=== PATIENT | female | born 1950 | race Hispanic/Latino ===

== ENCOUNTER 2021-04-06 17:16 | Inpatient (IN) | payer MEDICARE ==
[2021-04-06] MEDS: QUEtiapine 100 MG TAB PO SCH (21:56)
[2021-04-06] MEDS ORDERED: traMADol 50 MG TAB PO ONE (22:00)
--- NOTE | 2021-04-07 09:18 | History and Physical Report ---
GP History & Physical - History of Present Illness Date of admission: 04/06/21 Date of Examination: 04/07/21 Reason for Admission: Failure of Outpatient Treatment, Severe anxiety/depression, Unable to care for self History of Present Illness: Per Admission note: pt is a 70yrs old female admitted to the for bipolar disorder, pt arrived to the unit at approximately 1915 via stretcher accompanied by EMS staff, pt was taken to her room, pt was transfer from stretcher to bed. pt is alert and oriented to person, pt is confused, disorganized, responding to internal stimuli, she does not known why she is here, pt is easily irritable. pt refused to sign admission paper,.pt is non ambulatory, incontinent of bowel and bladder. pt has hx of right hip prosthesis infection, chronic GERD, chronic encephalopathy, frequent fall, osteoporosis, bipolar disorder, right total hip arthroplasty. skin assessment completed, pt noted to have scare on right hip, groin area rash, scab on left ankle, bruises on upper extremity, dressing noted on right foot. pt oriented to the unit, unit guideline explained, no distress noted, will continue to monitor for safety. pt on fall precaution, seroquel 300mg po and tramadol 50 mg po given at bedtime. pt has few bite of sandwich and cup of juice. see vital section for vital signs. The patient was seen today, she is disheveled and disrobed. There is items all over her floor. She is confused and agitated. She is yelling out. She has poor insight and unable to give any history or insight as to what is presently going on with her. PAST PSYCHIATRIC HISTORY: Unable to obtain PAST MEDICAL HISTORY: None reported Family Psychiatric History: None reported or documented SOCIAL HISTORY Unable to obtain REVIEW OF SYSTEMS Unable to obtain MENTAL STATUS EXAMINATION General Appearance and Behavior: Age appropriate, good hygiene, not wearing appropriate clothes, good eye contact, cooperative polite with questioning. Cooperation: Participating/engaged Psychomotor Behavior: Psychomotor agitation Mood: Good Affect and affective range: congruent with stated mood Thought Process: Circumstantial, Illogical, Thought Content: None Speech: Normal tone and pace Suicidal Ideation:SI Homicidal Ideation: Denies HIl Impulse Control: Impaired Insight and Judgment: Poor insight and judgment Memory: Limited Attention: Divided attention impaired Orientation: Alert, oriented, Assessment and Plan (1) Bipolar disorder with psychotic features Current Visit: Yes Status: Acute Treatment Plan Patient admitted for inpatient psychiatric evaluation, medication adjustment and close monitoring The patient's behavior, mood, sleep and appetite will be closely monitored. Patient enrolled in individual and group therapeutic sessions and encouraged to attend. Patient provided with a safe and structured environment. Patient's physical health needs will be addressed by the Hospitalist. Hospitalist Consulted Labs including CBC, CMP, Lipid profile and Hemoglobin A1C levels ordered for baseline reference Social Assessment will be completed and the Operations Administrative Assistant will work with patient and family to ensure a suitable and safe disposition Medication adjustment will be made as clinically indicated Restarted home medications Usual Wellness Caodaism/Preservation: - Start Melatonin 5 mg po QHS to promote circadian rhythm - Start [place]-3 for brain health, reduce impulsivity, and as adjunctive treatment for mood disorder, continue upon discharge given overall benefits. The patient agreed on the treatment plan, understood the risk, benefit, alt ernative treatment, potential consequence of no treatment, and gave informed consent. Estimated days: 7 Post hospital care: primary care provider, psychiatric provider This certifies that the patient will be treated for agitation Case staffed with Dr. Hawkins Legal Status: Voluntary Reaction to Hospitalization: Accepting Medications and Allergies Allergies Allergy/AdvReac Type Severity Reaction Status Date / Time lithium AdvReac Unknown Unverified 04/06/21 17:18 Home Medications Medication Instructions Recorded Confirmed Last Taken Type Cholecalciferol Vit D3 [Vitamin D3 1,000 units PO DAILY 04/07/21 04/07/21 Unknown History 1,000 UNIT TAB] Enoxaparin 40 mg SUB-Q DAILY 04/07/21 04/07/21 Unknown History Omeprazole 20 mg PO DAILY 04/07/21 04/07/21 Unknown History Oxycodone HCl [oxyCODONE] 10 mg PO Q6HR PRN 04/07/21 04/07/21 Unknown History QUEtiapine [SEROquel] 25 mg PO Q6HR PRN 04/07/21 04/07/21 Unknown History Quetiapine Fumarate [SEROquel] 300 mg PO BID 04/07/21 04/07/21 Unknown History Thiamine [Vitamin B-1] 100 mg PO DAILY 04/07/21 04/07/21 Unknown History lamoTRIgine [LaMICtal] 100 mg PO BID 04/07/21 04/07/21 Unknown History traMADoL [Ultram 50 MG tab] 50 mg PO Q12HR PRN 04/07/21 04/07/21 Unknown History Active Meds: Active Medications Quetiapine Fumarate (Quetiapine 100 Mg Tab) 300 mg PO BID [facility] Last Admin: 04/06/21 21:56 Dose: 300 mg Documented by: Results - Results Labs/Vitals: Laboratory Last Values POC Glucose 90 mg/dL (70-105) 04/06/21 21:28 Last Vital Signs Temp 97.7 F 04/06/21 22:00 Pulse 117 H 04/06/21 22:00 Resp 20 04/06/21 22:00 BP 136/86 04/06/21 22:00 Pulse Ox 99 04/06/21 22:00 Physical Examination - Constitutional Vitals: Vital Signs Temp Pulse Resp BP Pulse Ox 97.7 F 117 H 20 136/86 99 04/06/21 22:00 04/06/21 22:00 04/06/21 22:00 04/06/21 22:00 04/06/21 22:00 Temperature -Last 24 Hours Temperature 97.7 F Mental Status Exam - Vital signs Last Vital Signs Temp 97.7 F 04/06/21 22:00 Pulse 117 H 04/06/21 22:00 Resp 20 04/06/21 22:00 BP 136/86 04/06/21 22:00 Pulse Ox 99 04/06/21 22:00 Physician Certification - Certification Statement Physician Certification Statement: This is an acknowledgement statement that JORDANA LORENZO is a 70 year old F who requires inpatient psychiatric admission for treatment which could reasonably be expected to improve the patient's condition for Estimated period of time patient will need to remain in the hospital: [ ] Plan for post-hospital care: [ ]
[2021-04-07] MEDS ORDERED: QUEtiapine 25 MG TAB PO PRN (09:22)
[2021-04-07] MEDS ORDERED: NON-FORMULARY EACH (Omeprazole [Omeprazole] 20 MG Capsule.Dr) PO SCH (10:00)
[2021-04-07] MEDS: QUEtiapine 100 MG TAB PO SCH ×2 (11:28→21:08)
[2021-04-07] MEDS: lamoTRIgine 100 MG TAB PO SCH ×2 (11:30→21:08)
[2021-04-07] MEDS: PANTOPRAZOLE 20 MG TAB PO SCH (11:30)
[2021-04-07 13:17] LABS: Basophils % (Auto) 0.3 % (0.0-1.8); Eosinophils % (Auto) 0.3 % (0.0-4.3); Hematocrit 30.1 % (30.3-42.9); Hemoglobin 9.8 gm/dl (10.1-14.3); Lymphocytes # (Auto) 1.2 K/mm3 (1.2-5.4); Lymphocytes % (Auto) 18.3 % (13.4-35.0); Mean Corpuscular HGB Conc 33 % (30-34); Mean Corpuscular Volume 89 fl (79-97); Monocytes # (Auto) 0.5 K/mm3 (0.0-0.8); Monocytes % (Auto) 7.3 % (0.0-7.3); Platelet Count 402 K/mm3 (140-440); Red Blood Count 3.39 M/mm3 (3.65-5.03); Red Cell Distribution Width 18.4 % (13.2-15.2)
[2021-04-07 13:44] LABS: Alanine Aminotransferase 21 units/L (7-56); Albumin 2.5 g/dL (3.9-5); Blood Urea Nitrogen 9 mg/dL (7-17); Calcium 8.2 mg/dL (8.4-10.2); Hemolysis Index 9
[2021-04-07 13:45] LABS: BUN/Creatinine Ratio 13
--- NOTE | 2021-04-07 14:45 | Consultation ---
History of Present Illness - Reason for Consult Consult date: 04/07/21 Medical Management Requesting physician: APRIL GANDHI - History of Present Illness 70 YO Female with Bipolar Disorder, Vascular Dementia, Cerebral Atherosclerosis, GERD, Asthma, Chronic Pain Syndrome, Osteoperosis admitted to [facility] for Psychiatric stabilization. Patient seen and evaluated in the recreation room. No reported nursing events. Patient appears comfortable. Past History Past Medical History: GERD, other (See HPI) Past Surgical History: total hip replacement Social history: Family history: hypertension Medications and Allergies Allergies Allergy/AdvReac Type Severity Reaction Status Date / Time lithium AdvReac Unknown Unverified 04/06/21 17:18 Home Medications Medication Instructions Recorded Confirmed Last Taken Type Amoxicillin [Trimox CAP] 1,000 mg PO BID 04/07/21 04/07/21 Unknown History Cholecalciferol Vit D3 [Vitamin D3 1,000 units PO DAILY 04/07/21 04/07/21 Unknown History 1,000 UNIT TAB] DULoxetine [Cymbalta] 60 mg PO QDAY 04/07/21 04/07/21 Unknown History Docusate Sodium [Colace CAP] 100 mg PO DAILY 04/07/21 04/07/21 Unknown History Enoxaparin 40 mg SUB-Q DAILY 04/07/21 04/07/21 Unknown History Lactobacillus Acidophilus 2 cap PO BID 04/07/21 04/07/21 Unknown History [Acidophilus Lactobacilli] Omeprazole 20 mg PO DAILY 04/07/21 04/07/21 Unknown History Oxycodone HCl [oxyCODONE] 10 mg PO Q6HR PRN 04/07/21 04/07/21 Unknown History QUEtiapine [SEROquel] 25 mg PO Q6HR PRN 04/07/21 04/07/21 Unknown History Quetiapine Fumarate [SEROquel] 300 mg PO BID 04/07/21 04/07/21 Unknown History Thiamine [Vitamin B-1] 100 mg PO DAILY 04/07/21 04/07/21 Unknown History bisacodyL [Dulcolax tab] 10 mg PO DAILY PRN 04/07/21 04/07/21 Unknown History lamoTRIgine [LaMICtal] 100 mg PO BID 04/07/21 04/07/21 Unknown History traMADoL [Ultram 50 MG tab] 50 mg PO Q12HR PRN 04/07/21 04/07/21 Unknown History Active Meds: Active Medications Cholecalciferol (Cholecalciferol (Vit D3) 1000 Unit (25 Mcg) Tab) 1,000 unit PO DAILY [facility] Lamotrigine (Lamotrigine 100 Mg Tab) 100 mg PO BID [facility] Last Admin: 04/07/21 11:30 Dose: 100 mg Documented by: Pantoprazole Sodium (Pantoprazole 20 Mg Tab) 20 mg PO QDAY [facility] Last Admin: 04/07/21 11:30 Dose: 20 mg Documented by: Quetiapine Fumarate (Quetiapine 100 Mg Tab) 300 mg PO BID [facility] Last Admin: 04/07/21 11:28 Dose: 300 mg Documented by: Quetiapine Fumarate (Quetiapine 25 Mg Tab) 25 mg PO Q6HR PRN PRN Reason: Agitation Thiamine HCl (Thiamine 100 Mg Tab) 100 mg PO DAILY [facility] Tramadol HCl (Tramadol 50 Mg Tab) 50 mg PO Q12HR PRN PRN Reason: Pain, Moderate (4-6) Review of Systems ROS unobtainable: due to mental status Exam - Constitutional Vitals: Temp Pulse Resp BP Pulse Ox 97.7 F 117 H 20 136/86 99 04/06/21 22:00 04/06/21 22:00 04/06/21 22:00 04/06/21 22:00 04/06/21 22:00 General appearance: Present: no acute distress, well-nourished - EENT Eyes: Present: PERRL ENT: hearing intact, clear oral mucosa - Neck Neck: Present: supple, normal ROM - Respiratory Respiratory effort: normal Respiratory: bilateral: CTA - Cardiovascular Heart Sounds: Present: S1 & S2. Absent: rub, click - Extremities Extremities: pulses symmetrical, No edema Peripheral Pulses: within normal limits - Abdominal General gastrointestinal: Present: soft, non-tender, non-distended, normal bowel sounds Female genitourinary: Present: normal - Integumentary Integumentary: Present: clear, warm, dry - Musculoskeletal Musculoskeletal: gait normal, strength equal bilaterally - Psychiatric Psychiatric: no intact judgment & insight, no memory intact - Neurologic Neurologic: CNII-XII intact, moves all extremities Results - Labs CBC & Chem 7: 04/07/21 12:56 04/07/21 12:56 Labs: Abnormal lab results 04/07/21 04/07/21 Range/Units 12:56 12:56 RBC 3.39 L (3.65-5.03) M/mm3 Hgb 9.8 L (10.1-14.3) gm/dl Hct 30.1 L (30.3-42.9) % RDW 18.4 H (13.2-15.2) % Seg Neutrophils % 73.8 H (40.0-70.0) % Sodium 131 L (137-145) mmol/L Chloride 97.3 L (98-107) mmol/L Carbon Dioxide 21 L (22-30) mmol/L Glucose 181 H (65-100) mg/dL Calcium 8.2 L (8.4-10.2) mg/dL Alkaline Phosphatase 334 H (35-129) units/L Total Protein 5.3 L (6.3-8.2) g/dL Albumin 2.5 L (3.9-5) g/dL Assessment and Plan - Patient Problems (1) Vascular dementia with behavioral disturbance Current Visit: Yes Status: Acute Plan to address problem: For prompting, verbal redirection, benzodiazepine therapy as clinically indicated. (2) Cerebral atherosclerosis Current Visit: Yes Status: Acute Plan to address problem: Antiplatelet therapy, supportive care, continue medical management (3) Chronic pain syndrome Current Visit: Yes Status: Acute Plan to address problem: Pain control, supportive care. (4) GERD (gastroesophageal reflux disease) Current Visit: Yes Status: Acute Plan to address problem: PPI therapy, supportive care.
[2021-04-07] MEDS: CHOLECALCIFEROL (VIT D3) 1000 UNIT (25 mcg) TAB PO SCH (15:23)
[2021-04-07] MEDS: THIAMINE 100 MG TAB PO SCH (15:23)
--- NOTE | 2021-04-08 08:26 | Progress Note ---
Subjective Date of service: 04/08/21 Principal diagnosis: Bipolar disorder Subjective Comment: Per Psych Nurse: 70 YO Female with Bipolar Disorder, Vascular Dementia, Cerebral Atherosclerosis, GERD, Asthma, Chronic Pain Syndrome, Osteoperosis admitted to [facility] for Psychiatric stabilization. Patient seen and evaluated in the recreation room. No reported nursing events. Patient appears comfortable. Psych Progress HPI In my interview with the patient this morning, the patient reports mood as just okay, she thinkss she is [facility] and been treated for dementia. Patient knows year but does not know the month. Patient reported by nurse to intermittently yell, scream and appears to be talking to family members. Today patient says she plans to read. Reason for continuing inpatient treatment: Pt presents as confused but has dementia, will continue to observe for behv disturbances Review of Symptoms: Constitutional: Negative for weight loss ENT: Negative for stridor Respiratory: Negative for cough or hemoptysis All other systems reviewed and are negative MENTAL STATUS EXAMINATION General Appearance and Behavior: Age appropriate, good hygiene, wearing appropriate clothes, poor eye contact, uncooperative with questioning. Cooperation: disengaged Psychomotor Behavior: Psychomotor agitation Mood: n/a Affect and affective range: euthymic, euphoric Thought Process: Illogical, echolalial Thought Content: delusional Speech: pressured, loud volume at times Intellectual Functioning: Average Suicidal Ideation: n/a Homicidal Ideation: n/a Impulse Control: Impaired Insight and Judgment: Limited insight and judgment Memory: Short-term memory impaired Attention: Divided attention impaired Orientation: Alert, Treatment Plan Cotinue current meds Patient admitted for inpatient psychiatric evaluation, medication adjustment and close monitoring The patient's behavior, mood, sleep and appetite will be closely monitored. Patient enrolled in individual and group therapeutic sessions and encouraged to attend. Patient provided with a safe and structured environment. Patient's physical health needs will be addressed by the Hospitalist. Hospitalist Consulted Labs including CBC, CMP, Lipid profile and Hemoglobin A1C levels ordered for baseline reference Social Assessment will be completed and the Psych Rn will work with patient and family to ensure a suitable and safe disposition Medication adjustment will be made as clinically indicated Usual Wellness Yarsanism/Preservation: - Start Trazodone 50 mg po QHS & 50 mg po QHS PRN between 10 PM & 2 AM for insomnia - Start Melatonin 5 mg po QHS to promote circadian rhythm - Start [place]-3 for brain health, reduce impulsivity, and as adjunctive treatment for mood disorder, continue upon discharge given overall benefits. - Start B1 prophylaxis with 200 mg po for 5 days The patient agreed on the treatment plan, understood the risk, benefit, alternative treatment, potential consequence of no treatment, and gave informed consent. Initial Certification Inpatient psych services: I certify that the inpatient psychiatric services are required for treatment that could reasonably be expected to improve the patient's condition. Estimated days: 5 Post hospital care: primary care provider, psychiatric provider Medications and Allergies Allergies Allergy/AdvReac Type Severity Reaction Status Date / Time lithium AdvReac Unknown Unverified 04/06/21 17:18 Home Medications Medication Instructions Recorded Confirmed Last Taken Type Amoxicillin [Trimox CAP] 1,000 mg PO BID 04/07/21 04/07/21 Unknown History Cholecalciferol Vit D3 [Vitamin D3 1,000 units PO DAILY 04/07/21 04/07/21 Unknown History 1,000 UNIT TAB] DULoxetine [Cymbalta] 60 mg PO QDAY 04/07/21 04/07/21 Unknown History Docusate Sodium [Colace CAP] 100 mg PO DAILY 04/07/21 04/07/21 Unknown History Enoxaparin 40 mg SUB-Q DAILY 04/07/21 04/07/21 Unknown History Lactobacillus Acidophilus 2 cap PO BID 04/07/21 04/07/21 Unknown History [Acidophilus Lactobacilli] Omeprazole 20 mg PO DAILY 04/07/21 04/07/21 Unknown History Oxycodone HCl [oxyCODONE] 10 mg PO Q6HR PRN 04/07/21 04/07/21 Unknown History QUEtiapine [SEROquel] 25 mg PO Q6HR PRN 04/07/21 04/07/21 Unknown History Quetiapine Fumarate [SEROquel] 300 mg PO BID 04/07/21 04/07/21 Unknown History Thiamine [Vitamin B-1] 100 mg PO DAILY 04/07/21 04/07/21 Unknown History bisacodyL [Dulcolax tab] 10 mg PO DAILY PRN 04/07/21 04/07/21 Unknown History lamoTRIgine [LaMICtal] 100 mg PO BID 04/07/21 04/07/21 Unknown History traMADoL [Ultram 50 MG tab] 50 mg PO Q12HR PRN 04/07/21 04/07/21 Unknown History Active Meds: Active Medications Bisacodyl (Bisacodyl 5 Mg Tab) 10 mg PO DAILY PRN PRN Reason: Constipation Cholecalciferol (Cholecalciferol (Vit D3) 1000 Unit (25 Mcg) Tab) 1,000 unit PO DAILY [facility] Last Admin: 04/07/21 15:23 Dose: Not Given Documented by: Docusate Sodium (Docusate Sodium 100 Mg Cap) 100 mg PO DAILY [facility] Lamotrigine (Lamotrigine 100 Mg Tab) 100 mg PO BID [facility] Last Admin: 04/07/21 21:08 Dose: 100 mg Documented by: Pantoprazole Sodium (Pantoprazole 20 Mg Tab) 20 mg PO QDAY [facility] Last Admin: 04/07/21 11:30 Dose: 20 mg Documented by: Quetiapine Fumarate (Quetiapine 100 Mg Tab) 300 mg PO BID [facility] Last Admin: 04/07/21 21:08 Dose: 300 mg Documented by: Thiamine HCl (Thiamine 100 Mg Tab) 100 mg PO DAILY [facility] Last Admin: 04/07/21 15:23 Dose: Not Given Documented by: Tramadol HCl (Tramadol 50 Mg Tab) 50 mg PO Q12HR PRN PRN Reason: Pain, Moderate (4-6) Results - Results Labs/Vitals: Laboratory Last Values WBC 6.3 K/mm3 (4.5-11.0) 04/07/21 12:56 RBC 3.39 M/mm3 (3.65-5.03) L 04/07/21 12:56 Hgb 9.8 gm/dl (10.1-14.3) L 04/07/21 12:56 Hct 30.1 % (30.3-42.9) L 04/07/21 12:56 MCV 89 fl (79-97) 04/07/21 12:56 MCH 29 pg (28-32) 04/07/21 12:56 MCHC 33 % (30-34) 04/07/21 12:56 RDW 18.4 % (13.2-15.2) H 04/07/21 12:56 Plt Count 402 K/mm3 (140-440) 04/07/21 12:56 Lymph % (Auto) 18.3 % (13.4-35.0) 04/07/21 12:56 [place] % (Auto) 7.3 % (0.0-7.3) 04/07/21 12:56 Eos % (Auto) 0.3 % (0.0-4.3) 04/07/21 12:56 Baso % (Auto) 0.3 % (0.0-1.8) 04/07/21 12:56 Lymph # (Auto) 1.2 K/mm3 (1.2-5.4) 04/07/21 12:56 [place] # (Auto) 0.5 K/mm3 (0.0-0.8) 04/07/21 12:56 Eos # (Auto) 0.0 K/mm3 (0.0-0.4) 04/07/21 12:56 Baso # (Auto) 0.0 K/mm3 (0.0-0.1) 04/07/21 12:56 Seg Neutrophils % 73.8 % (40.0-70.0) H 04/07/21 12:56 Seg Neutrophils # 4.7 K/mm3 (1.8-7.7) 04/07/21 12:56 Sodium 131 mmol/L (137-145) L 04/07/21 12:56 Potassium 3.6 mmol/L (3.6-5.0) 04/07/21 12:56 Chloride 97.3 mmol/L (98-107) L 04/07/21 12:56 Carbon Dioxide 21 mmol/L (22-30) L 04/07/21 12:56 Anion Gap 16 mmol/L 04/07/21 12:56 BUN 9 mg/dL (7-17) 04/07/21 12:56 Creatinine 0.7 mg/dL (0.6-1.2) 04/07/21 12:56 Estimated GFR > 60 ml/min 04/07/21 12:56 BUN/Creatinine Ratio 13 % 04/07/21 12:56 Glucose 181 mg/dL (65-100) H 04/07/21 12:56 POC Glucose 90 mg/dL (70-105) 04/06/21 21:28 Calcium 8.2 mg/dL (8.4-10.2) L 04/07/21 12:56 Total Bilirubin 0.20 mg/dL (0.1-1.2) 04/07/21 12:56 AST 23 units/L (5-40) 04/07/21 12:56 ALT 21 units/L (7-56) 04/07/21 12:56 Alkaline Phosphatase 334 units/L (35-129) H 04/07/21 12:56 Total Protein 5.3 g/dL (6.3-8.2) L 04/07/21 12:56 Albumin 2.5 g/dL (3.9-5) L 04/07/21 12:56 Albumin/Globulin Ratio 0.9 % 04/07/21 12:56 Last Vital Signs Temp 98.6 F 04/07/21 19:47 Pulse 98 H 04/07/21 19:47 Resp 17 04/07/21 19:47 BP 125/77 04/07/21 19:47 Pulse Ox 100 04/07/21 19:47
[2021-04-08] MEDS: QUEtiapine 100 MG TAB PO SCH ×2 (10:50→21:08)
[2021-04-08] MEDS: PANTOPRAZOLE 20 MG TAB PO SCH (10:53)
[2021-04-08] MEDS: lamoTRIgine 100 MG TAB PO SCH ×2 (10:54→21:08)
[2021-04-08] MEDS: CHOLECALCIFEROL (VIT D3) 1000 UNIT (25 mcg) TAB PO SCH (10:54)
[2021-04-08] MEDS: THIAMINE 100 MG TAB PO SCH (10:55)
[2021-04-08] MEDS: DOCUSATE SODIUM 100 MG CAP PO SCH (12:33)
[2021-04-08] MEDS: traMADol 50 MG TAB PO PRN (21:08)
--- NOTE | 2021-04-09 07:20 | Progress Note ---
Subjective Date of service: 04/09/21 Principal diagnosis: Bipolar disorder Subjective Comment: Per Psych Nurse: pt spent last evening in activity room sitting quietly in evy chair, alert and oriented to person and place, calm and cooperative, confused, forgetful, able to make needs known, c/o of right hip pain, 9/10 on pain level, tramadol 50mg po given with bedtime medication, no behavioral issue, refused snack, non ambulatory, no distress noted, will continue to monitor for safety Psych Progress HPI Patient seen this AM, in room and in bed, says she still need a minute to sleep. Nursing note reviewed. Pt confused, due to demential but calm and cooperative per nursing notes. Per brother, he reports though patient has history of bipolar but her confusion and memory issues started after her hip surgery couple of months ago, and since then she has been forgetful and confused. Denies major behv health issues. Reason for continuing inpatient treatment: Pt presents as confused but has dementia, will continue to observe for behv disturbances Review of Symptoms: Constitutional: Negative for weight loss ENT: Negative for stridor Respiratory: Negative for cough or hemoptysis All other systems reviewed and are negative MENTAL STATUS EXAMINATION General Appearance and Behavior: Age appropriate, good hygiene, wearing appropriate clothes, poor eye contact, uncooperative with questioning. Cooperation: disengaged Psychomotor Behavior: Psychomotor agitation Mood: n/a Affect and affective range: euthymic, euphoric Thought Process: Illogical, echolalial Thought Content: delusional Speech: pressured, loud volume at times Intellectual Functioning: Average Suicidal Ideation: n/a Homicidal Ideation: n/a Impulse Control: Impaired Insight and Judgment: Limited insight and judgment Memory: Short-term memory impaired Attention: Divided attention impaired Orientation: Alert, Treatment Plan Continue current meds Patient admitted for inpatient psychiatric evaluation, medication adjustment and close monitoring The patient's behavior, mood, sleep and appetite will be closely monitored. Patient enrolled in individual and group therapeutic sessions and encouraged to attend. Patient provided with a safe and structured environment. Patient's physical health needs will be addressed by the Hospitalist. Hospitalist Consulted Labs including CBC, CMP, Lipid profile and Hemoglobin A1C levels ordered for baseline reference Social Assessment will be completed and the Advanced Practice Professional will work with patient and family to ensure a suitable and safe disposition Medication adjustment will be made as clinically indicated Usual Wellness Caodaism/Preservation: - Start Trazodone 50 mg po QHS & 50 mg po QHS PRN between 10 PM & 2 AM for insomnia - Start Melatonin 5 mg po QHS to promote circadian rhythm - Start Beason-3 for brain health, reduce impulsivity, and as adjunctive treatment for mood disorder, continue upon discharge given overall benefits. - Start B1 prophylaxis with 200 mg po for 5 days The patient agreed on the treatment plan, understood the risk, benefit, alternative treatment, potential consequence of no treatment, and gave informed consent. Initial Certification Inpatient psych services: I certify that the inpatient psychiatric services are required for treatment that could reasonably be expected to improve the patient's condition. Estimated days: 5 Post hospital care: primary care provider, psychiatric provider Medications and Allergies Allergies Allergy/AdvReac Type Severity Reaction Status Date / Time lithium AdvReac Unknown Unverified 04/06/21 17:18 Home Medications Medication Instructions Recorded Confirmed Last Taken Type Amoxicillin [Trimox CAP] 1,000 mg PO BID 04/07/21 04/07/21 Unknown History Cholecalciferol Vit D3 [Vitamin D3 1,000 units PO DAILY 04/07/21 04/07/21 Unknown History 1,000 UNIT TAB] DULoxetine [Cymbalta] 60 mg PO QDAY 04/07/21 04/07/21 Unknown History Docusate Sodium [Colace CAP] 100 mg PO DAILY 04/07/21 04/07/21 Unknown History Enoxaparin 40 mg SUB-Q DAILY 04/07/21 04/07/21 Unknown History Lactobacillus Acidophilus 2 cap PO BID 04/07/21 04/07/21 Unknown History [Acidophilus Lactobacilli] Omeprazole 20 mg PO DAILY 04/07/21 04/07/21 Unknown History Oxycodone HCl [oxyCODONE] 10 mg PO Q6HR PRN 04/07/21 04/07/21 Unknown History QUEtiapine [SEROquel] 25 mg PO Q6HR PRN 04/07/21 04/07/21 Unknown History Quetiapine Fumarate [SEROquel] 300 mg PO BID 04/07/21 04/07/21 Unknown History Thiamine [Vitamin B-1] 100 mg PO DAILY 04/07/21 04/07/21 Unknown History bisacodyL [Dulcolax tab] 10 mg PO DAILY PRN 04/07/21 04/07/21 Unknown History lamoTRIgine [LaMICtal] 100 mg PO BID 04/07/21 04/07/21 Unknown History traMADoL [Ultram 50 MG tab] 50 mg PO Q12HR PRN 04/07/21 04/07/21 Unknown History Active Meds: Active Medications Bisacodyl (Bisacodyl 5 Mg Tab) 10 mg PO DAILY PRN PRN Reason: Constipation Cholecalciferol (Cholecalciferol (Vit D3) 1000 Unit (25 Mcg) Tab) 1,000 unit PO DAILY [facility] Last Admin: 04/08/21 10:54 Dose: 1,000 unit Documented by: Docusate Sodium (Docusate Sodium 100 Mg Cap) 100 mg PO DAILY [facility] Last Admin: 04/08/21 12:33 Dose: Not Given Documented by: Lamotrigine (Lamotrigine 100 Mg Tab) 100 mg PO BID [facility] Last Admin: 04/08/21 21:08 Dose: 100 mg Documented by: Pantoprazole Sodium (Pantoprazole 20 Mg Tab) 20 mg PO QDAY [facility] Last Admin: 04/08/21 10:53 Dose: 20 mg Documented by: Quetiapine Fumarate (Quetiapine 100 Mg Tab) 300 mg PO BID [facility] Last Admin: 04/08/21 21:08 Dose: 300 mg Documented by: Thiamine HCl (Thiamine 100 Mg Tab) 100 mg PO DAILY [facility] Last Admin: 04/08/21 10:55 Dose: 100 mg Documented by: Tramadol HCl (Tramadol 50 Mg Tab) 50 mg PO Q12HR PRN PRN Reason: Pain, Moderate (4-6) Last Admin: 04/08/21 21:08 Dose: 50 mg Documented by: Results - Results Labs/Vitals: Laboratory Last Values WBC 6.3 K/mm3 (4.5-11.0) 04/07/21 12:56 RBC 3.39 M/mm3 (3.65-5.03) L 04/07/21 12:56 Hgb 9.8 gm/dl (10.1-14.3) L 04/07/21 12:56 Hct 30.1 % (30.3-42.9) L 04/07/21 12:56 MCV 89 fl (79-97) 04/07/21 12:56 MCH 29 pg (28-32) 04/07/21 12:56 MCHC 33 % (30-34) 04/07/21 12:56 RDW 18.4 % (13.2-15.2) H 04/07/21 12:56 Plt Count 402 K/mm3 (140-440) 04/07/21 12:56 Lymph % (Auto) 18.3 % (13.4-35.0) 04/07/21 12:56 [place] % (Auto) 7.3 % (0.0-7.3) 04/07/21 12:56 Eos % (Auto) 0.3 % (0.0-4.3) 04/07/21 12:56 Baso % (Auto) 0.3 % (0.0-1.8) 04/07/21 12:56 Lymph # (Auto) 1.2 K/mm3 (1.2-5.4) 04/07/21 12:56 [place] # (Auto) 0.5 K/mm3 (0.0-0.8) 04/07/21 12:56 Eos # (Auto) 0.0 K/mm3 (0.0-0.4) 04/07/21 12:56 Baso # (Auto) 0.0 K/mm3 (0.0-0.1) 04/07/21 12:56 Seg Neutrophils % 73.8 % (40.0-70.0) H 04/07/21 12:56 Seg Neutrophils # 4.7 K/mm3 (1.8-7.7) 04/07/21 12:56 Sodium 131 mmol/L (137-145) L 04/07/21 12:56 Potassium 3.6 mmol/L (3.6-5.0) 04/07/21 12:56 Chloride 97.3 mmol/L (98-107) L 04/07/21 12:56 Carbon Dioxide 21 mmol/L (22-30) L 04/07/21 12:56 Anion Gap 16 mmol/L 04/07/21 12:56 BUN 9 mg/dL (7-17) 04/07/21 12:56 Creatinine 0.7 mg/dL (0.6-1.2) 04/07/21 12:56 Estimated GFR > 60 ml/min 04/07/21 12:56 BUN/Creatinine Ratio 13 % 04/07/21 12:56 Glucose 181 mg/dL (65-100) H 04/07/21 12:56 POC Glucose 90 mg/dL (70-105) 04/06/21 21:28 Calcium 8.2 mg/dL (8.4-10.2) L 04/07/21 12:56 Total Bilirubin 0.20 mg/dL (0.1-1.2) 04/07/21 12:56 AST 23 units/L (5-40) 04/07/21 12:56 ALT 21 units/L (7-56) 04/07/21 12:56 Alkaline Phosphatase 334 units/L (35-129) H 04/07/21 12:56 Total Protein 5.3 g/dL (6.3-8.2) L 04/07/21 12:56 Albumin 2.5 g/dL (3.9-5) L 04/07/21 12:56 Albumin/Globulin Ratio 0.9 % 04/07/21 12:56 Last Vital Signs Temp 98.6 F 04/08/21 20:04 Pulse 82 04/09/21 00:21 Resp 18 04/08/21 21:08 BP 104/62 04/09/21 00:04 Pulse Ox 99 04/08/21 20:04
[2021-04-09] MEDS: lamoTRIgine 100 MG TAB PO SCH ×2 (10:50→22:13)
[2021-04-09] MEDS: CHOLECALCIFEROL (VIT D3) 1000 UNIT (25 mcg) TAB PO SCH (10:50)
[2021-04-09] MEDS: THIAMINE 100 MG TAB PO SCH (10:50)
[2021-04-09] MEDS: DOCUSATE SODIUM 100 MG CAP PO SCH (10:50)
[2021-04-09] MEDS: QUEtiapine 100 MG TAB PO SCH ×2 (10:50→22:13)
[2021-04-09] MEDS: PANTOPRAZOLE 20 MG TAB PO SCH (10:50)
[2021-04-09] MEDS ORDERED: NON-FORMULARY EACH (Oxycodone Hcl [Oxycodone] 10 MG Tablet) PO PRN (18:14)
[2021-04-09] MEDS ORDERED: oxyCODONE 5 MG TAB PO PRN (18:28)
[2021-04-09] MEDS ORDERED: LACTOBACILLUS ACIDOPHILUS PO SCH (22:00)
[2021-04-09] MEDS: LACTINEX CHEW TAB PO SCH (22:13)
--- NOTE | 2021-04-10 06:59 | Progress Note ---
Subjective Date of service: 04/10/21 Principal diagnosis: Bipolar disorder Subjective Comment: Per Psych Nurse:The patient was uncooperative with adls but afterward spent the day in the activity room. She mostly talked to herself. She was unable to have a coherent conversation with her peers but she attempted. She denies si/hi/ah/vh. She does appear to respond to internal stimuli. Her appetite is fair and she is medication compliant. Contacted Dr. Acosta regarding her medical meds being reconciled and asking him to look at for ordering. Will continue to monitor patient for safety. Psych Progress HPI Patient in room, patient begging and asking to be allowed to get up states that she needs to get dressed and go to school. Informed patient that she no longer goes to school because of her age but pt began to cry and says no she needs to go to school. 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 Per brother, he reports though patient has history of bipolar but her confusion and memory issues started after her hip surgery couple of months ago, and since then she has been forgetful and confused. Denies major behv health issues. Reason for continuing inpatient treatment: Memory issues s/p Anesthesia, discussed with brother patient may benefit from memory program, will start planning discharge from psychiatric standpoint Review of Symptoms: Constitutional: Negative for weight loss ENT: Negative for stridor Respiratory: Negative for cough or hemoptysis All other systems reviewed and are negative MENTAL STATUS EXAMINATION General Appearance and Behavior: Age appropriate, good hygiene, wearing ap propriate clothes, poor eye contact, uncooperative with questioning. Cooperation: disengaged Psychomotor Behavior: Psychomotor agitation Mood: n/a Affect and affective range: euthymic, euphoric Thought Process: Illogical, echolalial Thought Content: delusional Speech: pressured, loud volume at times Intellectual Functioning: Average Suicidal Ideation: n/a Homicidal Ideation: n/a Impulse Control: Impaired Insight and Judgment: Limited insight and judgment Memory: Short-term memory impaired Attention: Divided attention impaired Orientation: Alert, Treatment Plan Continue current meds Patient admitted for inpatient psychiatric evaluation, medication adjustment and close monitoring The patient's behavior, mood, sleep and appetite will be closely monitored. Patient enrolled in individual and group therapeutic sessions and encouraged to attend. Patient provided with a safe and structured environment. Patient's physical health needs will be addressed by the Hospitalist. Hospitalist Consulted Labs including CBC, CMP, Lipid profile and Hemoglobin A1C levels ordered for baseline reference Social Assessment will be completed and the Weed Inspector will work with patient and family to ensure a suitable and safe disposition Medication adjustment will be made as clinically indicated Usual Wellness Jew/Preservation: - Start Trazodone 50 mg po QHS & 50 mg po QHS PRN between 10 PM & 2 AM for insomnia - Start Melatonin 5 mg po QHS to promote circadian rhythm - Start Bath-3 for brain health, reduce impulsivity, and as adjunctive treatment for mood disorder, continue upon discharge given overall benefits. - Start B1 prophylaxis with 200 mg po for 5 days The patient agreed on the treatment plan, understood the risk, benefit, alternative treatment, potential consequence of no treatment, and gave informed consent. Initial Certification Inpatient psych services: I certify that the inpatient psychiatric services are required for treatment that could reasonably be expected to improve the patient's condition. Estimated days: 5 Post hospital care: primary care provider, psychiatric provider Medications and Allergies Allergies Allergy/AdvReac Type Severity Reaction Status Date / Time lithium AdvReac Unknown Unverified 04/06/21 17:18 Home Medications Medication Instructions Recorded Confirmed Last Taken Type Amoxicillin [Trimox CAP] 1,000 mg PO BID 04/07/21 04/07/21 Unknown History Cholecalciferol Vit D3 [Vitamin D3 1,000 units PO DAILY 04/07/21 04/07/21 Unknown History 1,000 UNIT TAB] DULoxetine [Cymbalta] 60 mg PO QDAY 04/07/21 04/07/21 Unknown History Docusate Sodium [Colace CAP] 100 mg PO DAILY 04/07/21 04/07/21 Unknown History Enoxaparin 40 mg SUB-Q DAILY 04/07/21 04/07/21 Unknown History Lactobacillus Acidophilus 2 cap PO BID 04/07/21 04/07/21 Unknown History [Acidophilus Lactobacilli] Omeprazole 20 mg PO DAILY 04/07/21 04/07/21 Unknown History Oxycodone HCl [oxyCODONE] 10 mg PO Q6HR PRN 04/07/21 04/07/21 Unknown History QUEtiapine [SEROquel] 25 mg PO Q6HR PRN 04/07/21 04/07/21 Unknown History Quetiapine Fumarate [SEROquel] 300 mg PO BID 04/07/21 04/07/21 Unknown History Thiamine [Vitamin B-1] 100 mg PO DAILY 04/07/21 04/07/21 Unknown History bisacodyL [Dulcolax tab] 10 mg PO DAILY PRN 04/07/21 04/07/21 Unknown History lamoTRIgine [LaMICtal] 100 mg PO BID 04/07/21 04/07/21 Unknown History traMADoL [Ultram 50 MG tab] 50 mg PO Q12HR PRN 04/07/21 04/07/21 Unknown History Active Meds: Active Medications Bisacodyl (Bisacodyl 5 Mg Tab) 10 mg PO DAILY PRN PRN Reason: Constipation Cholecalciferol (Cholecalciferol (Vit D3) 1000 Unit (25 Mcg) Tab) 1,000 unit PO DAILY [facility] Last Admin: 04/09/21 10:50 Dose: 1,000 unit Documented by: Docusate Sodium (Docusate Sodium 100 Mg Cap) 100 mg PO DAILY [facility] Last Admin: 04/09/21 10:50 Dose: 100 mg Documented by: Duloxetine HCl (Duloxetine 30 Mg Cap) 60 mg PO QDAY [facility] Enoxaparin Sodium (Enoxaparin 40 Mg/0.4 Ml Inj) 40 mg SUB-Q DAILY [facility]; Protocol Lactobacillus Acidophilus (Lactinex Chew Tab) 2 each PO BID [facility] Last Admin: 04/09/21 22:13 Dose: 2 each Documented by: Lamotrigine (Lamotrigine 100 Mg Tab) 100 mg PO BID [facility] Last Admin: 04/09/21 22:13 Dose: 100 mg Documented by: Oxycodone HCl (Oxycodone 5 Mg Tab) 10 mg PO Q6H PRN PRN Reason: Pain, Moderate (4-6) Pantoprazole Sodium (Pantoprazole 20 Mg Tab) 20 mg PO QDAY [facility] Last Admin: 04/09/21 10:50 Dose: 20 mg Documented by: Quetiapine Fumarate (Quetiapine 100 Mg Tab) 300 mg PO BID [facility] Last Admin: 04/09/21 22:13 Dose: 300 mg Documented by: Thiamine HCl (Thiamine 100 Mg Tab) 100 mg PO DAILY [facility] Last Admin: 04/09/21 10:50 Dose: 100 mg Documented by: Tramadol HCl (Tramadol 50 Mg Tab) 50 mg PO Q12HR PRN PRN Reason: Pain, Moderate (4-6) Last Admin: 04/08/21 21:08 Dose: 50 mg Documented by: Results - Results Labs/Vitals: Laboratory Last Values WBC 6.3 K/mm3 (4.5-11.0) 04/07/21 12:56 RBC 3.39 M/mm3 (3.65-5.03) L 04/07/21 12:56 Hgb 9.8 gm/dl (10.1-14.3) L 04/07/21 12:56 Hct 30.1 % (30.3-42.9) L 04/07/21 12:56 MCV 89 fl (79-97) 04/07/21 12:56 MCH 29 pg (28-32) 04/07/21 12:56 MCHC 33 % (30-34) 04/07/21 12:56 RDW 18.4 % (13.2-15.2) H 04/07/21 12:56 Plt Count 402 K/mm3 (140-440) 04/07/21 12:56 Lymph % (Auto) 18.3 % (13.4-35.0) 04/07/21 12:56 [place] % (Auto) 7.3 % (0.0-7.3) 04/07/21 12:56 Eos % (Auto) 0.3 % (0.0-4.3) 04/07/21 12:56 Baso % (Auto) 0.3 % (0.0-1.8) 04/07/21 12:56 Lymph # (Auto) 1.2 K/mm3 (1.2-5.4) 04/07/21 12:56 [place] # (Auto) 0.5 K/mm3 (0.0-0.8) 04/07/21 12:56 Eos # (Auto) 0.0 K/mm3 (0.0-0.4) 04/07/21 12:56 Baso # (Auto) 0.0 K/mm3 (0.0-0.1) 04/07/21 12:56 Seg Neutrophils % 73.8 % (40.0-70.0) H 04/07/21 12:56 Seg Neutrophils # 4.7 K/mm3 (1.8-7.7) 04/07/21 12:56 Sodium 131 mmol/L (137-145) L 04/07/21 12:56 Potassium 3.6 mmol/L (3.6-5.0) 04/07/21 12:56 Chloride 97.3 mmol/L (98-107) L 04/07/21 12:56 Carbon Dioxide 21 mmol/L (22-30) L 04/07/21 12:56 Anion Gap 16 mmol/L 04/07/21 12:56 BUN 9 mg/dL (7-17) 04/07/21 12:56 Creatinine 0.7 mg/dL (0.6-1.2) 04/07/21 12:56 Estimated GFR > 60 ml/min 04/07/21 12:56 BUN/Creatinine Ratio 13 % 04/07/21 12:56 Glucose 181 mg/dL (65-100) H 04/07/21 12:56 POC Glucose 90 mg/dL (70-105) 04/06/21 21:28 Calcium 8.2 mg/dL (8.4-10.2) L 04/07/21 12:56 Total Bilirubin 0.20 mg/dL (0.1-1.2) 04/07/21 12:56 AST 23 units/L (5-40) 04/07/21 12:56 ALT 21 units/L (7-56) 04/07/21 12:56 Alkaline Phosphatase 334 units/L (35-129) H 04/07/21 12:56 Total Protein 5.3 g/dL (6.3-8.2) L 04/07/21 12:56 Albumin 2.5 g/dL (3.9-5) L 04/07/21 12:56 Albumin/Globulin Ratio 0.9 % 04/07/21 12:56 Last Vital Signs Temp 98.0 F 04/09/21 20:05 Pulse 107 H 04/09/21 20:05 Resp 20 04/09/21 20:05 BP 144/72 04/09/21 20:05 Pulse Ox 100 04/09/21 20:05
[2021-04-10] MEDS: ENOXAPARIN 40 MG/0.4 ML INJ SUB-Q SCH (09:35)
[2021-04-10] MEDS: DOCUSATE SODIUM 100 MG CAP PO SCH (09:36)
[2021-04-10] MEDS: DULoxetine 30 MG CAP PO SCH (09:36)
[2021-04-10] MEDS: QUEtiapine 100 MG TAB PO SCH ×2 (09:36→22:48)
[2021-04-10] MEDS: CHOLECALCIFEROL (VIT D3) 1000 UNIT (25 mcg) TAB PO SCH (09:36)
[2021-04-10] MEDS: THIAMINE 100 MG TAB PO SCH (09:36)
[2021-04-10] MEDS: LACTINEX CHEW TAB PO SCH ×2 (09:36→22:48)
[2021-04-10] MEDS: lamoTRIgine 100 MG TAB PO SCH ×2 (09:36→22:48)
[2021-04-10] MEDS: PANTOPRAZOLE 20 MG TAB PO SCH (09:36)
[2021-04-10] MEDS: traMADol 50 MG TAB PO PRN (17:45)
--- NOTE | 2021-04-11 08:02 | Progress Note ---
Subjective Date of service: 04/11/21 Principal diagnosis: Bipolar disorder Subjective Comment: Per Psych Nurse:Today the patient behavior has been labile. She was calmer this morning and her thoughts were clearer. This afternoon she has yelled out all afternoon stating "please help me", even when staff was in the process of helping her. She is resistant with care. Her appetite is improving and she is eating around 50% of her meals with snacks in between. She is medication comp liant. She denies si/hi/ah/vh but is observed talking to someone not visible. This afternoon patient requested to lay down. Staff assisted her to her room. While pushing the recliner through the door the patient was instructed to place her arms and hands in her lap to keep them safe. Patient complied with request. Just as the chair moved through the door the patient moved her hand to the arm rest and injured two fingers on the left hand. Patient refused care. Staff asked her to allow us to put ice on her fingers to help with swelling. She said no. She was given tramadol for pain. . Psych Progress HPI Patient appears very confused this AM, patient says she has money to give me so I can discharge her home, patient expressing random conversation and tangential responses. Reason for continuing inpatient treatment: Per hector, Memory issues s/p Anesthesia, discussed with brother patient may benefit from memory program, will start planning discharge from psychiatric standpoint Review of Symptoms: Constitutional: Negative for weight loss ENT: Negative for stridor Respiratory: Negative for cough or hemoptysis All other systems reviewed and are negative MENTAL STATUS EXAMINATION General Appearance and Behavior: Age appropriate, good hygiene, wearing appropriate clothes, poor eye contact, uncooperative with questioning. Cooperation: disengaged Psychomotor Behavior: Psychomotor agitation Mood: n/a Affect and affective range: euthymic, euphoric Thought Process: Illogical, echolalial Thought Content: delusional Speech: pressured, loud volume at times Intellectual Functioning: Average Suicidal Ideation: n/a Homicidal Ideation: n/a Impulse Control: Impaired Insight and Judgment: Limited insight and judgment Memory: Short-term memory impaired Attention: Divided attention impaired Orientation: Alert, Treatment Plan Will start patient on rounder and backer Invega and start remeron QHS for sleep Patient admitted for inpatient psychiatric evaluation, medication adjustment and close monitoring The patient's behavior, mood, sleep and appetite will be closely monitored. Patient enrolled in individual and group therapeutic sessions and encouraged to attend. Patient provided with a safe and structured environment. Patient's physical health needs will be addressed by the Hospitalist. Hospitalist Consulted Labs including CBC, CMP, Lipid profile and Hemoglobin A1C levels ordered for baseline reference Social Assessment will be completed and the Relay Adjuster will work with patient and family to ensure a suitable and safe disposition Medication adjustment will be made as clinically indicated Usual Wellness Orthodox/Preservation: - Start Trazodone 50 mg po QHS & 50 mg po QHS PRN between 10 PM & 2 AM for insomnia - Start Melatonin 5 mg po QHS to promote circadian rhythm - Start [place]-3 for brain health, reduce impulsivity, and as adjunctive treatment for mood disorder, continue upon discharge given overall benefits. - Start B1 prophylaxis with 200 mg po for 5 days The patient agreed on the treatment plan, understood the risk, benefit, alternative treatment, potential consequence of no treatment, and gave informed consent. Initial Certification Inpatient psych services: I certify that the inpatient psychiatric services are required for treatment that could reasonably be expected to improve the patient's condition. Estimated days: 5 Post hospital care: primary care provider, psychiatric provider Medications and Allergies Allergies Allergy/AdvReac Type Severity Reaction Status Date / Time lithium AdvReac Unknown Unverified 04/06/21 17:18 Home Medications Medication Instructions Recorded Confirmed Last Taken Type Amoxicillin [Trimox CAP] 1,000 mg PO BID 04/07/21 04/07/21 Unknown History Cholecalciferol Vit D3 [Vitamin D3 1,000 units PO DAILY 04/07/21 04/07/21 Unknown History 1,000 UNIT TAB] DULoxetine [Cymbalta] 60 mg PO QDAY 04/07/21 04/07/21 Unknown History Docusate Sodium [Colace CAP] 100 mg PO DAILY 04/07/21 04/07/21 Unknown History Enoxaparin 40 mg SUB-Q DAILY 04/07/21 04/07/21 Unknown History Lactobacillus Acidophilus 2 cap PO BID 04/07/21 04/07/21 Unknown History [Acidophilus Lactobacilli] Omeprazole 20 mg PO DAILY 04/07/21 04/07/21 Unknown History Oxycodone HCl [oxyCODONE] 10 mg PO Q6HR PRN 04/07/21 04/07/21 Unknown History QUEtiapine [SEROquel] 25 mg PO Q6HR PRN 04/07/21 04/07/21 Unknown History Quetiapine Fumarate [SEROquel] 300 mg PO BID 04/07/21 04/07/21 Unknown History Thiamine [Vitamin B-1] 100 mg PO DAILY 04/07/21 04/07/21 Unknown History bisacodyL [Dulcolax tab] 10 mg PO DAILY PRN 04/07/21 04/07/21 Unknown History lamoTRIgine [LaMICtal] 100 mg PO BID 04/07/21 04/07/21 Unknown History traMADoL [Ultram 50 MG tab] 50 mg PO Q12HR PRN 04/07/21 04/07/21 Unknown History Active Meds: Active Medications Bisacodyl (Bisacodyl 5 Mg Tab) 10 mg PO DAILY PRN PRN Reason: Constipation Cholecalciferol (Cholecalciferol (Vit D3) 1000 Unit (25 Mcg) Tab) 1,000 unit PO DAILY [facility] Last Admin: 04/10/21 09:36 Dose: 1,000 unit Documented by: Docusate Sodium (Docusate Sodium 100 Mg Cap) 100 mg PO DAILY [facility] Last Admin: 04/10/21 09:36 Dose: 100 mg Documented by: Duloxetine HCl (Duloxetine 30 Mg Cap) 60 mg PO QDAY [facility] Last Admin: 04/10/21 09:36 Dose: 60 mg Documented by: Enoxaparin Sodium (Enoxaparin 40 Mg/0.4 Ml Inj) 40 mg SUB-Q DAILY [facility]; Protocol Last Admin: 04/10/21 09:35 Dose: 40 mg Documented by: Lactobacillus Acidophilus (Lactinex Chew Tab) 2 each PO BID [facility] Last Admin: 04/10/21 22:48 Dose: 2 each Documented by: Lamotrigine (Lamotrigine 100 Mg Tab) 100 mg PO BID [facility] Last Admin: 04/10/21 22:48 Dose: 100 mg Documented by: Oxycodone HCl (Oxycodone 5 Mg Tab) 10 mg PO Q6H PRN PRN Reason: Pain, Moderate (4-6) Pantoprazole Sodium (Pantoprazole 20 Mg Tab) 20 mg PO QDAY [facility] Last Admin: 04/10/21 09:36 Dose: 20 mg Documented by: Quetiapine Fumarate (Quetiapine 100 Mg Tab) 300 mg PO BID [facility] Last Admin: 04/10/21 22:48 Dose: 300 mg Documented by: Thiamine HCl (Thiamine 100 Mg Tab) 100 mg PO DAILY [facility] Last Admin: 04/10/21 09:36 Dose: 100 mg Documented by: Tramadol HCl (Tramadol 50 Mg Tab) 50 mg PO Q12HR PRN PRN Reason: Pain, Moderate (4-6) Last Admin: 04/10/21 17:45 Dose: 50 mg Documented by: Results - Results Labs/Vitals: Laboratory Last Values WBC 6.3 K/mm3 (4.5-11.0) 04/07/21 12:56 RBC 3.39 M/mm3 (3.65-5.03) L 04/07/21 12:56 Hgb 9.8 gm/dl (10.1-14.3) L 04/07/21 12:56 Hct 30.1 % (30.3-42.9) L 04/07/21 12:56 MCV 89 fl (79-97) 04/07/21 12:56 MCH 29 pg (28-32) 04/07/21 12:56 MCHC 33 % (30-34) 04/07/21 12:56 RDW 18.4 % (13.2-15.2) H 04/07/21 12:56 Plt Count 402 K/mm3 (140-440) 04/07/21 12:56 Lymph % (Auto) 18.3 % (13.4-35.0) 04/07/21 12:56 [place] % (Auto) 7.3 % (0.0-7.3) 04/07/21 12:56 Eos % (Auto) 0.3 % (0.0-4.3) 04/07/21 12:56 Baso % (Auto) 0.3 % (0.0-1.8) 04/07/21 12:56 Lymph # (Auto) 1.2 K/mm3 (1.2-5.4) 04/07/21 12:56 [place] # (Auto) 0.5 K/mm3 (0.0-0.8) 04/07/21 12:56 Eos # (Auto) 0.0 K/mm3 (0.0-0.4) 04/07/21 12:56 Baso # (Auto) 0.0 K/mm3 (0.0-0.1) 04/07/21 12:56 Seg Neutrophils % 73.8 % (40.0-70.0) H 04/07/21 12:56 Seg Neutrophils # 4.7 K/mm3 (1.8-7.7) 04/07/21 12:56 Sodium 131 mmol/L (137-145) L 04/07/21 12:56 Potassium 3.6 mmol/L (3.6-5.0) 04/07/21 12:56 Chloride 97.3 mmol/L (98-107) L 04/07/21 12:56 Carbon Dioxide 21 mmol/L (22-30) L 04/07/21 12:56 Anion Gap 16 mmol/L 04/07/21 12:56 BUN 9 mg/dL (7-17) 04/07/21 12:56 Creatinine 0.7 mg/dL (0.6-1.2) 04/07/21 12:56 Estimated GFR > 60 ml/min 04/07/21 12:56 BUN/Creatinine Ratio 13 % 04/07/21 12:56 Glucose 181 mg/dL (65-100) H 04/07/21 12:56 POC Glucose 90 mg/dL (70-105) 04/06/21 21:28 Calcium 8.2 mg/dL (8.4-10.2) L 04/07/21 12:56 Total Bilirubin 0.20 mg/dL (0.1-1.2) 04/07/21 12:56 AST 23 units/L (5-40) 04/07/21 12:56 ALT 21 units/L (7-56) 04/07/21 12:56 Alkaline Phosphatase 334 units/L (35-129) H 04/07/21 12:56 Total Protein 5.3 g/dL (6.3-8.2) L 04/07/21 12:56 Albumin 2.5 g/dL (3.9-5) L 04/07/21 12:56 Albumin/Globulin Ratio 0.9 % 04/07/21 12:56 Last Vital Signs Temp 98.1 F 04/10/21 19:42 Pulse 103 H 04/10/21 19:42 Resp 16 04/10/21 19:42 BP 116/65 04/10/21 19:42 Pulse Ox 98 04/10/21 19:42
[2021-04-11] MEDS ORDERED: PALIPERIDONE PALMITATE 234 MG/1.5 ML SYRINGE IM NR (08:42)
[2021-04-11] MEDS: DULoxetine 30 MG CAP PO SCH (12:28)
[2021-04-11] MEDS: PANTOPRAZOLE 20 MG TAB PO SCH (12:29)
[2021-04-11] MEDS: ENOXAPARIN 40 MG/0.4 ML INJ SUB-Q SCH (12:30)
[2021-04-11] MEDS: DOCUSATE SODIUM 100 MG CAP PO SCH (12:31)
[2021-04-11] MEDS: lamoTRIgine 100 MG TAB PO SCH ×2 (12:32→21:43)
[2021-04-11] MEDS: THIAMINE 100 MG TAB PO SCH (12:32)
[2021-04-11] MEDS: CHOLECALCIFEROL (VIT D3) 1000 UNIT (25 mcg) TAB PO SCH (12:33)
[2021-04-11] MEDS: LACTINEX CHEW TAB PO SCH ×2 (19:29→21:43)
[2021-04-11] MEDS: MIRTAZAPINE 15 MG TAB PO SCH (21:43)
--- NOTE | 2021-04-12 08:01 | Progress Note ---
Subjective Date of service: 04/12/21 Principal diagnosis: Bipolar disorder Subjective Comment: Per Psych Nurse:pt spent last evening in activity room, pt is medication compliant, poor appetite, labile, attention seeking, demanding, and talkative, pt woke up at 0415, pt has been awake hallucinating, loudly calling on people that are not there, pt is very difficult to redirect, slept for approximately 4hrs plus, no distress noted, will continue to monitor for safety. Psych Progress HPI Patient does not remember me from prior cardiac, claims she has a short memory. Patient kindly requested for assistance in a low to voice, which is different from a previous tone of yelling. She asked about what the activities they will be doing today Reason for continuing inpatient treatment: Per brother, Memory issues s/p Anesthesia, discussed with brother patient may benefit from memory program. Patient to be discharged tomorrow Review of Symptoms: Constitutional: Negative for weight loss ENT: Negative for stridor Respiratory: Negative for cough or hemoptysis All other systems reviewed and are negative MENTAL STATUS EXAMINATION General Appearance and Behavior: Age appropriate, good hygiene, wearing appropriate clothes, poor eye contact, uncooperative with questioning. Cooperation: Partially withdrawn Psychomotor Behavior: Psychomotor normal Mood: Good Affect and affective range: Congruent with mood Thought Process: Illogical, echolalial Thought Content: delusional Speech: Normal rate and volume Intellectual Functioning: Average Suicidal Ideation: n/a Homicidal Ideation: n/a Impulse Control: Impaired Insight and Judgment: Limited insight and judgment Memory: Short-term memory impaired Attention: Divided attention impaired Orientation: Alert, Treatment Plan Will start patient on intermediate designer Invega and start remeron QHS for sleep Patient admitted for inpatient psychiatric evaluation, medication adjustment and close monitoring The patient's behavior, mood, sleep and appetite will be closely monitored. Patient enrolled in individual and group therapeutic sessions and encouraged to attend. Patient provided with a safe and structured environment. Patient's physical health needs will be addressed by the Hospitalist. Hospitalist Consulted Labs including CBC, CMP, Lipid profile and Hemoglobin A1C levels ordered for baseline reference Social Assessment will be completed and the Tool Dresser will work with patient and family to ensure a suitable and safe disposition Medication adjustment will be made as clinically indicated Usual Wellness Jainism/Preservation: - Start Trazodone 50 mg po QHS & 50 mg po QHS PRN between 10 PM & 2 AM for insomnia - Start Melatonin 5 mg po QHS to promote circadian rhythm - Start [place]-3 for brain health, reduce impulsivity, and as adjunctive treatment for mood disorder, continue upon discharge given overall benefits. - Start B1 prophylaxis with 200 mg po for 5 days The patient agreed on the treatment plan, understood the risk, benefit, alternative treatment, potential consequence of no treatment, and gave informed consent. Initial Certification Inpatient psych services: I certify that the inpatient psychiatric services are required for treatment that could reasonably be expected to improve the patient's condition. Estimated days: 2 Post hospital care: primary care provider, psychiatric provider Medications and Allergies Allergies Allergy/AdvReac Type Severity Reaction Status Date / Time lithium AdvReac Unknown Unverified 04/06/21 17:18 Home Medications Medication Instructions Recorded Confirmed Last Taken Type Amoxicillin [Trimox CAP] 1,000 mg PO BID 04/07/21 04/07/21 Unknown History Cholecalciferol Vit D3 [Vitamin D3 1,000 units PO DAILY 04/07/21 04/07/21 Unknown History 1,000 UNIT TAB] DULoxetine [Cymbalta] 60 mg PO QDAY 04/07/21 04/07/21 Unknown History Docusate Sodium [Colace CAP] 100 mg PO DAILY 04/07/21 04/07/21 Unknown History Enoxaparin 40 mg SUB-Q DAILY 04/07/21 04/07/21 Unknown History Lactobacillus Acidophilus 2 cap PO BID 04/07/21 04/07/21 Unknown History [Acidophilus Lactobacilli] Omeprazole 20 mg PO DAILY 04/07/21 04/07/21 Unknown History Oxycodone HCl [oxyCODONE] 10 mg PO Q6HR PRN 04/07/21 04/07/21 Unknown History QUEtiapine [SEROquel] 25 mg PO Q6HR PRN 04/07/21 04/07/21 Unknown History Quetiapine Fumarate [SEROquel] 300 mg PO BID 04/07/21 04/07/21 Unknown History Thiamine [Vitamin B-1] 100 mg PO DAILY 04/07/21 04/07/21 Unknown History bisacodyL [Dulcolax tab] 10 mg PO DAILY PRN 04/07/21 04/07/21 Unknown History lamoTRIgine [LaMICtal] 100 mg PO BID 04/07/21 04/07/21 Unknown History traMADoL [Ultram 50 MG tab] 50 mg PO Q12HR PRN 04/07/21 04/07/21 Unknown History Active Meds: Active Medications Bisacodyl (Bisacodyl 5 Mg Tab) 10 mg PO DAILY PRN PRN Reason: Constipation Cholecalciferol (Cholecalciferol (Vit D3) 1000 Unit (25 Mcg) Tab) 1,000 unit PO DAILY [facility] Last Admin: 04/11/21 12:33 Dose: 1,000 unit Documented by: Docusate Sodium (Docusate Sodium 100 Mg Cap) 100 mg PO DAILY [facility] Last Admin: 04/11/21 12:31 Dose: 100 mg Documented by: Duloxetine HCl (Duloxetine 30 Mg Cap) 60 mg PO QDAY [facility] Last Admin: 04/11/21 12:28 Dose: 60 mg Documented by: Enoxaparin Sodium (Enoxaparin 40 Mg/0.4 Ml Inj) 40 mg SUB-Q DAILY [facility]; Protocol Last Admin: 04/11/21 12:30 Dose: 40 mg Documented by: Lactobacillus Acidophilus (Lactinex Chew Tab) 2 each PO BID [facility] Last Admin: 04/11/21 21:43 Dose: 2 each Documented by: Lamotrigine (Lamotrigine 100 Mg Tab) 100 mg PO BID [facility] Last Admin: 04/11/21 21:43 Dose: 100 mg Documented by: Mirtazapine (Mirtazapine 15 Mg Tab) 15 mg PO QHS [facility] Last Admin: 04/11/21 21:43 Dose: 15 mg Documented by: Oxycodone HCl (Oxycodone 5 Mg Tab) 10 mg PO Q6H PRN PRN Reason: Pain, Moderate (4-6) Last Admin: 04/11/21 22:26 Dose: 10 mg Documented by: Pantoprazole Sodium (Pantoprazole 20 Mg Tab) 20 mg PO QDAY [facility] Last Admin: 04/11/21 12:29 Dose: 20 mg Documented by: Quetiapine Fumarate (Quetiapine 100 Mg Tab) 300 mg PO QHS [facility] Thiamine HCl (Thiamine 100 Mg Tab) 100 mg PO DAILY [facility] Last Admin: 04/11/21 12:32 Dose: 100 mg Documented by: Results - Results Labs/Vitals: Laboratory Last Values WBC 6.3 K/mm3 (4.5-11.0) 04/07/21 12:56 RBC 3.39 M/mm3 (3.65-5.03) L 04/07/21 12:56 Hgb 9.8 gm/dl (10.1-14.3) L 04/07/21 12:56 Hct 30.1 % (30.3-42.9) L 04/07/21 12:56 MCV 89 fl (79-97) 04/07/21 12:56 MCH 29 pg (28-32) 04/07/21 12:56 MCHC 33 % (30-34) 04/07/21 12:56 RDW 18.4 % (13.2-15.2) H 04/07/21 12:56 Plt Count 402 K/mm3 (140-440) 04/07/21 12:56 Lymph % (Auto) 18.3 % (13.4-35.0) 04/07/21 12:56 [place] % (Auto) 7.3 % (0.0-7.3) 04/07/21 12:56 Eos % (Auto) 0.3 % (0.0-4.3) 04/07/21 12:56 Baso % (Auto) 0.3 % (0.0-1.8) 04/07/21 12:56 Lymph # (Auto) 1.2 K/mm3 (1.2-5.4) 04/07/21 12:56 [place] # (Auto) 0.5 K/mm3 (0.0-0.8) 04/07/21 12:56 Eos # (Auto) 0.0 K/mm3 (0.0-0.4) 04/07/21 12:56 Baso # (Auto) 0.0 K/mm3 (0.0-0.1) 04/07/21 12:56 Seg Neutrophils % 73.8 % (40.0-70.0) H 04/07/21 12:56 Seg Neutrophils # 4.7 K/mm3 (1.8-7.7) 04/07/21 12:56 Sodium 131 mmol/L (137-145) L 04/07/21 12:56 Potassium 3.6 mmol/L (3.6-5.0) 04/07/21 12:56 Chloride 97.3 mmol/L (98-107) L 04/07/21 12:56 Carbon Dioxide 21 mmol/L (22-30) L 04/07/21 12:56 Anion Gap 16 mmol/L 04/07/21 12:56 BUN 9 mg/dL (7-17) 04/07/21 12:56 Creatinine 0.7 mg/dL (0.6-1.2) 04/07/21 12:56 Estimated GFR > 60 ml/min 04/07/21 12:56 BUN/Creatinine Ratio 13 % 04/07/21 12:56 Glucose 181 mg/dL (65-100) H 04/07/21 12:56 POC Glucose 90 mg/dL (70-105) 04/06/21 21:28 Calcium 8.2 mg/dL (8.4-10.2) L 04/07/21 12:56 Total Bilirubin 0.20 mg/dL (0.1-1.2) 04/07/21 12:56 AST 23 units/L (5-40) 04/07/21 12:56 ALT 21 units/L (7-56) 04/07/21 12:56 Alkaline Phosphatase 334 units/L (35-129) H 04/07/21 12:56 Total Protein 5.3 g/dL (6.3-8.2) L 04/07/21 12:56 Albumin 2.5 g/dL (3.9-5) L 04/07/21 12:56 Albumin/Globulin Ratio 0.9 % 04/07/21 12:56 Last Vital Signs Temp 98.4 F 04/11/21 22:00 Pulse 107 H 04/11/21 22:00 Resp 18 04/11/21 22:00 BP 105/57 04/11/21 22:00 Pulse Ox 99 04/11/21 22:00
[2021-04-12] MEDS: lamoTRIgine 100 MG TAB PO SCH ×2 (10:04→22:37)
[2021-04-12] MEDS: THIAMINE 100 MG TAB PO SCH (10:05)
[2021-04-12] MEDS: DOCUSATE SODIUM 100 MG CAP PO SCH (10:05)
[2021-04-12] MEDS: LACTINEX CHEW TAB PO SCH ×2 (10:06→22:35)
[2021-04-12] MEDS: DULoxetine 30 MG CAP PO SCH (10:06)
[2021-04-12] MEDS: CHOLECALCIFEROL (VIT D3) 1000 UNIT (25 mcg) TAB PO SCH (10:07)
[2021-04-12] MEDS: PANTOPRAZOLE 20 MG TAB PO SCH (10:09)
[2021-04-12] MEDS: ENOXAPARIN 40 MG/0.4 ML INJ SUB-Q SCH (10:22)
[2021-04-12] MEDS ORDERED: QUEtiapine 100 MG TAB PO SCH (22:00)
[2021-04-12] MEDS: MIRTAZAPINE 15 MG TAB PO SCH (22:37)
--- NOTE | 2021-04-13 07:54 | Progress Note ---
Subjective Date of service: 04/13/21 Principal diagnosis: Bipolar disorder Subjective Comment: Per Psych Nurse:Pt receieved in the day room sitting quietly. Reduced verbal outburst and cursing observed. Compliant with medication and treatment regimens. No acute distress observed and none reported. Will continue to monitor. Psych Progress HPI Saw patient in [facility] this AM, she reports doing fine this AM, says she is at [facility] for dementia. Informed pt she is her ebecause of confusion and behv health issues and we here to make her feel better. Patient states thats fine, she can live with that. Per Collateral: I spoke with patients Brother again today, wanted me to call pts PCP. I spoke with Dr. Keyes, she says patient did became confused after her procedure back in January, multiple work up was done to determine cause of confusion but were negative, then pt bipolar medications were significantly reduced due to polypharmacy concerns even though her psychiatrist had instructed them nt to because she has been on same regime for at least 15 years but still they did and she just got worse by they day. Reason for continuing inpatient treatment: Plan to revert pt to prior dosiing psych rx she has been on for years and observe for dose response for atleast 3-4 more days. Review of Symptoms: Constitutional: Negative for weight loss ENT: Negative for stridor Respiratory: Negative for cough or hemoptysis All other systems reviewed and are negative MENTAL STATUS EXAMINATION General Appearance and Behavior: Age appropriate, good hygiene, wearing appropriate clothes, poor eye contact, uncooperative with questioning. Cooperation: Partially withdrawn Psychomotor Behavior: Psychomotor normal Mood: Good Affect and affective range: Congruent with mood Thought Process: Illogical, Thought Content: delusional Speech: Normal rate and volume Intellectual Functioning: Average Suicidal Ideation: denies Homicidal Ideation:denies Impulse Control: Impaired Insight and Judgment: improving insight and judgment Memory: Short-term memory impaired Attention: Divided attention impaired Orientation: Alert, oriented Treatment Plan Assessment and Plan (1) Bipolar disorder with psychotic features Current Visit: Yes Status: Acute I spoke with patients Brother again today, wanted me to call pts PCP. I spoke with Dr. Keyes, she says patient did became confused after her procedure back in January, multiple work up was done to determine cause of confusion but were negative, then pt bipolar medications were significantly reduced due to polypharmacy concerns even though her psychiatrist had instructed them nt to because she has been on same regime for at least 15 years but still they did and she just got worse by they day. Will resume home medications. Patient admitted for inpatient psychiatric evaluation, medication adjustment and close monitoring The patient's behavior, mood, sleep and appetite will be closely monitored. Patient enrolled in individual and group therapeutic sessions and encouraged to attend. Patient provided with a safe and structured environment. Patient's physical health needs will be addressed by the Hospitalist. Hospitalist Consulted Labs including CBC, CMP, Lipid profile and Hemoglobin A1C levels ordered for baseline reference Social Assessment will be completed and the Founder Chairman And Chief Creative Officer will work with patient and family to ensure a suitable and safe disposition Medication adjustment will be made as clinically indicated Usual Wellness [facility]: - Start Trazodone 50 mg po QHS & 50 mg po QHS PRN between 10 PM & 2 AM for insomnia - Start Melatonin 5 mg po QHS to promote circadian rhythm - Start [place]-3 for brain health, reduce impulsivity, and as adjunctive treatment for mood disorder, continue upon discharge given overall benefits. - Start B1 prophylaxis with 200 mg po for 5 days The patient agreed on the treatment plan, understood the risk, benefit, alternative treatment, potential consequence of no treatment, and gave informed consent. Initial Certification Inpatient psych services: I certify that the inpatient psychiatric services are required for treatment that could reasonably be expected to improve the patient's condition. Estimated days: 2 Post hospital care: primary care provider, psychiatric provider Medications and Allergies Allergies Allergy/AdvReac Type Severity Reaction Status Date / Time lithium AdvReac Unknown Unverified 04/06/21 17:18 Home Medications Medication Instructions Recorded Confirmed Last Taken Type Amoxicillin [Trimox CAP] 1,000 mg PO BID 04/07/21 04/07/21 Unknown History Cholecalciferol Vit D3 [Vitamin D3 1,000 units PO DAILY 04/07/21 04/07/21 Unknown History 1,000 UNIT TAB] DULoxetine [Cymbalta] 60 mg PO QDAY 04/07/21 04/07/21 Unknown History Docusate Sodium [Colace CAP] 100 mg PO DAILY 04/07/21 04/07/21 Unknown History Enoxaparin 40 mg SUB-Q DAILY 04/07/21 04/07/21 Unknown History Lactobacillus Acidophilus 2 cap PO BID 04/07/21 04/07/21 Unknown History [Acidophilus Lactobacilli] Omeprazole 20 mg PO DAILY 04/07/21 04/07/21 Unknown History Oxycodone HCl [oxyCODONE] 10 mg PO Q6HR PRN 04/07/21 04/07/21 Unknown History QUEtiapine [SEROquel] 25 mg PO Q6HR PRN 04/07/21 04/07/21 Unknown History Quetiapine Fumarate [SEROquel] 300 mg PO BID 04/07/21 04/07/21 Unknown History Thiamine [Vitamin B-1] 100 mg PO DAILY 04/07/21 04/07/21 Unknown History bisacodyL [Dulcolax tab] 10 mg PO DAILY PRN 04/07/21 04/07/21 Unknown History lamoTRIgine [LaMICtal] 100 mg PO BID 04/07/21 04/07/21 Unknown History traMADoL [Ultram 50 MG tab] 50 mg PO Q12HR PRN 04/07/21 04/07/21 Unknown History Active Meds: Active Medications Bisacodyl (Bisacodyl 5 Mg Tab) 10 mg PO DAILY PRN PRN Reason: Constipation Cholecalciferol (Cholecalciferol (Vit D3) 1000 Unit (25 Mcg) Tab) 1,000 unit PO DAILY [facility] Last Admin: 04/12/21 10:07 Dose: 1,000 unit Documented by: Docusate Sodium (Docusate Sodium 100 Mg Cap) 100 mg PO DAILY [facility] Last Admin: 04/12/21 10:05 Dose: 100 mg Documented by: Duloxetine HCl (Duloxetine 30 Mg Cap) 60 mg PO QDAY [facility] Last Admin: 04/12/21 10:06 Dose: 60 mg Documented by: Enoxaparin Sodium (Enoxaparin 40 Mg/0.4 Ml Inj) 40 mg SUB-Q DAILY [facility]; Protocol Last Admin: 04/12/21 10:22 Dose: 40 mg Documented by: Lactobacillus Acidophilus (Lactinex Chew Tab) 2 each PO BID [facility] Last Admin: 04/12/21 22:35 Dose: 2 each Documented by: Lamotrigine (Lamotrigine 100 Mg Tab) 100 mg PO BID [facility] Last Admin: 04/12/21 22:37 Dose: 100 mg Documented by: Mirtazapine (Mirtazapine 15 Mg Tab) 15 mg PO QHS [facility] Last Admin: 04/12/21 22:37 Dose: 15 mg Documented by: Oxycodone HCl (Oxycodone 5 Mg Tab) 10 mg PO Q6H PRN PRN Reason: Pain, Moderate (4-6) Last Admin: 04/11/21 22:26 Dose: 10 mg Documented by: Pantoprazole Sodium (Pantoprazole 20 Mg Tab) 20 mg PO QDAY [facility] Last Admin: 04/12/21 10:09 Dose: 20 mg Documented by: Quetiapine Fumarate (Quetiapine 100 Mg Tab) 300 mg PO QHS [facility] Last Admin: 04/12/21 22:35 Dose: 300 mg Documented by: Thiamine HCl (Thiamine 100 Mg Tab) 100 mg PO DAILY [facility] Last Admin: 04/12/21 10:05 Dose: 100 mg Documented by: Results - Results Labs/Vitals: Laboratory Last Values WBC 6.3 K/mm3 (4.5-11.0) 04/07/21 12:56 RBC 3.39 M/mm3 (3.65-5.03) L 04/07/21 12:56 Hgb 9.8 gm/dl (10.1-14.3) L 04/07/21 12:56 Hct 30.1 % (30.3-42.9) L 04/07/21 12:56 MCV 89 fl (79-97) 04/07/21 12:56 MCH 29 pg (28-32) 04/07/21 12:56 MCHC 33 % (30-34) 04/07/21 12:56 RDW 18.4 % (13.2-15.2) H 04/07/21 12:56 Plt Count 402 K/mm3 (140-440) 04/07/21 12:56 Lymph % (Auto) 18.3 % (13.4-35.0) 04/07/21 12:56 [place] % (Auto) 7.3 % (0.0-7.3) 04/07/21 12:56 Eos % (Auto) 0.3 % (0.0-4.3) 04/07/21 12:56 Baso % (Auto) 0.3 % (0.0-1.8) 04/07/21 12:56 Lymph # (Auto) 1.2 K/mm3 (1.2-5.4) 04/07/21 12:56 [place] # (Auto) 0.5 K/mm3 (0.0-0.8) 04/07/21 12:56 Eos # (Auto) 0.0 K/mm3 (0.0-0.4) 04/07/21 12:56 Baso # (Auto) 0.0 K/mm3 (0.0-0.1) 04/07/21 12:56 Seg Neutrophils % 73.8 % (40.0-70.0) H 04/07/21 12:56 Seg Neutrophils # 4.7 K/mm3 (1.8-7.7) 04/07/21 12:56 Sodium 131 mmol/L (137-145) L 04/07/21 12:56 Potassium 3.6 mmol/L (3.6-5.0) 04/07/21 12:56 Chloride 97.3 mmol/L (98-107) L 04/07/21 12:56 Carbon Dioxide 21 mmol/L (22-30) L 04/07/21 12:56 Anion Gap 16 mmol/L 04/07/21 12:56 BUN 9 mg/dL (7-17) 04/07/21 12:56 Creatinine 0.7 mg/dL (0.6-1.2) 04/07/21 12:56 Estimated GFR > 60 ml/min 04/07/21 12:56 BUN/Creatinine Ratio 13 % 04/07/21 12:56 Glucose 181 mg/dL (65-100) H 04/07/21 12:56 POC Glucose 90 mg/dL (70-105) 04/06/21 21:28 Calcium 8.2 mg/dL (8.4-10.2) L 04/07/21 12:56 Total Bilirubin 0.20 mg/dL (0.1-1.2) 04/07/21 12:56 AST 23 units/L (5-40) 04/07/21 12:56 ALT 21 units/L (7-56) 04/07/21 12:56 Alkaline Phosphatase 334 units/L (35-129) H 04/07/21 12:56 Total Protein 5.3 g/dL (6.3-8.2) L 04/07/21 12:56 Albumin 2.5 g/dL (3.9-5) L 04/07/21 12:56 Albumin/Globulin Ratio 0.9 % 04/07/21 12:56 Last Vital Signs Temp 98.5 F 04/12/21 21:00 Pulse 107 H 04/12/21 21:00 Resp 16 04/12/21 21:00 BP 139/74 04/12/21 21:00 Pulse Ox 100 04/12/21 21:00
[2021-04-13] MEDS ORDERED: oxyCODONE 5 MG TAB PO PRN (10:00)
[2021-04-13] MEDS ORDERED: QUEtiapine 200 MG TAB PO SCH (10:00)
[2021-04-13] MEDS ORDERED: QUEtiapine 100 MG TAB PO SCH ×3 (10:00)
[2021-04-13] MEDS: THIAMINE 100 MG TAB PO SCH (10:27)
[2021-04-13] MEDS: DULoxetine 30 MG CAP PO SCH ×2 (10:28→21:29)
[2021-04-13] MEDS: DOCUSATE SODIUM 100 MG CAP PO SCH (10:28)
[2021-04-13] MEDS: PANTOPRAZOLE 20 MG TAB PO SCH (10:28)
[2021-04-13] MEDS: CHOLECALCIFEROL (VIT D3) 1000 UNIT (25 mcg) TAB PO SCH (10:28)
[2021-04-13] MEDS: LACTINEX CHEW TAB PO SCH ×2 (10:28→21:29)
[2021-04-13] MEDS: lamoTRIgine 100 MG TAB PO SCH ×3 (10:28→20:41)
[2021-04-13] MEDS: ENOXAPARIN 40 MG/0.4 ML INJ SUB-Q SCH (10:29)
[2021-04-13] MEDS: QUEtiapine 100 MG TAB PO SCH ×4 (10:35→21:28)
--- NOTE | 2021-04-14 08:08 | Progress Note ---
Subjective Date of service: 04/14/21 Principal diagnosis: Bipolar disorder Subjective Comment: Per Psych Nurse:pt has been appropriate, calm, cooperative w/ staff, compliant w/ meds and attentive during groups. pt watched tv in between groups. No abnormal or aggressive behaviors noted. Close monitoring continues. Psych Progress HPI Patient seen screaming this AM, yelling and repetitive was reported to have improved behaviors yesterday. Patient home psych medications restarted after conversation with PCP but appears the previous hospitalist concerns about polypharmacy with home psych meds may be true as she appears worse after home meds restarted. Per Collateral: I spoke with patients Brother again today, wanted me to call pts PCP. I spoke with Dr. Keyes, she says patient did became confused after her procedure back in January, multiple work up was done to determine cause of confusion but were negative, then pt bipolar medications were significantly reduced due to polypharmacy concerns even though her psychiatrist had instructed them nt to because she has been on same regime for at least 15 years but still they did and she just got worse by they day. Reason for continuing inpatient treatment: Plan to revert pt to prior dosing psych rx she has been on for years and observe for dose response for atleast 3-4 more days. Review of Symptoms: Constitutional: Negative for weight loss ENT: Negative for stridor Respiratory: Negative for cough or hemoptysis All other systems reviewed and are negative MENTAL STATUS EXAMINATION General Appearance and Behavior: Age appropriate, good hygiene, wearing appropriate clothes, poor eye contact, uncooperative with questioning. Cooperation: Partially withdrawn Psychomotor Behavior: Psychomotor normal Mood: screaming Affect and affective range: dysthymic Thought Process: Illogical, Thought Content: delusional Speech: Normal rate and volume Intellectual Functioning: fair Suicidal Ideation: denies Homicidal Ideation:denies Impulse Control: Impaired Insight and Judgment: poor insight and judgment Memory: Short-term memory impaired Attention: Divided attention impaired Orientation: Alert, oriented Treatment Plan Assessment and Plan (1) Bipolar disorder with psychotic features Current Visit: Yes Status: Acute I spoke with pt brother ysday, and PCP. I spoke with Dr. Keyes, she says patient did became confused after her procedure back in January, multiple work up was done to determine cause of confusion but were negative, then pt bipolar medications were significantly reduced due to polypharmacy concerns even though her psychiatrist had instructed them nt to because she has been on same regime for at least 15 years but still they did and she just got worse by they day. Will resume home medications. INvega second loading dose tomorrow and discharge Patient admitted for inpatient psychiatric evaluation, medication adjustment and close monitoring The patient's behavior, mood, sleep and appetite will be closely monitored. Patient enrolled in individual and group therapeutic sessions and encouraged to attend. Patient provided with a safe and structured environment. Patient's physical health needs will be addressed by the Hospitalist. Hospitalist Consulted Labs including CBC, CMP, Lipid profile and Hemoglobin A1C levels ordered for baseline reference Social Assessment will be completed and the [place] Operator will work with patient and family to ensure a suitable and safe disposition Medication adjustment will be made as clinically indicated Usual Wellness [facility]: - Start Trazodone 50 mg po QHS & 50 mg po QHS PRN between 10 PM & 2 AM for insomnia - Start Melatonin 5 mg po QHS to promote circadian rhythm - Start [place]-3 for brain health, reduce impulsivity, and as adjunctive treatment for mood disorder, continue upon discharge given overall benefits. - Start B1 prophylaxis with 200 mg po for 5 days The patient agreed on the treatment plan, understood the risk, benefit, alternative treatment, potential consequence of no treatment, and gave informed consent. Initial Certification Inpatient psych services: I certify that the inpatient psychiatric services are required for treatment that could reasonably be expected to improve the patient's condition. Estimated days: 2 Post hospital care: primary care provider, psychiatric provider Medications and Allergies Allergies Allergy/AdvReac Type Severity Reaction Status Date / Time lithium AdvReac Unknown Unverified 04/06/21 17:18 Home Medications Medication Instructions Recorded Confirmed Last Taken Type Amoxicillin [Trimox CAP] 1,000 mg PO BID 04/07/21 04/07/21 Unknown History Cholecalciferol Vit D3 [Vitamin D3 1,000 units PO DAILY 04/07/21 04/07/21 Unknow n History 1,000 UNIT TAB] DULoxetine [Cymbalta] 60 mg PO QDAY 04/07/21 04/07/21 Unknown History Docusate Sodium [Colace CAP] 100 mg PO DAILY 04/07/21 04/07/21 Unknown History Enoxaparin 40 mg SUB-Q DAILY 04/07/21 04/07/21 Unknown History Lactobacillus Acidophilus 2 cap PO BID 04/07/21 04/07/21 Unknown History [Acidophilus Lactobacilli] Omeprazole 20 mg PO DAILY 04/07/21 04/07/21 Unknown History Oxycodone HCl [oxyCODONE] 10 mg PO Q6HR PRN 04/07/21 04/07/21 Unknown History QUEtiapine [SEROquel] 25 mg PO Q6HR PRN 04/07/21 04/07/21 Unknown History Quetiapine Fumarate [SEROquel] 300 mg PO BID 04/07/21 04/07/21 Unknown History Thiamine [Vitamin B-1] 100 mg PO DAILY 04/07/21 04/07/21 Unknown History bisacodyL [Dulcolax tab] 10 mg PO DAILY PRN 04/07/21 04/07/21 Unknown History lamoTRIgine [LaMICtal] 100 mg PO BID 04/07/21 04/07/21 Unknown History traMADoL [Ultram 50 MG tab] 50 mg PO Q12HR PRN 04/07/21 04/07/21 Unknown History Active Meds: Active Medications Bisacodyl (Bisacodyl 5 Mg Tab) 10 mg PO DAILY PRN PRN Reason: Constipation Cholecalciferol (Cholecalciferol (Vit D3) 1000 Unit (25 Mcg) Tab) 1,000 unit PO DAILY [facility] Last Admin: 04/13/21 10:28 Dose: 1,000 unit Documented by: Docusate Sodium (Docusate Sodium 100 Mg Cap) 100 mg PO DAILY [facility] Last Admin: 04/13/21 10:28 Dose: 100 mg Documented by: Duloxetine HCl (Duloxetine 30 Mg Cap) 60 mg PO BID [facility] Last Admin: 04/13/21 21:29 Dose: 60 mg Documented by: Enoxaparin Sodium (Enoxaparin 40 Mg/0.4 Ml Inj) 40 mg SUB-Q DAILY [facility]; Protocol Last Admin: 04/13/21 10:29 Dose: 40 mg Documented by: Lactobacillus Acidophilus (Lactinex Chew Tab) 2 each PO BID [facility] Last Admin: 04/13/21 21:29 Dose: 2 each Documented by: Lamotrigine (Lamotrigine 100 Mg Tab) 100 mg PO TID [facility] Last Admin: 04/13/21 20:41 Dose: 100 mg Documented by: Oxycodone HCl (Oxycodone 5 Mg Tab) 10 mg PO Q12H PRN PRN Reason: Pain, Moderate (4-6) Pantoprazole Sodium (Pantoprazole 20 Mg Tab) 20 mg PO QDAY [facility] Last Admin: 04/13/21 10:28 Dose: 20 mg Documented by: Quetiapine Fumarate (Quetiapine 100 Mg Tab) 250 mg PO QID [facility] Last Admin: 04/13/21 21:28 Dose: 250 mg Documented by: Thiamine HCl (Thiamine 100 Mg Tab) 100 mg PO DAILY [facility] Last Admin: 04/13/21 10:27 Dose: 100 mg Documented by: Results - Results Labs/Vitals: Laboratory Last Values WBC 6.3 K/mm3 (4.5-11.0) 04/07/21 12:56 RBC 3.39 M/mm3 (3.65-5.03) L 04/07/21 12:56 Hgb 9.8 gm/dl (10.1-14.3) L 04/07/21 12:56 Hct 30.1 % (30.3-42.9) L 04/07/21 12:56 MCV 89 fl (79-97) 04/07/21 12:56 MCH 29 pg (28-32) 04/07/21 12:56 MCHC 33 % (30-34) 04/07/21 12:56 RDW 18.4 % (13.2-15.2) H 04/07/21 12:56 Plt Count 402 K/mm3 (140-440) 04/07/21 12:56 Lymph % (Auto) 18.3 % (13.4-35.0) 04/07/21 12:56 [place] % (Auto) 7.3 % (0.0-7.3) 04/07/21 12:56 Eos % (Auto) 0.3 % (0.0-4.3) 04/07/21 12:56 Baso % (Auto) 0.3 % (0.0-1.8) 04/07/21 12:56 Lymph # (Auto) 1.2 K/mm3 (1.2-5.4) 04/07/21 12:56 [place] # (Auto) 0.5 K/mm3 (0.0-0.8) 04/07/21 12:56 Eos # (Auto) 0.0 K/mm3 (0.0-0.4) 04/07/21 12:56 Baso # (Auto) 0.0 K/mm3 (0.0-0.1) 04/07/21 12:56 Seg Neutrophils % 73.8 % (40.0-70.0) H 04/07/21 12:56 Seg Neutrophils # 4.7 K/mm3 (1.8-7.7) 04/07/21 12:56 Sodium 131 mmol/L (137-145) L 04/07/21 12:56 Potassium 3.6 mmol/L (3.6-5.0) 04/07/21 12:56 Chloride 97.3 mmol/L (98-107) L 04/07/21 12:56 Carbon Dioxide 21 mmol/L (22-30) L 04/07/21 12:56 Anion Gap 16 mmol/L 04/07/21 12:56 BUN 9 mg/dL (7-17) 04/07/21 12:56 Creatinine 0.7 mg/dL (0.6-1.2) 04/07/21 12:56 Estimated GFR > 60 ml/min 04/07/21 12:56 BUN/Creatinine Ratio 13 % 04/07/21 12:56 Glucose 181 mg/dL (65-100) H 04/07/21 12:56 POC Glucose 90 mg/dL (70-105) 04/06/21 21:28 Calcium 8.2 mg/dL (8.4-10.2) L 04/07/21 12:56 Total Bilirubin 0.20 mg/dL (0.1-1.2) 04/07/21 12:56 AST 23 units/L (5-40) 04/07/21 12:56 ALT 21 units/L (7-56) 04/07/21 12:56 Alkaline Phosphatase 334 units/L (35-129) H 04/07/21 12:56 Total Protein 5.3 g/dL (6.3-8.2) L 04/07/21 12:56 Albumin 2.5 g/dL (3.9-5) L 04/07/21 12:56 Albumin/Globulin Ratio 0.9 % 04/07/21 12:56 Last Vital Signs Temp 97.8 F 04/13/21 22:00 Pulse 99 H 04/13/21 22:00 Resp 17 04/13/21 22:00 BP 103/66 04/13/21 22:00 Pulse Ox 100 04/12/21 21:00
[2021-04-14] MEDS: DOCUSATE SODIUM 100 MG CAP PO SCH (09:22)
[2021-04-14] MEDS: DULoxetine 30 MG CAP PO SCH ×2 (09:22→22:39)
[2021-04-14] MEDS: PANTOPRAZOLE 20 MG TAB PO SCH (09:23)
[2021-04-14] MEDS: THIAMINE 100 MG TAB PO SCH (09:23)
[2021-04-14] MEDS: LACTINEX CHEW TAB PO SCH ×2 (09:23→22:37)
[2021-04-14] MEDS: lamoTRIgine 100 MG TAB PO SCH ×3 (09:23→22:38)
[2021-04-14] MEDS: QUEtiapine 100 MG TAB PO SCH ×4 (09:23→22:38)
[2021-04-14] MEDS: CHOLECALCIFEROL (VIT D3) 1000 UNIT (25 mcg) TAB PO SCH (09:23)
[2021-04-14] MEDS: ENOXAPARIN 40 MG/0.4 ML INJ SUB-Q SCH (09:24)
[2021-04-15] MEDS: THIAMINE 100 MG TAB PO SCH (09:34)
[2021-04-15] MEDS: LACTINEX CHEW TAB PO SCH ×2 (09:34→21:02)
[2021-04-15] MEDS: DOCUSATE SODIUM 100 MG CAP PO SCH (09:34)
[2021-04-15] MEDS: lamoTRIgine 100 MG TAB PO SCH ×3 (09:34→20:49)
[2021-04-15] MEDS: QUEtiapine 100 MG TAB PO SCH ×3 (09:34→20:50)
[2021-04-15] MEDS: DULoxetine 30 MG CAP PO SCH ×2 (09:34→21:03)
[2021-04-15] MEDS: PANTOPRAZOLE 20 MG TAB PO SCH (09:34)
[2021-04-15] MEDS: CHOLECALCIFEROL (VIT D3) 1000 UNIT (25 mcg) TAB PO SCH (09:34)
[2021-04-15] MEDS: ENOXAPARIN 40 MG/0.4 ML INJ SUB-Q SCH (09:37)
--- NOTE | 2021-04-15 11:08 | Progress Note ---
Subjective Date of service: 04/15/21 Principal diagnosis: Bipolar disorder Subjective Comment: The patient was seen today, she is angry and uncooperative. She ignores me and states "be quiet." She then says "why would I want to talk to you and I don't know you." The patient then refuses to answer any more questions. Review of Symptoms: Unable to assess MENTAL STATUS EXAMINATION General Appearance and Behavior: Age appropriate, good hygiene, wearing appropriate clothes, poor eye contact, uncooperative with questioning. Cooperation: withdrawn, uncooperative Psychomotor Behavior: Psychomotor normal Mood: N/A Assessment and Plan (1) Bipolar disorder with psychotic features Current Visit: Yes Status: Acute Treatment Patient admitted for inpatient psychiatric evaluation, medication adjustment and close monitoring The patient's behavior, mood, sleep and appetite will be closely monitored. Patient enrolled in individual and group therapeutic sessions and encouraged to attend. Patient provided with a safe and structured environment. Patient's physical health needs will be addressed by the Hospitalist. Hospitalist Consulted Labs including CBC, CMP, Lipid profile and Hemoglobin A1C levels ordered for baseline reference Social Assessment will be completed and the Developmental Education Instructor will work with patient and family to ensure a suitable and safe disposition Medication adjustment will be made as clinically indicated Decreased Seroquel 250mg po TID Start Klonopin 0.25mg po BID x 3 days to help the patient calm down Usual Wellness Caodaism/Preservation: - Start Trazodone 50 mg po QHS & 50 mg po QHS PRN between 10 PM & 2 AM for insomnia - Start Melatonin 5 mg po QHS to promote circadian rhythm - Start [place]-3 for brain health, reduce impulsivity, and as adjunctive treatment for mood disorder, continue upon discharge given overall benefits. - Start B1 prophylaxis with 200 mg po for 5 days The patient agreed on the treatment plan, understood the risk, benefit, alternative treatment, potential consequence of no treatment, and gave informed consent. Estimated days: 2 Post hospital care: primary care provider, psychiatric provider Medications and Allergies Allergies Allergy/AdvReac Type Severity Reaction Status Date / Time lithium AdvReac Unknown Unverified 04/06/21 17:18 Home Medications Medication Instructions Recorded Confirmed Last Taken Type Amoxicillin [Trimox CAP] 1,000 mg PO BID 04/07/21 04/07/21 Unknown History Cholecalciferol Vit D3 [Vitamin D3 1,000 units PO DAILY 04/07/21 04/07/21 Unknown History 1,000 UNIT TAB] DULoxetine [Cymbalta] 60 mg PO QDAY 04/07/21 04/07/21 Unknown History Docusate Sodium [Colace CAP] 100 mg PO DAILY 04/07/21 04/07/21 Unknown History Enoxaparin 40 mg SUB-Q DAILY 04/07/21 04/07/21 Unknown History Lactobacillus Acidophilus 2 cap PO BID 04/07/21 04/07/21 Unknown History [Acidophilus Lactobacilli] Omeprazole 20 mg PO DAILY 04/07/21 04/07/21 Unknown History Oxycodone HCl [oxyCODONE] 10 mg PO Q6HR PRN 04/07/21 04/07/21 Unknown History QUEtiapine [SEROquel] 25 mg PO Q6HR PRN 04/07/21 04/07/21 Unknown History Quetiapine Fumarate [SEROquel] 300 mg PO BID 04/07/21 04/07/21 Unknown History Thiamine [Vitamin B-1] 100 mg PO DAILY 04/07/21 04/07/21 Unknown History bisacodyL [Dulcolax tab] 10 mg PO DAILY PRN 04/07/21 04/07/21 Unknown History lamoTRIgine [LaMICtal] 100 mg PO BID 04/07/21 04/07/21 Unknown History traMADoL [Ultram 50 MG tab] 50 mg PO Q12HR PRN 04/07/21 04/07/21 Unknown History Active Meds: Active Medications Bisacodyl (Bisacodyl 5 Mg Tab) 10 mg PO DAILY PRN PRN Reason: Constipation Cholecalciferol (Cholecalciferol (Vit D3) 1000 Unit (25 Mcg) Tab) 1,000 unit PO DAILY [facility] Last Admin: 04/15/21 09:34 Dose: 1,000 unit Documented by: Docusate Sodium (Docusate Sodium 100 Mg Cap) 100 mg PO DAILY [facility] Last Admin: 04/15/21 09:34 Dose: 100 mg Documented by: Duloxetine HCl (Duloxetine 30 Mg Cap) 60 mg PO BID [facility] Last Admin: 04/15/21 09:34 Dose: 60 mg Documented by: Enoxaparin Sodium (Enoxaparin 40 Mg/0.4 Ml Inj) 40 mg SUB-Q DAILY [facility]; Protocol Last Admin: 04/15/21 09:37 Dose: 40 mg Documented by: Lactobacillus Acidophilus (Lactinex Chew Tab) 2 each PO BID [facility] Last Admin: 04/15/21 09:34 Dose: 2 each Documented by: Lamotrigine (Lamotrigine 100 Mg Tab) 100 mg PO TID [facility] Last Admin: 04/15/21 09:34 Dose: 100 mg Documented by: Oxycodone HCl (Oxycodone 5 Mg Tab) 10 mg PO Q12H PRN PRN Reason: Pain, Moderate (4-6) Pantoprazole Sodium (Pantoprazole 20 Mg Tab) 20 mg PO QDAY [facility] Last Admin: 04/15/21 09:34 Dose: 20 mg Documented by: Quetiapine Fumarate (Quetiapine 100 Mg Tab) 250 mg PO QID [facility] Last Admin: 04/15/21:34 Dose: 250 mg Documented by: Thiamine HCl (Thiamine 100 Mg Tab) 100 mg PO DAILY [facility] Last Admin: 04/15/21:34 Dose: 100 mg Documented by: Results - Results Labs/Vitals: Laboratory Last Values WBC 6.3 K/mm3 (4.5-11.0) 04/07/21 12:56 RBC 3.39 M/mm3 (3.65-5.03) L 04/07/21 12:56 Hgb 9.8 gm/dl (10.1-14.3) L 04/07/21 12:56 Hct 30.1 % (30.3-42.9) L 04/07/21 12:56 MCV 89 fl (79-97) 04/07/21 12:56 MCH 29 pg (28-32) 04/07/21 12:56 MCHC 33 % (30-34) 04/07/21 12:56 RDW 18.4 % (13.2-15.2) H 04/07/21 12:56 Plt Count 402 K/mm3 (140-440) 04/07/21 12:56 Lymph % (Auto) 18.3 % (13.4-35.0) 04/07/21 12:56 [place] % (Auto) 7.3 % (0.0-7.3) 04/07/21 12:56 Eos % (Auto) 0.3 % (0.0-4.3) 04/07/21 12:56 Baso % (Auto) 0.3 % (0.0-1.8) 04/07/21 12:56 Lymph # (Auto) 1.2 K/mm3 (1.2-5.4) 04/07/21 12:56 [place] # (Auto) 0.5 K/mm3 (0.0-0.8) 04/07/21 12:56 Eos # (Auto) 0.0 K/mm3 (0.0-0.4) 04/07/21 12:56 Baso # (Auto) 0.0 K/mm3 (0.0-0.1) 04/07/21 12:56 Seg Neutrophils % 73.8 % (40.0-70.0) H 04/07/21 12:56 Seg Neutrophils # 4.7 K/mm3 (1.8-7.7) 04/07/21 12:56 Sodium 131 mmol/L (137-145) L 04/07/21 12:56 Potassium 3.6 mmol/L (3.6-5.0) 04/07/21 12:56 Chloride 97.3 mmol/L (98-107) L 04/07/21 12:56 Carbon Dioxide 21 mmol/L (22-30) L 04/07/21 12:56 Anion Gap 16 mmol/L 04/07/21 12:56 BUN 9 mg/dL (7-17) 04/07/21 12:56 Creatinine 0.7 mg/dL (0.6-1.2) 04/07/21 12:56 Estimated GFR > 60 ml/min 04/07/21 12:56 BUN/Creatinine Ratio 13 % 04/07/21 12:56 Glucose 181 mg/dL (65-100) H 04/07/21 12:56 POC Glucose 90 mg/dL (70-105) 04/06/21 21:28 Calcium 8.2 mg/dL (8.4-10.2) L 04/07/21 12:56 Total Bilirubin 0.20 mg/dL (0.1-1.2) 04/07/21 12:56 AST 23 units/L (5-40) 04/07/21 12:56 ALT 21 units/L (7-56) 04/07/21 12:56 Alkaline Phosphatase 334 units/L (35-129) H 04/07/21 12:56 Total Protein 5.3 g/dL (6.3-8.2) L 04/07/21 12:56 Albumin 2.5 g/dL (3.9-5) L 04/07/21 12:56 Albumin/Globulin Ratio 0.9 % 04/07/21 12:56 Last Vital Signs Temp 98.6 F 04/15/21 08:45 Pulse 114 H 04/15/21 08:45 Resp 18 04/15/21 08:45 BP 102/68 04/15/21 08:45 Pulse Ox 99 04/15/21 08:45
[2021-04-15] MEDS ORDERED: DIVALPROEX DR 125 MG TAB PO SCH (12:00)
[2021-04-15] MEDS: clonazePAM 0.5 MG TAB PO SCH (21:03)
[2021-04-16] MEDS: lamoTRIgine 100 MG TAB PO SCH ×4 (08:19→21:14)
[2021-04-16] MEDS: QUEtiapine 100 MG TAB PO SCH ×4 (08:20→21:14)
--- NOTE | 2021-04-16 09:03 | Progress Note ---
Subjective Date of service: 04/16/21 Principal diagnosis: Bipolar disorder Subjective Comment: The patient was seen today, she is a lot more pleasant than yesterday. She greets me and asks me what time it is. She says she slept good., The patient denies SI/HI or hallucinations of any kind. REVIEW OF SYSTEMS Constitutional: Negative for weight loss ENT: Negative for stridor Respiratory: Negative for cough or hemoptysis All other systems reviewed and are negative MENTAL STATUS EXAMINATION General Appearance and Behavior: Age appropriate, good hygiene, wearing appropriate clothes, fair eye contact, cooperative with questioning. Cooperation: Partially withdrawn Psychomotor Behavior: Psychomotor normal Mood: Good Affect and affective range: Congruent with mood Thought Process: Illogical, Thought Content: None Speech: Normal rate and volume Intellectual Functioning: Average Suicidal Ideation: denies Homicidal Ideation:denies Impulse Control: Impaired Insight and Judgment: Limited insight and judgment Memory: Short-term memory impaired Attention: Divided attention impaired Orientation: Alert, oriented Assessment and Plan (1) Bipolar disorder with psychotic features Current Visit: Yes Status: Acute Treatment Patient admitted for inpatient psychiatric evaluation, medication adjustment and close monitoring The patient's behavior, mood, sleep and appetite will be closely monitored. Patient enrolled in individual and group therapeutic sessions and encouraged to attend. Patient provided with a safe and structured environment. Patient's physical health needs will be addressed by the Hospitalist. Hospitalist Consulted Labs including CBC, CMP, Lipid profile and Hemoglobin A1C levels ordered for baseline reference Social Assessment will be completed and the Cougar Hunter will work with patient and family to ensure a suitable and safe disposition Medication adjustment will be made as clinically indicated Decreased Seroquel 250mg po TID yesterday Start Klonopin 0.25mg po BID x 3 days to help the patient calm down yesterday No changes made today Usual Wellness Mu-Ism/Preservation: - Start Trazodone 50 mg po QHS & 50 mg po QHS PRN between 10 PM & 2 AM for insomnia - Start Melatonin 5 mg po QHS to promote circadian rhythm - Start [place]-3 for brain health, reduce impulsivity, and as adjunctive treatment for mood disorder, continue upon discharge given overall benefits. - Start B1 prophylaxis with 200 mg po for 5 days The patient agreed on the treatment plan, understood the risk, benefit, alternative treatment, potential consequence of no treatment, and gave informed consent. Estimated days: 2 Post hospital care: primary care provider, psychiatric provider Medications and Allergies Allergies Allergy/AdvReac Type Severity Reaction Status Date / Time lithium AdvReac Unknown Unverified 04/06/21 17:18 Home Medications Medication Instructions Recorded Confirmed Last Taken Type Amoxicillin [Trimox CAP] 1,000 mg PO BID 04/07/21 04/07/21 Unknown History Cholecalciferol Vit D3 [Vitamin D3 1,000 units PO DAILY 04/07/21 04/07/21 Unknown History 1,000 UNIT TAB] DULoxetine [Cymbalta] 60 mg PO QDAY 04/07/21 04/07/21 Unknown History Docusate Sodium [Colace CAP] 100 mg PO DAILY 04/07/21 04/07/21 Unknown History Enoxaparin 40 mg SUB-Q DAILY 04/07/21 04/07/21 Unknown History Lactobacillus Acidophilus 2 cap PO BID 04/07/21 04/07/21 Unknown History [Acidophilus Lactobacilli] Omeprazole 20 mg PO DAILY 04/07/21 04/07/21 Unknown History Oxycodone HCl [oxyCODONE] 10 mg PO Q6HR PRN 04/07/21 04/07/21 Unknown History QUEtiapine [SEROquel] 25 mg PO Q6HR PRN 04/07/21 04/07/21 Unknown History Quetiapine Fumarate [SEROquel] 300 mg PO BID 04/07/21 04/07/21 Unknown History Thiamine [Vitamin B-1] 100 mg PO DAILY 04/07/21 04/07/21 Unknown History bisacodyL [Dulcolax tab] 10 mg PO DAILY PRN 04/07/21 04/07/21 Unknown History lamoTRIgine [LaMICtal] 100 mg PO BID 04/07/21 04/07/21 Unknown History traMADoL [Ultram 50 MG tab] 50 mg PO Q12HR PRN 04/07/21 04/07/21 Unknown History Active Meds: Active Medications Bisacodyl (Bisacodyl 5 Mg Tab) 10 mg PO DAILY PRN PRN Reason: Constipation Cholecalciferol (Cholecalciferol (Vit D3) 1000 Unit (25 Mcg) Tab) 1,000 unit PO DAILY [facility] Last Admin: 04/15/21 09:34 Dose: 1,000 unit Documented by: Clonazepam (Clonazepam 0.5 Mg Tab) 0.25 mg PO BID [facility] Stop: 04/18/21 06:00 Last Admin: 04/15/21 21:03 Dose: 0.25 mg Documented by: Docusate Sodium (Docusate Sodium 100 Mg Cap) 100 mg PO DAILY [facility] Last Admin: 04/15/21 09:34 Dose: 100 mg Documented by: Duloxetine HCl (Duloxetine 30 Mg Cap) 60 mg PO BID [facility] Last Admin: 04/15/21 21:03 Dose: 60 mg Documented by: Enoxaparin Sodium (Enoxaparin 40 Mg/0.4 Ml Inj) 40 mg SUB-Q DAILY [facility]; Protocol Last Admin: 04/15/21 09:37 Dose: 40 mg Documented by: Lactobacillus Acidophilus (Lactinex Chew Tab) 2 each PO BID [facility] Last Admin: 04/15/21 21:02 Dose: 2 each Documented by: Lamotrigine (Lamotrigine 100 Mg Tab) 100 mg PO TID [facility] Last Admin: 04/16/21 08:19 Dose: 100 mg Documented by: Oxycodone HCl (Oxycodone 5 Mg Tab) 10 mg PO Q12H PRN PRN Reason: Pain, Moderate (4-6) Pantoprazole Sodium (Pantoprazole 20 Mg Tab) 20 mg PO QDAY [facility] Last Admin: 04/15/21 09:34 Dose: 20 mg Documented by: Quetiapine Fumarate (Quetiapine 100 Mg Tab) 250 mg PO TID [facility] Last Admin: 04/16/21 08:20 Dose: 250 mg Documented by: Thiamine HCl (Thiamine 100 Mg Tab) 100 mg PO DAILY [facility] Last Admin: 04/15/21 09:34 Dose: 100 mg Documented by: Results - Results Labs/Vitals: Laboratory Last Values WBC 6.3 K/mm3 (4.5-11.0) 04/07/21 12:56 RBC 3.39 M/mm3 (3.65-5.03) L 04/07/21 12:56 Hgb 9.8 gm/dl (10.1-14.3) L 04/07/21 12:56 Hct 30.1 % (30.3-42.9) L 04/07/21 12:56 MCV 89 fl (79-97) 04/07/21 12:56 MCH 29 pg (28-32) 04/07/21 12:56 MCHC 33 % (30-34) 04/07/21 12:56 RDW 18.4 % (13.2-15.2) H 04/07/21 12:56 Plt Count 402 K/mm3 (140-440) 04/07/21 12:56 Lymph % (Auto) 18.3 % (13.4-35.0) 04/07/21 12:56 [place] % (Auto) 7.3 % (0.0-7.3) 04/07/21 12:56 Eos % (Auto) 0.3 % (0.0-4.3) 04/07/21 12:56 Baso % (Auto) 0.3 % (0.0-1.8) 04/07/21 12:56 Lymph # (Auto) 1.2 K/mm3 (1.2-5.4) 04/07/21 12:56 [place] # (Auto) 0.5 K/mm3 (0.0-0.8) 04/07/21 12:56 Eos # (Auto) 0.0 K/mm3 (0.0-0.4) 04/07/21 12:56 Baso # (Auto) 0.0 K/mm3 (0.0-0.1) 04/07/21 12:56 Seg Neutrophils % 73.8 % (40.0-70.0) H 04/07/21 12:56 Seg Neutrophils # 4.7 K/mm3 (1.8-7.7) 04/07/21 12:56 Sodium 131 mmol/L (137-145) L 04/07/21 12:56 Potassium 3.6 mmol/L (3.6-5.0) 04/07/21 12:56 Chloride 97.3 mmol/L (98-107) L 04/07/21 12:56 Carbon Dioxide 21 mmol/L (22-30) L 04/07/21 12:56 Anion Gap 16 mmol/L 04/07/21 12:56 BUN 9 mg/dL (7-17) 04/07/21 12:56 Creatinine 0.7 mg/dL (0.6-1.2) 04/07/21 12:56 Estimated GFR > 60 ml/min 04/07/21 12:56 BUN/Creatinine Ratio 13 % 04/07/21 12:56 Glucose 181 mg/dL (65-100) H 04/07/21 12:56 POC Glucose 90 mg/dL (70-105) 04/06/21 21:28 Calcium 8.2 mg/dL (8.4-10.2) L 04/07/21 12:56 Total Bilirubin 0.20 mg/dL (0.1-1.2) 04/07/21 12:56 AST 23 units/L (5-40) 04/07/21 12:56 ALT 21 units/L (7-56) 04/07/21 12:56 Alkaline Phosphatase 334 units/L (35-129) H 04/07/21 12:56 Total Protein 5.3 g/dL (6.3-8.2) L 04/07/21 12:56 Albumin 2.5 g/dL (3.9-5) L 04/07/21 12:56 Albumin/Globulin Ratio 0.9 % 04/07/21 12:56 Last Vital Signs Temp 97.9 F 04/15/21 20:02 Pulse 99 H 04/15/21 20:02 Resp 16 04/15/21 20:02 BP 106/64 04/15/21 20:02 Pulse Ox 97 04/15/21 20:02
[2021-04-16] MEDS: DOCUSATE SODIUM 100 MG CAP PO SCH ×2 (09:37→12:59)
[2021-04-16] MEDS: DULoxetine 30 MG CAP PO SCH ×3 (09:37→21:14)
[2021-04-16] MEDS: CHOLECALCIFEROL (VIT D3) 1000 UNIT (25 mcg) TAB PO SCH ×2 (09:37→13:00)
[2021-04-16] MEDS: THIAMINE 100 MG TAB PO SCH ×2 (09:37→13:00)
[2021-04-16] MEDS: clonazePAM 0.5 MG TAB PO SCH ×3 (09:38→21:15)
[2021-04-16] MEDS: LACTINEX CHEW TAB PO SCH ×3 (09:40→21:15)
[2021-04-16] MEDS: PANTOPRAZOLE 20 MG TAB PO SCH ×2 (09:40→13:00)
[2021-04-16] MEDS: ENOXAPARIN 40 MG/0.4 ML INJ SUB-Q SCH (09:41)
[2021-04-17] MEDS: lamoTRIgine 100 MG TAB PO SCH ×3 (09:00→20:55)
--- NOTE | 2021-04-17 09:27 | Progress Note ---
Subjective Date of service: 04/17/21 Principal diagnosis: Bipolar disorder Subjective Comment: Per Nurse Note: Pt woke up late around 11 am. Pt refused to eat breakfast and lunch. Pt was confused, yelling sporadically. Pt refused to have her vital signs checked, also refused to take her medications. Pt was agitated, resisting care. Pt was asking about her brother and was able to speak to him over the phone. Will continue to monitor for safety. The patient was seen today, she greets me this morning. She is calm and cooperative. She says she slept "great for the first time." She denies SI/HI or hallucinations of any kind. Will speak with social sciences chair to make sure outpatient resources are in place in order to ensue a safe discharge. REVIEW OF SYSTEMS Constitutional: Negative for weight loss ENT: Negative for stridor Respiratory: Negative for cough or hemoptysis All other systems reviewed and are negative MENTAL STATUS EXAMINATION General Appearance and Behavior: Age appropriate, good hygiene, wearing appropriate clothes, fair eye contact, cooperative with questioning. Cooperation: Partially withdrawn Psychomotor Behavior: Psychomotor normal Mood: Good Affect and affective range: Congruent with mood Thought Process: Illogical, Thought Content: None Speech: Normal rate and volume Intellectual Functioning: Average Suicidal Ideation: denies Homicidal Ideation:denies Impulse Control: Impaired Insight and Judgment: Limited insight and judgment Memory: Short-term memory impaired Attention: Divided attention impaired Orientation: Alert, oriented Assessment and Plan (1) Bipolar disorder with psychotic features Current Visit: Yes Status: Acute Treatment Patient admitted for inpatient psychiatric evaluation, medication adjustment and close monitoring The patient's behavior, mood, sleep and appetite will be closely monitored. Patient enrolled in individual and group therapeutic sessions and encouraged to attend. Patient provided with a safe and structured environment. Patient's physical health needs will be addressed by the Hospitalist. Hospitalist Consulted Labs including CBC, CMP, Lipid profile and Hemoglobin A1C levels ordered for baseline reference Social Assessment will be completed and the Wool Mixer will work with patient and family to ensure a suitable and safe disposition Medication adjustment will be made as clinically indicated Start Mirtazepine 7.5mg po qhs to increase appetite and improve sleep Usual Wellness Zoroastrianism/Preservation: - Start Trazodone 50 mg po QHS & 50 mg po QHS PRN between 10 PM & 2 AM for insomnia - Start Melatonin 5 mg po QHS to promote circadian rhythm - Start [place]-3 for brain health, reduce impulsivity, and as adjunctive treatment for mood disorder, continue upon discharge given overall benefits. - Start B1 prophylaxis with 200 mg po for 5 days The patient agreed on the treatment plan, understood the risk, benefit, alternative treatment, potential consequence of no treatment, and gave informed consent. Estimated days: 2 Post hospital care: primary care provider, psychiatric provider Medications and Allergies Allergies Allergy/AdvReac Type Severity Reaction Status Date / Time lithium AdvReac Unknown Unverified 04/06/21 17:18 Home Medications Medication Instructions Recorded Confirmed Last Taken Type Amoxicillin [Trimox CAP] 1,000 mg PO BID 04/07/21 04/07/21 Unknown History Cholecalciferol Vit D3 [Vitamin D3 1,000 units PO DAILY 04/07/21 04/07/21 Unknown History 1,000 UNIT TAB] DULoxetine [Cymbalta] 60 mg PO QDAY 04/07/21 04/07/21 Unknown History Docusate Sodium [Colace CAP] 100 mg PO DAILY 04/07/21 04/07/21 Unknown History Enoxaparin 40 mg SUB-Q DAILY 04/07/21 04/07/21 Unknown History Lactobacillus Acidophilus 2 cap PO BID 04/07/21 04/07/21 Unknown History [Acidophilus Lactobacilli] Omeprazole 20 mg PO DAILY 04/07/21 04/07/21 Unknown History Oxycodone HCl [oxyCODONE] 10 mg PO Q6HR PRN 04/07/21 04/07/21 Unknown History QUEtiapine [SEROquel] 25 mg PO Q6HR PRN 04/07/21 04/07/21 Unknown History Quetiapine Fumarate [SEROquel] 300 mg PO BID 04/07/21 04/07/21 Unknown History Thiamine [Vitamin B-1] 100 mg PO DAILY 04/07/21 04/07/21 Unknown History bisacodyL [Dulcolax tab] 10 mg PO DAILY PRN 04/07/21 04/07/21 Unknown History lamoTRIgine [LaMICtal] 100 mg PO BID 04/07/21 04/07/21 Unknown History traMADoL [Ultram 50 MG tab] 50 mg PO Q12HR PRN 04/07/21 04/07/21 Unknown History Active Meds: Active Medications Bisacodyl (Bisacodyl 5 Mg Tab) 10 mg PO DAILY PRN PRN Reason: Constipation Cholecalciferol (Cholecalciferol (Vit D3) 1000 Unit (25 Mcg) Tab) 1,000 unit PO DAILY [facility] Last Admin: 04/16/21 13:00 Dose: Not Given Documented by: Clonazepam (Clonazepam 0.5 Mg Tab) 0.25 mg PO BID [facility] Stop: 04/18/21 06:00 Last Admin: 04/16/21 21:15 Dose: 0.25 mg Documented by: Docusate Sodium (Docusate Sodium 100 Mg Cap) 100 mg PO DAILY [facility] Last Admin: 04/16/21 12:59 Dose: Not Given Documented by: Duloxetine HCl (Duloxetine 30 Mg Cap) 60 mg PO BID [facility] Last Admin: 04/16/21 21:14 Dose: 60 mg Documented by: Enoxaparin Sodium (Enoxaparin 40 Mg/0.4 Ml Inj) 40 mg SUB-Q DAILY [facility]; Protocol Last Admin: 04/16/21 09:41 Dose: 40 mg Documented by: Lactobacillus Acidophilus (Lactinex Chew Tab) 2 each PO BID [facility] Last Admin: 04/16/21 21:15 Dose: 2 each Documented by: Lamotrigine (Lamotrigine 100 Mg Tab) 100 mg PO TID [facility] Last Admin: 04/16/21 21:14 Dose: 100 mg Documented by: Oxycodone HCl (Oxycodone 5 Mg Tab) 10 mg PO Q12H PRN PRN Reason: Pain, Moderate (4-6) Pantoprazole Sodium (Pantoprazole 20 Mg Tab) 20 mg PO QDAY [facility] Last Admin: 04/16/21 13:00 Dose: Not Given Documented by: Quetiapine Fumarate (Quetiapine 100 Mg Tab) 250 mg PO TID [facility] Last Admin: 04/16/21 21:14 Dose: 250 mg Documented by: Thiamine HCl (Thiamine 100 Mg Tab) 100 mg PO DAILY [facility] Last Admin: 04/16/21 13:00 Dose: Not Given Documented by: Results - Results Labs/Vitals: Laboratory Last Values WBC 6.3 K/mm3 (4.5-11.0) 04/07/21 12:56 RBC 3.39 M/mm3 (3.65-5.03) L 04/07/21 12:56 Hgb 9.8 gm/dl (10.1-14.3) L 04/07/21 12:56 Hct 30.1 % (30.3-42.9) L 04/07/21 12:56 MCV 89 fl (79-97) 04/07/21 12:56 MCH 29 pg (28-32) 04/07/21 12:56 MCHC 33 % (30-34) 04/07/21 12:56 RDW 18.4 % (13.2-15.2) H 04/07/21 12:56 Plt Count 402 K/mm3 (140-440) 04/07/21 12:56 Lymph % (Auto) 18.3 % (13.4-35.0) 04/07/21 12:56 [place] % (Auto) 7.3 % (0.0-7.3) 04/07/21 12:56 Eos % (Auto) 0.3 % (0.0-4.3) 04/07/21 12:56 Baso % (Auto) 0.3 % (0.0-1.8) 04/07/21 12:56 Lymph # (Auto) 1.2 K/mm3 (1.2-5.4) 04/07/21 12:56 [place] # (Auto) 0.5 K/mm3 (0.0-0.8) 04/07/21 12:56 Eos # (Auto) 0.0 K/mm3 (0.0-0.4) 04/07/21 12:56 Baso # (Auto) 0.0 K/mm3 (0.0-0.1) 04/07/21 12:56 Seg Neutrophils % 73.8 % (40.0-70.0) H 04/07/21 12:56 Seg Neutrophils # 4.7 K/mm3 (1.8-7.7) 04/07/21 12:56 Sodium 131 mmol/L (137-145) L 04/07/21 12:56 Potassium 3.6 mmol/L (3.6-5.0) 04/07/21 12:56 Chloride 97.3 mmol/L (98-107) L 04/07/21 12:56 Carbon Dioxide 21 mmol/L (22-30) L 04/07/21 12:56 Anion Gap 16 mmol/L 04/07/21 12:56 BUN 9 mg/dL (7-17) 04/07/21 12:56 Creatinine 0.7 mg/dL (0.6-1.2) 04/07/21 12:56 Estimated GFR > 60 ml/min 04/07/21 12:56 BUN/Creatinine Ratio 13 % 04/07/21 12:56 Glucose 181 mg/dL (65-100) H 04/07/21 12:56 POC Glucose 90 mg/dL (70-105) 04/06/21 21:28 Calcium 8.2 mg/dL (8.4-10.2) L 04/07/21 12:56 Total Bilirubin 0.20 mg/dL (0.1-1.2) 04/07/21 12:56 AST 23 units/L (5-40) 04/07/21 12:56 ALT 21 units/L (7-56) 04/07/21 12:56 Alkaline Phosphatase 334 units/L (35-129) H 04/07/21 12:56 Total Protein 5.3 g/dL (6.3-8.2) L 04/07/21 12:56 Albumin 2.5 g/dL (3.9-5) L 04/07/21 12:56 Albumin/Globulin Ratio 0.9 % 04/07/21 12:56 Last Vital Signs Temp 98.2 F 04/16/21 19:42 Pulse 117 H 04/16/21 19:42 Resp 17 04/16/21 19:42 BP 127/69 04/16/21 19:42 Pulse Ox 97 04/16/21 19:42
[2021-04-17] MEDS: QUEtiapine 100 MG TAB PO SCH ×3 (09:40→20:56)
[2021-04-17] MEDS: ENOXAPARIN 40 MG/0.4 ML INJ SUB-Q SCH (09:42)
[2021-04-17] MEDS: DULoxetine 30 MG CAP PO SCH ×2 (09:42→21:39)
[2021-04-17] MEDS: DOCUSATE SODIUM 100 MG CAP PO SCH (09:42)
[2021-04-17] MEDS: PANTOPRAZOLE 20 MG TAB PO SCH (09:43)
[2021-04-17] MEDS: THIAMINE 100 MG TAB PO SCH (09:43)
[2021-04-17] MEDS: clonazePAM 0.5 MG TAB PO SCH ×2 (09:43→21:40)
[2021-04-17] MEDS: LACTINEX CHEW TAB PO SCH ×2 (09:43→21:40)
[2021-04-17] MEDS: CHOLECALCIFEROL (VIT D3) 1000 UNIT (25 mcg) TAB PO SCH (09:43)
[2021-04-17] MEDS: MIRTAZAPINE 15 MG TAB PO SCH (21:39)
[2021-04-18] MEDS: CHOLECALCIFEROL (VIT D3) 1000 UNIT (25 mcg) TAB PO SCH (09:11)
[2021-04-18] MEDS: DOCUSATE SODIUM 100 MG CAP PO SCH (09:11)
[2021-04-18] MEDS: QUEtiapine 100 MG TAB PO SCH ×3 (09:11→22:05)
[2021-04-18] MEDS: THIAMINE 100 MG TAB PO SCH (09:11)
[2021-04-18] MEDS: lamoTRIgine 100 MG TAB PO SCH ×3 (09:11→21:51)
[2021-04-18] MEDS: DULoxetine 30 MG CAP PO SCH ×2 (09:12→21:52)
[2021-04-18] MEDS: PANTOPRAZOLE 20 MG TAB PO SCH (09:12)
[2021-04-18] MEDS: LACTINEX CHEW TAB PO SCH ×2 (09:12→21:51)
[2021-04-18] MEDS: ENOXAPARIN 40 MG/0.4 ML INJ SUB-Q SCH (09:12)
--- NOTE | 2021-04-18 11:13 | Progress Note ---
Subjective Date of service: 04/18/21 Principal diagnosis: Bipolar disorder Subjective Comment: Per Nurse Note: pt rested well overnight, slept for 8hrs, no distress noted, will continue to monitor for safety. Patient seen laying in bed. Patient presents with confusion and being loud. she states " I'm doing well, I have tree on top of my head." She denies suicidal ideation. REVIEW OF SYSTEMS Constitutional: Negative for weight loss ENT: Negative for stridor Respiratory: Negative for cough or hemoptysis All other systems reviewed and are negative MENTAL STATUS EXAMINATION General Appearance and Behavior: Age appropriate, good hygiene, wearing appropriate clothes, fair eye contact, cooperative with questioning. Cooperation: Partially withdrawn Psychomotor Behavior: Psychomotor normal Mood: "I'm doing well" Affect and affective range: non-congruent with mood Thought Process: Illogical, Thought Content: None Speech: loud Intellectual Functioning: Average Suicidal Ideation: denies Homicidal Ideation:denies Impulse Control: Impaired Insight and Judgment: Limited insight and judgment Memory: Short-term memory impaired Attention: Divided attention impaired Orientation: Alert, confused Assessment and Plan (1) Bipolar disorder with psychotic features Current Visit: Yes Status: Acute Treatment Patient admitted for inpatient psychiatric evaluation, medication adjustment and close monitoring The patient's behavior, mood, sleep and appetite will be closely monitored. Patient enrolled in individual and group therapeutic sessions and encouraged to attend. Patient provided with a safe and structured environment. Patient's physical health needs will be addressed by the Hospitalist. Hosp italist Consulted Labs including CBC, CMP, Lipid profile and Hemoglobin A1C levels ordered for baseline reference Social Assessment will be completed and the Cattle Dealer will work with patient and family to ensure a suitable and safe disposition Medication adjustment will be made as clinically indicated [facility]ervation: - Continue- Trazodone 50 mg po QHS & 50 mg po QHS PRN between 10 PM & 2 AM for insomnia - Continue-Melatonin 5 mg po QHS to promote circadian rhythm - [id number] for brain health, reduce impulsivity, and as adjunctive treatment for mood disorder, continue upon discharge given overall benefits. - Continue- B1 prophylaxis with 200 mg po for 5 days The patient agreed on the treatment plan, understood the risk, benefit, alternative treatment, potential consequence of no treatment, and gave informed consent. Estimated days: 2 Post hospital care: primary care provider, psychiatric provider Medications and Allergies Allergies Allergy/AdvReac Type Severity Reaction Status Date / Time lithium AdvReac Unknown Unverified 04/06/21 17:18 Home Medications Medication Instructions Recorded Confirmed Last Taken Type Amoxicillin [Trimox CAP] 1,000 mg PO BID 04/07/21 04/07/21 Unknown History Cholecalciferol Vit D3 [Vitamin D3 1,000 units PO DAILY 04/07/21 04/07/21 Unknown History 1,000 UNIT TAB] DULoxetine [Cymbalta] 60 mg PO QDAY 04/07/21 04/07/21 Unknown History Docusate Sodium [Colace CAP] 100 mg PO DAILY 04/07/21 04/07/21 Unknown History Enoxaparin 40 mg SUB-Q DAILY 04/07/21 04/07/21 Unknown History Lactobacillus Acidophilus 2 cap PO BID 04/07/21 04/07/21 Unknown History [Acidophilus Lactobacilli] Omeprazole 20 mg PO DAILY 04/07/21 04/07/21 Unknown History Oxycodone HCl [oxyCODONE] 10 mg PO Q6HR PRN 04/07/21 04/07/21 Unknown History QUEtiapine [SEROquel] 25 mg PO Q6HR PRN 04/07/21 04/07/21 Unknown History Quetiapine Fumarate [SEROquel] 300 mg PO BID 04/07/21 04/07/21 Unknown History Thiamine [Vitamin B-1] 100 mg PO DAILY 04/07/21 04/07/21 Unknown History bisacodyL [Dulcolax tab] 10 mg PO DAILY PRN 04/07/21 04/07/21 Unknown History lamoTRIgine [LaMICtal] 100 mg PO BID 04/07/21 04/07/21 Unknown History traMADoL [Ultram 50 MG tab] 50 mg PO Q12HR PRN 04/07/21 04/07/21 Unknown History Active Meds: Active Medications Bisacodyl (Bisacodyl 5 Mg Tab) 10 mg PO DAILY PRN PRN Reason: Constipation Cholecalciferol (Cholecalciferol (Vit D3) 1000 Unit (25 Mcg) Tab) 1,000 unit PO DAILY [facility] Last Admin: 04/18/21 09:11 Dose: 1,000 unit Documented by: Docusate Sodium (Docusate Sodium 100 Mg Cap) 100 mg PO DAILY [facility] Last Admin: 04/18/21 09:11 Dose: 100 mg Documented by: Duloxetine HCl (Duloxetine 30 Mg Cap) 60 mg PO BID [facility] Last Admin: 04/18/21 09:12 Dose: 60 mg Documented by: Enoxaparin Sodium (Enoxaparin 40 Mg/0.4 Ml Inj) 40 mg SUB-Q DAILY [facility]; Protocol Last Admin: 04/18/21 09:12 Dose: 40 mg Documented by: Lactobacillus Acidophilus (Lactinex Chew Tab) 2 each PO BID [facility] Last Admin: 04/18/21 09:12 Dose: 2 each Documented by: Lamotrigine (Lamotrigine 100 Mg Tab) 100 mg PO TID [facility] Last Admin: 04/18/21 09:11 Dose: 100 mg Documented by: Mirtazapine (Mirtazapine 15 Mg Tab) 7.5 mg PO QHS [facility] Last Admin: 04/17/21 21:39 Dose: 7.5 mg Documented by: Oxycodone HCl (Oxycodone 5 Mg Tab) 10 mg PO Q12H PRN PRN Reason: Pain, Moderate (4-6) Last Admin: 04/18/21 09:12 Dose: 10 mg Documented by: Pantoprazole Sodium (Pantoprazole 20 Mg Tab) 20 mg PO QDAY [facility] Last Admin: 04/18/21 09:12 Dose: 20 mg Documented by: Quetiapine Fumarate (Quetiapine 100 Mg Tab) 250 mg PO TID [facility] Last Admin: 04/18/21 09:11 Dose: 250 mg Documented by: Thiamine HCl (Thiamine 100 Mg Tab) 100 mg PO DAILY [facility] Last Admin: 04/18/21 09:11 Dose: 100 mg Documented by: Results - Results Labs/Vitals: Laboratory Last Values WBC 6.3 K/mm3 (4.5-11.0) 04/07/21 12:56 RBC 3.39 M/mm3 (3.65-5.03) L 04/07/21 12:56 Hgb 9.8 gm/dl (10.1-14.3) L 04/07/21 12:56 Hct 30.1 % (30.3-42.9) L 04/07/21 12:56 MCV 89 fl (79-97) 04/07/21 12:56 MCH 29 pg (28-32) 04/07/21 12:56 MCHC 33 % (30-34) 04/07/21 12:56 RDW 18.4 % (13.2-15.2) H 04/07/21 12:56 Plt Count 402 K/mm3 (140-440) 04/07/21 12:56 Lymph % (Auto) 18.3 % (13.4-35.0) 04/07/21 12:56 Harmon % (Auto) 7.3 % (0.0-7.3) 04/07/21 12:56 Eos % (Auto) 0.3 % (0.0-4.3) 04/07/21 12:56 Baso % (Auto) 0.3 % (0.0-1.8) 04/07/21 12:56 Lymph # (Auto) 1.2 K/mm3 (1.2-5.4) 04/07/21 12:56 Harmon # (Auto) 0.5 K/mm3 (0.0-0.8) 04/07/21 12:56 Eos # (Auto) 0.0 K/mm3 (0.0-0.4) 04/07/21 12:56 Baso # (Auto) 0.0 K/mm3 (0.0-0.1) 04/07/21 12:56 Seg Neutrophils % 73.8 % (40.0-70.0) H 04/07/21 12:56 Seg Neutrophils # 4.7 K/mm3 (1.8-7.7) 04/07/21 12:56 Sodium 131 mmol/L (137-145) L 04/07/21 12:56 Potassium 3.6 mmol/L (3.6-5.0) 04/07/21 12:56 Chloride 97.3 mmol/L (98-107) L 04/07/21 12:56 Carbon Dioxide 21 mmol/L (22-30) L 04/07/21 12:56 Anion Gap 16 mmol/L 04/07/21 12:56 BUN 9 mg/dL (7-17) 04/07/21 12:56 Creatinine 0.7 mg/dL (0.6-1.2) 04/07/21 12:56 Estimated GFR > 60 ml/min 04/07/21 12:56 BUN/Creatinine Ratio 13 % 04/07/21 12:56 Glucose 181 mg/dL (65-100) H 04/07/21 12:56 POC Glucose 90 mg/dL (70-105) 04/06/21 21:28 Calcium 8.2 mg/dL (8.4-10.2) L 04/07/21 12:56 Total Bilirubin 0.20 mg/dL (0.1-1.2) 04/07/21 12:56 AST 23 units/L (5-40) 04/07/21 12:56 ALT 21 units/L (7-56) 04/07/21 12:56 Alkaline Phosphatase 334 units/L (35-129) H 04/07/21 12:56 Total Protein 5.3 g/dL (6.3-8.2) L 04/07/21 12:56 Albumin 2.5 g/dL (3.9-5) L 04/07/21 12:56 Albumin/Globulin Ratio 0.9 % 04/07/21 12:56 Last Vital Signs Temp 97.0 F L 04/18/21 09:00 Pulse 99 H 04/18/21 09:00 Resp 18 04/18/21 09:12 BP 130/80 04/18/21 09:00 Pulse Ox 100 04/18/21 09:00
[2021-04-18] MEDS: MIRTAZAPINE 15 MG TAB PO SCH (21:52)
--- NOTE | 2021-04-19 08:25 | Event Note ---
Date: 04/19/21 Spoke to the patient's brother this morning about the patient's progress and discharge planning. He says he and the SW are working on having her a place today. Informed him that the patient has some periodic yelling but has been sleeping well, med compliant, without SI/HI or hallucinations, and is ready for discharge from a psych standpoint. He thanked me and verbalized understanding and agreement.
[2021-04-19] MEDS: CHOLECALCIFEROL (VIT D3) 1000 UNIT (25 mcg) TAB PO SCH (10:19)
[2021-04-19] MEDS: PANTOPRAZOLE 20 MG TAB PO SCH (10:19)
[2021-04-19] MEDS: lamoTRIgine 100 MG TAB PO SCH ×3 (10:19→20:35)
[2021-04-19] MEDS: QUEtiapine 100 MG TAB PO SCH ×3 (10:19→23:16)
[2021-04-19] MEDS: LACTINEX CHEW TAB PO SCH ×2 (10:19→22:36)
[2021-04-19] MEDS: DOCUSATE SODIUM 100 MG CAP PO SCH (10:19)
[2021-04-19] MEDS: DULoxetine 30 MG CAP PO SCH ×2 (10:19→22:35)
[2021-04-19] MEDS: ENOXAPARIN 40 MG/0.4 ML INJ SUB-Q SCH (10:20)
[2021-04-19] MEDS: THIAMINE 100 MG TAB PO SCH (10:20)
--- NOTE | 2021-04-19 12:43 | Discharge Summary ---
Providers - Providers Date of Admission: 04/06/21 20:34 Date of discharge: 04/19/21 Attending physician: APRIL GANDHI MD 04/06/21 17:49 Consult to Physician [CONS] Routine Comment: Consulting Provider: VANCE ZIEGLER Physician Instructions: Reason For Exam: medical management Consult to Wound/ET Nurse [CONS] Routine Reason For Exam: wound eval 04/07/21 05:48 Physical Therapy Evaluation and Treat [CONS] Routine Comment: Reason For Exam: difficuty walking 04/07/21 05:50 Consult to Dietitian/Nutrition [CONS] Routine Physician Instructions: Reason For Exam: Reason for Consult: Poor oral intake Primary care physician: NITRIC ACID PLANT OPERATOR Hospitalization Reason for admission: Severe anxiety and depression Admitting Diagnosis: F31.9 - BIPOLAR DISORDER, UNSPECIFIED Condition: Stable Hospital course: he patient was provided inpatient psychiatric treatment with safe and supportive environment, group/individual therapy, psychiatric medication, medication adjustment, adverse effect monitor, medical evaluation, medical treatment, social service assessment, social support meeting, placement assessment and psycho-education. The patients mood, behavior, compliance to treatment and appreciation on family/social support are improved and stabilized. At the time of discharge, the patient no endangering behavior and no debilitating adverse effects. Over 35 minutes spent for discharge process, education and behavioral counselling. Disposition: -01 TO HOME OR SELFCARE Time spent for discharge: 35 Allergies/Adverse Reactions: Allergies lithium Adverse Reaction (Unverified 04/06/21 17:18) Unknown Vital Signs: Last Vital Signs Temp 97.4 F L 04/19/21 06:50 Pulse 97 H 04/19/21 06:50 Resp 16 04/19/21 06:50 BP 114/62 04/19/21 06:50 Pulse Ox 98 04/19/21 06:50 Last Lab: Laboratory Last Values WBC 6.3 K/mm3 (4.5-11.0) 04/07/21 12:56 RBC 3.39 M/mm3 (3.65-5.03) L 04/07/21 12:56 Hgb 9.8 gm/dl (10.1-14.3) L 04/07/21 12:56 Hct 30.1 % (30.3-42.9) L 04/07/21 12:56 MCV 89 fl (79-97) 04/07/21 12:56 MCH 29 pg (28-32) 04/07/21 12:56 MCHC 33 % (30-34) 04/07/21 12:56 RDW 18.4 % (13.2-15.2) H 04/07/21 12:56 Plt Count 402 K/mm3 (140-440) 04/07/21 12:56 Lymph % (Auto) 18.3 % (13.4-35.0) 04/07/21 12:56 Arthur % (Auto) 7.3 % (0.0-7.3) 04/07/21 12:56 Eos % (Auto) 0.3 % (0.0-4.3) 04/07/21 12:56 Baso % (Auto) 0.3 % (0.0-1.8) 04/07/21 12:56 Lymph # (Auto) 1.2 K/mm3 (1.2-5.4) 04/07/21 12:56 Arthur # (Auto) 0.5 K/mm3 (0.0-0.8) 04/07/21 12:56 Eos # (Auto) 0.0 K/mm3 (0.0-0.4) 04/07/21 12:56 Baso # (Auto) 0.0 K/mm3 (0.0-0.1) 04/07/21 12:56 Seg Neutrophils % 73.8 % (40.0-70.0) H 04/07/21 12:56 Seg Neutrophils # 4.7 K/mm3 (1.8-7.7) 04/07/21 12:56 Sodium 131 mmol/L (137-145) L 04/07/21 12:56 Potassium 3.6 mmol/L (3.6-5.0) 04/07/21 12:56 Chloride 97.3 mmol/L (98-107) L 04/07/21 12:56 Carbon Dioxide 21 mmol/L (22-30) L 04/07/21 12:56 Anion Gap 16 mmol/L 04/07/21 12:56 BUN 9 mg/dL (7-17) 04/07/21 12:56 Creatinine 0.7 mg/dL (0.6-1.2) 04/07/21 12:56 Estimated GFR > 60 ml/min 04/07/21 12:56 BUN/Creatinine Ratio 13 % 04/07/21 12:56 Glucose 181 mg/dL (65-100) H 04/07/21 12:56 POC Glucose 90 mg/dL (70-105) 04/06/21 21:28 Calcium 8.2 mg/dL (8.4-10.2) L 04/07/21 12:56 Total Bilirubin 0.20 mg/dL (0.1-1.2) 04/07/21 12:56 AST 23 units/L (5-40) 04/07/21 12:56 ALT 21 units/L (7-56) 04/07/21 12:56 Alkaline Phosphatase 334 units/L (35-129) H 04/07/21 12:56 Total Protein 5.3 g/dL (6.3-8.2) L 04/07/21 12:56 Albumin 2.5 g/dL (3.9-5) L 04/07/21 12:56 Albumin/Globulin Ratio 0.9 % 04/07/21 12:56 Core Measure Documentation - Palliative Care Palliative Care/ Comfort Measures: Not Applicable - Core Measures Any of the following diagnoses?: none Exam - Constitutional Vitals: Temp Pulse Resp BP Pulse Ox 97.4 F L 97 H 16 114/62 98 04/19/21 06:50 04/19/21 06:50 04/19/21 06:50 04/19/21 06:50 04/19/21 06:50 General appearance: Present: no acute distress - EENT Eyes: Present: EOM intact ENT: clear oral mucosa - Neck Neck: Present: normal ROM - Respiratory Respiratory effort: normal - Integumentary Integumentary: Present: clear, warm Plan Activity: advance as tolerated Weight Bearing Status: Weight Bear as Tolerated Care Plan Goals: Maintain good and stable mental health Plan of Treatment: The patient should be compliant with medications, not to use drugs and not to drink alcohol. The patient understands that if suicidal ideas, homicidal ideas, or any endangering thoughts arise, the patient should immediately seek for emergent assistance including but not limited to crisis hot line and emergency room. Follow up with outpatient Psychiatrist and PCP within 7 - 14 days of discharge. Assessment: Bipolar Disorder Follow up with: PRIMARY CARE, [Primary Care Provider] - 7 Days Prescriptions: Mirtazapine [Remeron 15mg TAB] 7.5 mg PO QHS #30 tablet DULoxetine [Cymbalta] 60 mg PO QDAY #120 cap QUEtiapine [SEROquel] 250 mg PO TID #90 tablet
--- NOTE | 2021-04-19 14:48 | Event Note ---
Date: 04/19/21 request for discharge to be canceled today due to placement issues and family not in agreement with facility chosen, per the SW.
--- NOTE | 2021-04-19 15:34 | XRay Report ---
CHEST 1 VIEW INDICATION / CLINICAL INFORMATION: r/o TB. COMPARISON: None available. FINDINGS: SUPPORT DEVICES: None. HEART / MEDIASTINUM: No significant abnormality. LUNGS / PLEURA: No significant pulmonary or pleural abnormality. No pneumothorax. ADDITIONAL FINDINGS: No significant additional findings. IMPRESSION: No acute pulmonary or pleural abnormality. No definite radiographic evidence of active tuberculosis Signer Name: Jae Yancey MD FACJacquelyn Signed: 04/19/2021 3:29 PM Workstation Name: [employer]MARISSA
--- NOTE | 2021-04-19 20:05 | Progress Note ---
Assessment and Plan - Patient Problems (1) Vascular dementia with behavioral disturbance Status: Acute Plan to address problem: For prompting, verbal redirection, benzodiazepine therapy as clinically indicated. (2) Cerebral atherosclerosis Status: Acute Plan to address problem: Antiplatelet therapy, supportive care, continue medical management (3) Chronic pain syndrome Status: Acute Plan to address problem: Pain control, supportive care. (4) GERD (gastroesophageal reflux disease) Status: Acute Plan to address problem: PPI therapy, supportive care. History Interval history: 70 YO Female with Bipolar Disorder, Vascular Dementia, Cerebral Atherosclerosis, GERD, Asthma, Chronic Pain Syndrome, Osteoperosis admitted to [facility] for Psychiatric stabilization. Patient seen and evaluated in the recreation room. No reported nursing events. Patient appears comfortable. Hospitalist Physical - Constitutional Vitals: Temp Pulse Resp BP Pulse Ox 97.4 F L 97 H 16 114/62 98 04/19/21 06:50 04/19/21 06:50 04/19/21 06:50 04/19/21 06:50 04/19/21 06:50 General appearance: Present: no acute distress - EENT Eyes: Present: PERRL, irregular pupil ENT: hearing decreased - Neck Neck: Present: supple - Respiratory Respiratory effort: labored Respiratory: bilateral: CTA - Cardiovascular Rhythm: regular Heart Sounds: Present: S1 & S2 - Extremities Extremities: no ischemia Peripheral Pulses: within normal limits - Abdominal General gastrointestinal: soft, non-tender, non-distended - Integumentary Integumentary: Present: clear, dry - Psychiatric Psychiatric: cooperative - Neurologic Neurologic: CNII-XII intact Results - Labs CBC & Chem 7: 04/07/21 12:56 04/07/21 12:56 Labs: Laboratory Last Values WBC 6.3 K/mm3 (4.5-11.0) 04/07/21 12:56 RBC 3.39 M/mm3 (3.65-5.03) L 04/07/21 12:56 Hgb 9.8 gm/dl (10.1-14.3) L 04/07/21 12:56 Hct 30.1 % (30.3-42.9) L 04/07/21 12:56 MCV 89 fl (79-97) 04/07/21 12:56 MCH 29 pg (28-32) 04/07/21 12:56 MCHC 33 % (30-34) 04/07/21 12:56 RDW 18.4 % (13.2-15.2) H 04/07/21 12:56 Plt Count 402 K/mm3 (140-440) 04/07/21 12:56 Lymph % (Auto) 18.3 % (13.4-35.0) 04/07/21 12:56 Hemphill % (Auto) 7.3 % (0.0-7.3) 04/07/21 12:56 Eos % (Auto) 0.3 % (0.0-4.3) 04/07/21 12:56 Baso % (Auto) 0.3 % (0.0-1.8) 04/07/21 12:56 Lymph # (Auto) 1.2 K/mm3 (1.2-5.4) 04/07/21 12:56 Hemphill # (Auto) 0.5 K/mm3 (0.0-0.8) 04/07/21 12:56 Eos # (Auto) 0.0 K/mm3 (0.0-0.4) 04/07/21 12:56 Baso # (Auto) 0.0 K/mm3 (0.0-0.1) 04/07/21 12:56 Seg Neutrophils % 73.8 % (40.0-70.0) H 04/07/21 12:56 Seg Neutrophils # 4.7 K/mm3 (1.8-7.7) 04/07/21 12:56 Sodium 131 mmol/L (137-145) L 04/07/21 12:56 Potassium 3.6 mmol/L (3.6-5.0) 04/07/21 12:56 Chloride 97.3 mmol/L (98-107) L 04/07/21 12:56 Carbon Dioxide 21 mmol/L (22-30) L 04/07/21 12:56 Anion Gap 16 mmol/L 04/07/21 12:56 BUN 9 mg/dL (7-17) 04/07/21 12:56 Creatinine 0.7 mg/dL (0.6-1.2) 04/07/21 12:56 Estimated GFR > 60 ml/min 04/07/21 12:56 BUN/Creatinine Ratio 13 % 04/07/21 12:56 Glucose 181 mg/dL (65-100) H 04/07/21 12:56 POC Glucose 90 mg/dL (70-105) 04/06/21 21:28 Calcium 8.2 mg/dL (8.4-10.2) L 04/07/21 12:56 Total Bilirubin 0.20 mg/dL (0.1-1.2) 04/07/21 12:56 AST 23 units/L (5-40) 04/07/21 12:56 ALT 21 units/L (7-56) 04/07/21 12:56 Alkaline Phosphatase 334 units/L (35-129) H 04/07/21 12:56 Total Protein 5.3 g/dL (6.3-8.2) L 04/07/21 12:56 Albumin 2.5 g/dL (3.9-5) L 04/07/21 12:56 Albumin/Globulin Ratio 0.9 % 04/07/21 12:56 Hussein/IV: Voiding Method Incontinent Active Medications - Current Medications Current Medications: Generic Name Dose Route Start Last Admin Trade Name Freq PRN Reason Stop Dose Admin Bisacodyl 10 mg 04/07/21 15:00 Bisacodyl 5 Mg Tab PO DAILY PRN Constipation Cholecalciferol 1,000 unit 04/07/21 12:00 04/19/21 10:19 Cholecalciferol (Vit D3) 1000 Unit (25 Mcg) Tab PO 1,000 unit DAILY CHYNA Administration Docusate Sodium 100 mg 04/08/21 10:00 04/19/21 10:19 Docusate Sodium 100 Mg Cap PO 100 mg DAILY CHYNA Administration Duloxetine HCl 60 mg 04/13/21 10:00 04/19/21 10:19 Duloxetine 30 Mg Cap PO 60 mg BID CHYNA Administration Enoxaparin Sodium 40 mg 04/10/21 10:00 04/19/21 10:20 Enoxaparin 40 Mg/0.4 Ml Inj SUB-Q 40 mg DAILY CHYNA Administration Protocol Lactobacillus Acidophilus 2 each 04/09/21 22:00 04/19/21 10:19 Lactinex Chew Tab PO 2 each BID CHYNA Administration Lamotrigine 100 mg 04/13/21 10:00 04/19/21 14:50 Lamotrigine 100 Mg Tab PO 100 mg TID CHYNA Administration Mirtazapine 7.5 mg 04/17/21 22:00 04/18/21 21:52 Mirtazapine 15 Mg Tab PO 7.5 mg QHS CHYNA Administration Oxycodone HCl 10 mg 04/13/21 10:00 04/18/21 09:12 Oxycodone 5 Mg Tab PO 10 mg Q12H PRN Administration Pain, Moderate (4-6) Pantoprazole Sodium 20 mg 04/07/21 12:00 04/19/21 10:19 Pantoprazole 20 Mg Tab PO 20 mg QDAY CHYNA Administration Quetiapine Fumarate 250 mg 04/15/21 14:00 04/19/21 14:50 Quetiapine 100 Mg Tab PO 250 mg TID CHYNA Administration Thiamine HCl 100 mg 04/07/21 12:00 04/19/21 10:20 Thiamine 100 Mg Tab PO 100 mg DAILY CHYNA Administration Nutrition/Malnutrition Assess - Dietary Evaluation Nutrition/Malnutrition Findings: Nutrition Notes Start: 04/07/21 12:34 Freq: Status: Active Protocol: Document 04/19/21 11:41 (Rec: 04/19/21 11:46 [id number]) Nutrition Notes Initial or Follow up Reassessment Other Pertinent Diagnosis bipolar disorder, GERD, chronic encephalopathy, osteroporosis Current Diet Regular Labs/Tests No new labs Pertinent Medications Remeron Height 5 ft 4 in Weight 47.174 kg Henry Body Weight (kg) 54.54 BMI 17.8 Weight Status Underweight Subjective/Other Information FU for intakes. Unable to gain access to floor and no answer on phone. Per chart, pt consuming 25% of meals and ONS . Percent of energy/protein needs met: 48%/69% Burn Absent Trauma Absent GI Symptoms None Food Allergy No Current % PO Poor (25-49%) Minimum of two criteria No Muscle Mass Mild Depletion (non-severe) #1 Nutrition Diagnosis Inadequate energy intake Etiology unknown As Evidenced by Signs and Symptoms pt meeting 48%/69% of needs Is patient on ventilator? No Is Patient Ambulatory and/or Out of Bed Yes REE-([place]-ambulatory/OOB) [ 1282.762 [id number]] Kcal/Kg value to use for calculation 33 Approximate Energy Requirements Using 1557 kcal/Kg Calculation Used for Recommendations Kcal/kg Additional Notes Protein: (1-1.2g/kg) 47-56g Fluid: 1 ml/kcal Nutrition Intervention Change Diet Order: Continue Add Supplement/Snack (indicate name/kcal Ensure Enlive BID /protein ) Provides kCal: 700 Provides Protein (gm) 40 Goal #1 Meet at least 75% of protein and energy needs via PO and ONS intakes Goal #2 weight gain/ stabilization Anticipated Discharge Needs: Regular with ONS PRN Follow-Up By: 04/21/21 Additional Comments FU for intakes
[2021-04-19] MEDS: MIRTAZAPINE 15 MG TAB PO SCH (22:36)
[2021-04-20] MEDS: THIAMINE 100 MG TAB PO SCH (09:25)
[2021-04-20] MEDS: CHOLECALCIFEROL (VIT D3) 1000 UNIT (25 mcg) TAB PO SCH (09:26)
[2021-04-20] MEDS: DULoxetine 30 MG CAP PO SCH ×2 (09:26→21:22)
[2021-04-20] MEDS: ENOXAPARIN 40 MG/0.4 ML INJ SUB-Q SCH (09:26)
[2021-04-20] MEDS: QUEtiapine 100 MG TAB PO SCH ×3 (09:26→21:21)
[2021-04-20] MEDS: lamoTRIgine 100 MG TAB PO SCH ×3 (09:26→21:21)
[2021-04-20] MEDS: PANTOPRAZOLE 20 MG TAB PO SCH (09:26)
[2021-04-20] MEDS: LACTINEX CHEW TAB PO SCH ×2 (09:26→21:21)
[2021-04-20] MEDS: DOCUSATE SODIUM 100 MG CAP PO SCH (09:35)
--- NOTE | 2021-04-20 10:53 | Discharge Summary ---
Providers - Providers Date of Admission: 04/06/21 20:34 Date of discharge: 04/20/21 Attending physician: APRIL GANDHI MD 04/06/21 17:49 Consult to Physician [CONS] Routine Comment: Consulting Provider: VANCE ZIEGLER Physician Instructions: Reason For Exam: medical management Consult to Wound/ET Nurse [CONS] Routine Reason For Exam: wound eval 04/07/21 05:48 Physical Therapy Evaluation and Treat [CONS] Routine Comment: Reason For Exam: difficuty walking 04/07/21 05:50 Consult to Dietitian/Nutrition [CONS] Routine Physician Instructions: Reason For Exam: Reason for Consult: Poor oral intake Primary care physician: WATER SKI ASSEMBLER Hospitalization Reason for admission: agitation Admitting Diagnosis: F31.9 - BIPOLAR DISORDER, UNSPECIFIED Condition: Stable Hospital course: The patient was provided inpatient psychiatric treatment with safe and supportive care, medication adjustment, adverse effect monitoring, medical evaluations, medical treatments, assessment and psycho-education. The patient's mood, cognition, behavior, moral support are improved and stabilized. St the time of discharge, the patient had no endangering behavior and no debilitating adverse effects. The patient agreed on potential consequences of no treatment and gave informed consent. Disposition: DC-01 TO HOME OR SELFCARE Time spent for discharge: 38 Allergies/Adverse Reactions: Allergies lithium Adverse Reaction (Unverified 04/06/21 17:18) Unknown Vital Signs: Last Vital Signs Temp 97.8 F 04/20/21 07:51 Pulse 113 H 04/20/21 07:51 Resp 18 04/20/21 07:51 BP 101/72 04/20/21 07:51 Pulse Ox 100 04/20/21 07:51 Last Lab: Laboratory Last Values WBC 6.3 K/mm3 (4.5-11.0) 04/07/21 12:56 RBC 3.39 M/mm3 (3.65-5.03) L 04/07/21 12:56 Hgb 9.8 gm/dl (10.1-14.3) L 04/07/21 12:56 Hct 30.1 % (30.3-42.9) L 04/07/21 12:56 MCV 89 fl (79-97) 04/07/21 12:56 MCH 29 pg (28-32) 04/07/21 12:56 MCHC 33 % (30-34) 04/07/21 12:56 RDW 18.4 % (13.2-15.2) H 04/07/21 12:56 Plt Count 402 K/mm3 (140-440) 04/07/21 12:56 Lymph % (Auto) 18.3 % (13.4-35.0) 04/07/21 12:56 [place] % (Auto) 7.3 % (0.0-7.3) 04/07/21 12:56 Eos % (Auto) 0.3 % (0.0-4.3) 04/07/21 12:56 Baso % (Auto) 0.3 % (0.0-1.8) 04/07/21 12:56 Lymph # (Auto) 1.2 K/mm3 (1.2-5.4) 04/07/21 12:56 [place] # (Auto) 0.5 K/mm3 (0.0-0.8) 04/07/21 12:56 Eos # (Auto) 0.0 K/mm3 (0.0-0.4) 04/07/21 12:56 Baso # (Auto) 0.0 K/mm3 (0.0-0.1) 04/07/21 12:56 Seg Neutrophils % 73.8 % (40.0-70.0) H 04/07/21 12:56 Seg Neutrophils # 4.7 K/mm3 (1.8-7.7) 04/07/21 12:56 Sodium 131 mmol/L (137-145) L 04/07/21 12:56 Potassium 3.6 mmol/L (3.6-5.0) 04/07/21 12:56 Chloride 97.3 mmol/L (98-107) L 04/07/21 12:56 Carbon Dioxide 21 mmol/L (22-30) L 04/07/21 12:56 Anion Gap 16 mmol/L 04/07/21 12:56 BUN 9 mg/dL (7-17) 04/07/21 12:56 Creatinine 0.7 mg/dL (0.6-1.2) 04/07/21 12:56 Estimated GFR > 60 ml/min 04/07/21 12:56 BUN/Creatinine Ratio 13 % 04/07/21 12:56 Glucose 181 mg/dL (65-100) H 04/07/21 12:56 POC Glucose 90 mg/dL (70-105) 04/06/21 21:28 Calcium 8.2 mg/dL (8.4-10.2) L 04/07/21 12:56 Total Bilirubin 0.20 mg/dL (0.1-1.2) 04/07/21 12:56 AST 23 units/L (5-40) 04/07/21 12:56 ALT 21 units/L (7-56) 04/07/21 12:56 Alkaline Phosphatase 334 units/L (35-129) H 04/07/21 12:56 Total Protein 5.3 g/dL (6.3-8.2) L 04/07/21 12:56 Albumin 2.5 g/dL (3.9-5) L 04/07/21 12:56 Albumin/Globulin Ratio 0.9 % 04/07/21 12:56 Core Measure Documentation - Palliative Care Palliative Care/ Comfort Measures: Not Applicable - Core Measures Any of the following diagnoses?: none Exam - Constitutional Vitals: Temp Pulse Resp BP Pulse Ox 97.8 F 113 H 18 101/72 100 04/20/21 07:51 04/20/21 07:51 04/20/21 07:51 04/20/21 07:51 04/20/21 07:51 General appearance: Present: no acute distress - EENT Eyes: Present: PERRL, EOM intact ENT: hearing intact, clear oral mucosa - Neck Neck: Present: normal ROM Plan Activity: advance as tolerated Weight Bearing Status: Weight Bear as Tolerated Care Plan Goals: Maintain good and stable mental health Plan of Treatment: The patient should be compliant with medications, not to use drugs and not to drink alcohol. The patient understands that if suicidal ideas, homicidal ideas, or any endangering thoughts arise, the patient should immediately seek for emergent assistance including but not limited to crisis hot line and emergency room. Follow up with outpatient Psychiatrist and PCP within 7 - 14 days of discharge. Assessment: Bipolar Disorder Follow up with: PRIMARY CARE, [Primary Care Provider] - 7 Days Prescriptions: DULoxetine [Cymbalta] 60 mg PO QDAY #60 capsule Mirtazapine 7.5 mg PO DAILY #30 tablet QUEtiapine [SEROquel] 250 mg PO TID #90 tablet
[2021-04-20] MEDS: MIRTAZAPINE 15 MG TAB PO SCH (21:21)
[2021-04-21] MEDS: LACTINEX CHEW TAB PO SCH ×2 (09:51→21:01)
[2021-04-21] MEDS: DOCUSATE SODIUM 100 MG CAP PO SCH (09:52)
[2021-04-21] MEDS: PANTOPRAZOLE 20 MG TAB PO SCH (09:52)
[2021-04-21] MEDS: QUEtiapine 100 MG TAB PO SCH ×3 (09:52→20:59)
[2021-04-21] MEDS: THIAMINE 100 MG TAB PO SCH (09:53)
[2021-04-21] MEDS: DULoxetine 30 MG CAP PO SCH ×2 (09:53→21:00)
[2021-04-21] MEDS: lamoTRIgine 100 MG TAB PO SCH ×3 (09:53→20:59)
[2021-04-21] MEDS: CHOLECALCIFEROL (VIT D3) 1000 UNIT (25 mcg) TAB PO SCH (09:53)
--- NOTE | 2021-04-21 09:57 | Discharge Summary ---
Providers - Providers Date of Admission: 04/06/21 20:34 Date of discharge: 04/21/21 Attending physician: APRIL GANDHI MD 04/06/21 17:49 Consult to Physician [CONS] Routine Comment: Consulting Provider: VANCE ZIEGLER Physician Instructions: Reason For Exam: medical management Consult to Wound/ET Nurse [CONS] Routine Reason For Exam: wound eval 04/07/21 05:48 Physical Therapy Evaluation and Treat [CONS] Routine Comment: Reason For Exam: difficuty walking 04/07/21 05:50 Consult to Dietitian/Nutrition [CONS] Routine Physician Instructions: Reason For Exam: Reason for Consult: Poor oral intake Primary care physician: SENIOR OUTSIDE SALES REPRESENTATIVE Hospitalization Reason for admission: agitation Admitting Diagnosis: F31.9 - BIPOLAR DISORDER, UNSPECIFIED Condition: Stable Hospital course: The patient was provided inpatient psychiatric treatment with safe and supportive care, medication adjustment, adverse effect monitoring, medical evaluations, medical treatments, assessment and psycho-education. The patient's mood, cognition, behavior, moral support are improved and stabilized. St the time of discharge, the patient had no endangering behavior and no debilitating adverse effects. The patient agreed on potential consequences of no treatment and gave informed consent. Disposition: DC-01 TO HOME OR SELFCARE Time spent for discharge: 38 Allergies/Adverse Reactions: Allergies lithium Adverse Reaction (Unverified 04/06/21 17:18) Unknown Vital Signs: Last Vital Signs Temp 98.0 F 04/20/21 19:45 Pulse 99 H 04/20/21 19:45 Resp 16 04/20/21 19:45 BP 124/74 04/20/21 19:45 Pulse Ox 99 04/20/21 19:45 Last Lab: Laboratory Last Values WBC 6.3 K/mm3 (4.5-11.0) 04/07/21 12:56 RBC 3.39 M/mm3 (3.65-5.03) L 04/07/21 12:56 Hgb 9.8 gm/dl (10.1-14.3) L 04/07/21 12:56 Hct 30.1 % (30.3-42.9) L 04/07/21 12:56 MCV 89 fl (79-97) 04/07/21 12:56 MCH 29 pg (28-32) 04/07/21 12:56 MCHC 33 % (30-34) 04/07/21 12:56 RDW 18.4 % (13.2-15.2) H 04/07/21 12:56 Plt Count 402 K/mm3 (140-440) 04/07/21 12:56 Lymph % (Auto) 18.3 % (13.4-35.0) 04/07/21 12:56 [place] % (Auto) 7.3 % (0.0-7.3) 04/07/21 12:56 Eos % (Auto) 0.3 % (0.0-4.3) 04/07/21 12:56 Baso % (Auto) 0.3 % (0.0-1.8) 04/07/21 12:56 Lymph # (Auto) 1.2 K/mm3 (1.2-5.4) 04/07/21 12:56 [place] # (Auto) 0.5 K/mm3 (0.0-0.8) 04/07/21 12:56 Eos # (Auto) 0.0 K/mm3 (0.0-0.4) 04/07/21 12:56 Baso # (Auto) 0.0 K/mm3 (0.0-0.1) 04/07/21 12:56 Seg Neutrophils % 73.8 % (40.0-70.0) H 04/07/21 12:56 Seg Neutrophils # 4.7 K/mm3 (1.8-7.7) 04/07/21 12:56 Sodium 131 mmol/L (137-145) L 04/07/21 12:56 Potassium 3.6 mmol/L (3.6-5.0) 04/07/21 12:56 Chloride 97.3 mmol/L (98-107) L 04/07/21 12:56 Carbon Dioxide 21 mmol/L (22-30) L 04/07/21 12:56 Anion Gap 16 mmol/L 04/07/21 12:56 BUN 9 mg/dL (7-17) 04/07/21 12:56 Creatinine 0.7 mg/dL (0.6-1.2) 04/07/21 12:56 Estimated GFR > 60 ml/min 04/07/21 12:56 BUN/Creatinine Ratio 13 % 04/07/21 12:56 Glucose 181 mg/dL (65-100) H 04/07/21 12:56 POC Glucose 90 mg/dL (70-105) 04/06/21 21:28 Calcium 8.2 mg/dL (8.4-10.2) L 04/07/21 12:56 Total Bilirubin 0.20 mg/dL (0.1-1.2) 04/07/21 12:56 AST 23 units/L (5-40) 04/07/21 12:56 ALT 21 units/L (7-56) 04/07/21 12:56 Alkaline Phosphatase 334 units/L (35-129) H 04/07/21 12:56 Total Protein 5.3 g/dL (6.3-8.2) L 04/07/21 12:56 Albumin 2.5 g/dL (3.9-5) L 04/07/21 12:56 Albumin/Globulin Ratio 0.9 % 04/07/21 12:56 Coronavirus (PCR) Negative (Negative) 04/19/21 08:27 Core Measure Documentation - Palliative Care Palliative Care/ Comfort Measures: Not Applicable - Core Measures Any of the following diagnoses?: none Exam - Constitutional Vitals: Temp Pulse Resp BP Pulse Ox 98.0 F 99 H 16 124/74 99 04/20/21 19:45 04/20/21 19:45 04/20/21 19:45 04/20/21 19:45 04/20/21 19:45 General appearance: Present: no acute distress - EENT Eyes: Present: PERRL, EOM intact ENT: hearing intact, clear oral mucosa - Neck Neck: Present: supple, normal ROM - Respiratory Respiratory effort: normal Plan Activity: advance as tolerated Weight Bearing Status: Weight Bear as Tolerated Care Plan Goals: Maintain good and stable mental health Plan of Treatment: The patient should be compliant with medications, not to use drugs and not to drink alcohol. The patient understands that if suicidal ideas, homicidal ideas, or any endangering thoughts arise, the patient should immediately seek for emergent assistance including but not limited to crisis hot line and emergency room. Follow up with outpatient Psychiatrist and PCP within 7 - 14 days of discharge. Assessment: Bipolar Disorder Follow up with: PRIMARY CARE, [Primary Care Provider] - 7 Days Prescriptions: DULoxetine [Cymbalta] 60 mg PO QDAY #60 capsule Mirtazapine 7.5 mg PO DAILY #30 tablet QUEtiapine [SEROquel] 250 mg PO TID #90 tablet
[2021-04-21] MEDS: ENOXAPARIN 40 MG/0.4 ML INJ SUB-Q SCH (10:00)
[2021-04-21] MEDS: MIRTAZAPINE 15 MG TAB PO SCH (21:00)
[2021-04-22] MEDS: DULoxetine 30 MG CAP PO SCH ×2 (11:08→21:27)
[2021-04-22] MEDS: CHOLECALCIFEROL (VIT D3) 1000 UNIT (25 mcg) TAB PO SCH (11:08)
[2021-04-22] MEDS: THIAMINE 100 MG TAB PO SCH (11:08)
[2021-04-22] MEDS: LACTINEX CHEW TAB PO SCH ×2 (11:08→21:27)
[2021-04-22] MEDS: PANTOPRAZOLE 20 MG TAB PO SCH (11:09)
[2021-04-22] MEDS: ENOXAPARIN 40 MG/0.4 ML INJ SUB-Q SCH (11:09)
[2021-04-22] MEDS: DOCUSATE SODIUM 100 MG CAP PO SCH (11:10)
[2021-04-22] MEDS: QUEtiapine 100 MG TAB PO SCH ×3 (11:15→21:26)
[2021-04-22] MEDS: lamoTRIgine 100 MG TAB PO SCH ×3 (11:18→21:26)
[2021-04-22] MEDS: MIRTAZAPINE 15 MG TAB PO SCH (21:26)
[2021-04-23] MEDS: PANTOPRAZOLE 20 MG TAB PO SCH (09:40)
[2021-04-23] MEDS: LACTINEX CHEW TAB PO SCH ×2 (09:40→22:26)
[2021-04-23] MEDS: CHOLECALCIFEROL (VIT D3) 1000 UNIT (25 mcg) TAB PO SCH (09:40)
[2021-04-23] MEDS: DULoxetine 30 MG CAP PO SCH ×2 (09:40→22:25)
[2021-04-23] MEDS: QUEtiapine 100 MG TAB PO SCH ×3 (09:40→22:23)
[2021-04-23] MEDS: THIAMINE 100 MG TAB PO SCH (09:41)
[2021-04-23] MEDS: lamoTRIgine 100 MG TAB PO SCH ×3 (09:41→22:23)
[2021-04-23] MEDS: ENOXAPARIN 40 MG/0.4 ML INJ SUB-Q SCH (09:41)
[2021-04-23] MEDS: DOCUSATE SODIUM 100 MG CAP PO SCH (09:45)
--- NOTE | 2021-04-23 11:37 | Progress Note ---
Subjective Date of service: 04/23/21 Principal diagnosis: Bipolar disorder Subjective Comment: Per Nurse Note: 1530 In the pt told staff that she was having auditory hallucinations, hearing voices. This afternoon, pt,. delusional, wants to give staff 3 million dollars, she had been talking, disorganized thoughts and made a few attempts to get out her Kase[place] chair without help. Staff closely monitoring pt. Patient was seen this morning in the activity room. Patient continues to be confused. Patient states mood as fine. She states sleep and appetite as good. She denies suicidal/ homicidal ideation. Patient was tearful. REVIEW OF SYSTEMS Constitutional: Negative for weight loss ENT: Negative for stridor Respiratory: Negative for cough or hemoptysis All other systems reviewed and are negative MENTAL STATUS EXAMINATION General Appearance and Behavior: Age appropriate, good hygiene, wearing appropriate clothes, fair eye contact, cooperative with questioning. Cooperation: Partially withdrawn Psychomotor Behavior: Psychomotor normal Mood: fine Affect and affective range: Congruent with mood Thought Process: Illogical, Thought Content: None Speech: Normal rate and volume Intellectual Functioning: Average Suicidal Ideation: denies Homicidal Ideation:denies Impulse Control: Impaired Insight and Judgment: Limited insight and judgment Memory: Short-term memory impaired Attention: Divided attention impaired Orientation: Alert, oriented to self Assessment and Plan (1) Bipolar disorder with psychotic features Current Visit: Yes Status: Acute Treatment Patient admitted for inpatient psychiatric evaluation, medication adjustment and close monitoring The patient's behavior, mood, sleep and appetite will be closely monitored. Patient enrolled in individual and group therapeutic sessions and encouraged to attend. Patient provided with a safe and structured environment. Patient's physical health needs will be addressed by the Hospitalist. Hospitalist Consulted Labs including CBC, CMP, Lipid profile and Hemoglobin A1C levels ordered for baseline reference Social Assessment will be completed and the Tube Maker will work with patient and family to ensure a suitable and safe disposition Medication adjustment will be made as clinically indicated Start Mirtazepine 7.5mg po qhs to increase appetite and improve sleep Usual Wellness Advent/Preservation: - Start Trazodone 50 mg po QHS & 50 mg po QHS PRN between 10 PM & 2 AM for insomnia - Start Melatonin 5 mg po QHS to promote circadian rhythm - Start [place]-3 for brain health, reduce impulsivity, and as adjunctive treatment for mood disorder, continue upon discharge given overall benefits. - Start B1 prophylaxis with 200 mg po for 5 days The patient agreed on the treatment plan, understood the risk, benefit, alternative treatment, potential consequence of no treatment, and gave informed consent. Estimated days: 2 Post hospital care: primary care provider, psychiatric provider Medications and Allergies Medications and Allergies Allergies Allergy/AdvReac Type Severity Reaction Status Date / Time lithium AdvReac Unknown Unverified 04/06/21 17:18 Home Medications Medication Instructions Recorded Confirmed Last Taken Type Amoxicillin [Trimox CAP] 1,000 mg PO BID 04/07/21 04/07/21 Unknown History Enoxaparin 40 mg SUB-Q DAILY 04/07/21 04/07/21 Unknown History Lactobacillus Acidophilus 2 cap PO BID 04/07/21 04/07/21 Unknown History [Acidophilus Lactobacilli] Omeprazole 20 mg PO DAILY 04/07/21 04/07/21 Unknown History Oxycodone HCl [oxyCODONE] 10 mg PO Q6HR PRN 04/07/21 04/07/21 Unknown History QUEtiapine [SEROquel] 25 mg PO Q6HR PRN 04/07/21 04/07/21 Unknown History Thiamine [Vitamin B-1] 100 mg PO DAILY 04/07/21 04/07/21 Unknown History bisacodyL [Dulcolax tab] 10 mg PO DAILY PRN 04/07/21 04/07/21 Unknown History lamoTRIgine [LaMICtal] 100 mg PO BID 04/07/21 04/07/21 Unknown History traMADoL [Ultram 50 MG tab] 50 mg PO Q12HR PRN 04/07/21 04/07/21 Unknown History Cholecalciferol Vit D3 [Vitamin D3 1,000 unit PO DAILY tablet 04/19/21 Unknown Rx 1,000 UNIT TAB] DULoxetine [Cymbalta] 60 mg PO QDAY #60 capsule 04/19/21 Unknown Rx Docusate Sodium [Colace CAP] 100 mg PO DAILY capsule 04/19/21 Unknown Rx Mirtazapine 7.5 mg PO DAILY #30 tablet 04/19/21 Unknown Rx QUEtiapine [SEROquel] 250 mg PO TID #90 tablet 04/19/21 Unknown Rx Active Meds: Active Medications Bisacodyl (Bisacodyl 5 Mg Tab) 10 mg PO DAILY PRN PRN Reason: Constipation Cholecalciferol (Cholecalciferol (Vit D3) 1000 Unit (25 Mcg) Tab) 1,000 unit PO DAILY [facility] Last Admin: 04/23/21 09:40 Dose: 1,000 unit Documented by: Docusate Sodium (Docusate Sodium 100 Mg Cap) 100 mg PO DAILY [facility] Last Admin: 04/23/21 09:45 Dose: Not Given Documented by: Duloxetine HCl (Duloxetine 30 Mg Cap) 60 mg PO BID [facility] Last Admin: 04/23/21 09:40 Dose: 60 mg Documented by: Enoxaparin Sodium (Enoxaparin 40 Mg/0.4 Ml Inj) 40 mg SUB-Q DAILY [facility]; Protocol Last Admin: 04/23/21 09:41 Dose: 40 mg Documented by: Lactobacillus Acidophilus (Lactinex Chew Tab) 2 each PO BID [facility] Last Admin: 04/23/21 09:40 Dose: 2 each Documented by: Lamotrigine (Lamotrigine 100 Mg Tab) 100 mg PO TID [facility] Last Admin: 04/23/21 09:41 Dose: 100 mg Documented by: Mirtazapine (Mirtazapine 15 Mg Tab) 7.5 mg PO QHS [facility] Last Admin: 04/22/21 21:26 Dose: 7.5 mg Documented by: Oxycodone HCl (Oxycodone 5 Mg Tab) 10 mg PO Q12H PRN PRN Reason: Pain, Moderate (4-6) Last Admin: 04/18/21 09:12 Dose: 10 mg Documented by: Pantoprazole Sodium (Pantoprazole 20 Mg Tab) 20 mg PO QDAY [facility] Last Admin: 04/23/21 09:40 Dose: 20 mg Documented by: Quetiapine Fumarate (Quetiapine 100 Mg Tab) 250 mg PO TID [facility] Last Admin: 04/23/21 09:40 Dose: 250 mg Documented by: Thiamine HCl (Thiamine 100 Mg Tab) 100 mg PO DAILY [facility] Last Admin: 04/23/21 09:41 Dose: 100 mg Documented by: Results - Results Labs/Vitals: Laboratory Last Values WBC 6.3 K/mm3 (4.5-11.0) 04/07/21 12:56 RBC 3.39 M/mm3 (3.65-5.03) L 04/07/21 12:56 Hgb 9.8 gm/dl (10.1-14.3) L 04/07/21 12:56 Hct 30.1 % (30.3-42.9) L 04/07/21 12:56 MCV 89 fl (79-97) 04/07/21 12:56 MCH 29 pg (28-32) 04/07/21 12:56 MCHC 33 % (30-34) 04/07/21 12:56 RDW 18.4 % (13.2-15.2) H 04/07/21 12:56 Plt Count 402 K/mm3 (140-440) 04/07/21 12:56 Lymph % (Auto) 18.3 % (13.4-35.0) 04/07/21 12:56 [place] % (Auto) 7.3 % (0.0-7.3) 04/07/21 12:56 Eos % (Auto) 0.3 % (0.0-4.3) 04/07/21 12:56 Baso % (Auto) 0.3 % (0.0-1.8) 04/07/21 12:56 Lymph # (Auto) 1.2 K/mm3 (1.2-5.4) 04/07/21 12:56 [place] # (Auto) 0.5 K/mm3 (0.0-0.8) 04/07/21 12:56 Eos # (Auto) 0.0 K/mm3 (0.0-0.4) 04/07/21 12:56 Baso # (Auto) 0.0 K/mm3 (0.0-0.1) 04/07/21 12:56 Seg Neutrophils % 73.8 % (40.0-70.0) H 04/07/21 12:56 Seg Neutrophils # 4.7 K/mm3 (1.8-7.7) 04/07/21 12:56 Sodium 131 mmol/L (137-145) L 04/07/21 12:56 Potassium 3.6 mmol/L (3.6-5.0) 04/07/21 12:56 Chloride 97.3 mmol/L (98-107) L 04/07/21 12:56 Carbon Dioxide 21 mmol/L (22-30) L 04/07/21 12:56 Anion Gap 16 mmol/L 04/07/21 12:56 BUN 9 mg/dL (7-17) 04/07/21 12:56 Creatinine 0.7 mg/dL (0.6-1.2) 04/07/21 12:56 Estimated GFR > 60 ml/min 04/07/21 12:56 BUN/Creatinine Ratio 13 % 04/07/21 12:56 Glucose 181 mg/dL (65-100) H 04/07/21 12:56 POC Glucose 90 mg/dL (70-105) 04/06/21 21:28 Calcium 8.2 mg/dL (8.4-10.2) L 04/07/21 12:56 Total Bilirubin 0.20 mg/dL (0.1-1.2) 04/07/21 12:56 AST 23 units/L (5-40) 04/07/21 12:56 ALT 21 units/L (7-56) 04/07/21 12:56 Alkaline Phosphatase 334 units/L (35-129) H 04/07/21 12:56 Total Protein 5.3 g/dL (6.3-8.2) L 04/07/21 12:56 Albumin 2.5 g/dL (3.9-5) L 04/07/21 12:56 Albumin/Globulin Ratio 0.9 % 04/07/21 12:56 Coronavirus (PCR) Negative (Negative) 04/19/21 08:27 Last Vital Signs Temp 98.1 F 04/23/21 08:45 Pulse 95 H 04/23/21 08:45 Resp 18 04/23/21 08:45 BP 112/63 04/23/21 08:45 Pulse Ox 99 04/23/21 08:45
[2021-04-23] MEDS: MIRTAZAPINE 15 MG TAB PO SCH (22:25)
[2021-04-24] MEDS: PANTOPRAZOLE 20 MG TAB PO SCH (09:39)
[2021-04-24] MEDS: ENOXAPARIN 40 MG/0.4 ML INJ SUB-Q SCH (09:39)
[2021-04-24] MEDS: QUEtiapine 100 MG TAB PO SCH ×3 (09:39→21:51)
[2021-04-24] MEDS: LACTINEX CHEW TAB PO SCH ×2 (09:40→21:49)
[2021-04-24] MEDS: THIAMINE 100 MG TAB PO SCH (09:40)
[2021-04-24] MEDS: DULoxetine 30 MG CAP PO SCH ×2 (09:40→21:51)
[2021-04-24] MEDS: CHOLECALCIFEROL (VIT D3) 1000 UNIT (25 mcg) TAB PO SCH (09:40)
[2021-04-24] MEDS: lamoTRIgine 100 MG TAB PO SCH ×3 (09:40→21:50)
[2021-04-24] MEDS: DOCUSATE SODIUM 100 MG CAP PO SCH (09:41)
--- NOTE | 2021-04-24 09:51 | Progress Note ---
Subjective Date of service: 04/24/21 Principal diagnosis: Bipolar disorder Subjective Comment: Per Nurse Note: Last evening the patient was calm and cooperative. She denies si/hi/ah/vh. Her appetite is fair and she is medication compliant. Overnight she rested quietly. Patient slept 9 hours. Will continue to monitor patient for safety. Patient was seen this morning. Patient continues to be confused; patient was loud and stating " Hurry up." When asked she states " I'm in a hurry to see my friends." Patient states mood as fine. She states sleep and appetite as good. She denies suicidal/ homicidal ideation. REVIEW OF SYSTEMS Constitutional: Negative for weight loss ENT: Negative for stridor Respiratory: Negative for cough or hemoptysis All other systems reviewed and are negative MENTAL STATUS EXAMINATION General Appearance and Behavior: Age appropriate, good hygiene, wearing appropriate clothes, fair eye contact, cooperative with questioning. Cooperation: Partially withdrawn Psychomotor Behavior: Psychomotor normal Mood: "fine" Affect and affective range: incongruent with mood Thought Process: Illogical, Thought Content: None Speech: Normal rate and exaggerated Intellectual Functioning: Average Suicidal Ideation: denies Homicidal Ideation:denies Impulse Control: Impaired Insight and Judgment: Limited insight and judgment Memory: Short-term memory impaired Attention: Divided attention impaired Orientation: Alert, oriented to self Assessment and Plan (1) Bipolar disorder with psychotic features Current Visit: Yes Status: Acute Treatment Patient admitted for inpatient psychiatric evaluation, medication adjustment and close monitoring The patient's behavior, mood, sleep and appetite will be closely monitored. Patient enrolled in individual and group therapeutic sessions and encouraged to attend. Patient provided with a safe and structured environment. Patient's physical health needs will be addressed by the Hospitalist. Hospitalist Consulted Labs including CBC, CMP, Lipid profile and Hemoglobin A1C levels ordered for baseline reference Social Assessment will be completed and the Mold Mechanic will work with patient and family to ensure a suitable and safe disposition Medication adjustment will be made as clinically indicated Continue- Mirtazepine 7.5mg po qhs to increase appetite and improve sleep Continue Lamotrigine 100mg TID Usual Wellness Denominational/Preservation: - Start Trazodone 50 mg po QHS & 50 mg po QHS PRN between 10 PM & 2 AM for insomnia - Start Melatonin 5 mg po QHS to promote circadian rhythm - Start [place]-3 for brain health, reduce impulsivity, and as adjunctive treatment for mood disorder, continue upon discharge given overall benefits. - Start B1 prophylaxis with 200 mg po for 5 days The patient agreed on the treatment plan, understood the risk, benefit, alternative treatment, potential consequence of no treatment, and gave informed consent. Estimated days: 2 Post hospital care: primary care provider, psychiatric provider Medications and Allergies Medications and Allergies Allergies Allergy/AdvReac Type Severity Reaction Status Date / Time lithium AdvReac Intermediate Unknown Verified 04/23/21 23:14 Home Medications Medication Instructions Recorded Confirmed Last Taken Type Amoxicillin [Trimox CAP] 1,000 mg PO BID 04/07/21 04/07/21 Unknown History Enoxaparin 40 mg SUB-Q DAILY 04/07/21 04/07/21 Unknown History Lactobacillus Acidophilus 2 cap PO BID 04/07/21 04/07/21 Unknown History [Acidophilus Lactobacilli] Omeprazole 20 mg PO DAILY 04/07/21 04/07/21 Unknown History Oxycodone HCl [oxyCODONE] 10 mg PO Q6HR PRN 04/07/21 04/07/21 Unknown History QUEtiapine [SEROquel] 25 mg PO Q6HR PRN 04/07/21 04/07/21 Unknown History Thiamine [Vitamin B-1] 100 mg PO DAILY 04/07/21 04/07/21 Unknown History bisacodyL [Dulcolax tab] 10 mg PO DAILY PRN 04/07/21 04/07/21 Unknown History lamoTRIgine [LaMICtal] 100 mg PO BID 04/07/21 04/07/21 Unknown History traMADoL [Ultram 50 MG tab] 50 mg PO Q12HR PRN 04/07/21 04/07/21 Unknown History Cholecalciferol Vit D3 [Vitamin D3 1,000 unit PO DAILY tablet 04/19/21 Unknown Rx 1,000 UNIT TAB] DULoxetine [Cymbalta] 60 mg PO QDAY #60 capsule 04/19/21 Unknown Rx Docusate Sodium [Colace CAP] 100 mg PO DAILY capsule 04/19/21 Unknown Rx Mirtazapine 7.5 mg PO DAILY #30 tablet 04/19/21 Unknown Rx QUEtiapine [SEROquel] 250 mg PO TID #90 tablet 04/19/21 Unknown Rx Active Meds: Active Medications Bisacodyl (Bisacodyl 5 Mg Tab) 10 mg PO DAILY PRN PRN Reason: Constipation Cholecalciferol (Cholecalciferol (Vit D3) 1000 Unit (25 Mcg) Tab) 1,000 unit PO DAILY [facility] Last Admin: 04/24/21 09:40 Dose: 1,000 unit Documented by: Docusate Sodium (Docusate Sodium 100 Mg Cap) 100 mg PO DAILY [facility] Last Admin: 04/24/21 09:41 Dose: 100 mg Documented by: Duloxetine HCl (Duloxetine 30 Mg Cap) 60 mg PO BID [facility] Last Admin: 04/24/21 09:40 Dose: 60 mg Documented by: Enoxaparin Sodium (Enoxaparin 40 Mg/0.4 Ml Inj) 40 mg SUB-Q DAILY [facility]; Protocol Last Admin: 04/24/21 09:39 Dose: 40 mg Documented by: Lactobacillus Acidophilus (Lactinex Chew Tab) 2 each PO BID [facility] Last Admin: 04/24/21 09:40 Dose: 2 each Documented by: Lamotrigine (Lamotrigine 100 Mg Tab) 100 mg PO TID [facility] Last Admin: 04/24/21 09:40 Dose: 100 mg Documented by: Mirtazapine (Mirtazapine 15 Mg Tab) 7.5 mg PO QHS [facility] Last Admin: 04/23/21 22:25 Dose: 7.5 mg Documented by: Oxycodone HCl (Oxycodone 5 Mg Tab) 10 mg PO Q12H PRN PRN Reason: Pain, Moderate (4-6) Last Admin: 04/18/21 09:12 Dose: 10 mg Documented by: Pantoprazole Sodium (Pantoprazole 20 Mg Tab) 20 mg PO QDAY [facility] Last Admin: 04/24/21 09:39 Dose: 20 mg Documented by: Quetiapine Fumarate (Quetiapine 100 Mg Tab) 250 mg PO TID [facility] Last Admin: 04/24/21 09:39 Dose: 250 mg Documented by: Thiamine HCl (Thiamine 100 Mg Tab) 100 mg PO DAILY [facility] Last Admin: 04/24/21 09:40 Dose: 100 mg Documented by: Results - Results Labs/Vitals: Laboratory Last Values WBC 6.3 K/mm3 (4.5-11.0) 04/07/21 12:56 RBC 3.39 M/mm3 (3.65-5.03) L 04/07/21 12:56 Hgb 9.8 gm/dl (10.1-14.3) L 04/07/21 12:56 Hct 30.1 % (30.3-42.9) L 04/07/21 12:56 MCV 89 fl (79-97) 04/07/21 12:56 MCH 29 pg (28-32) 04/07/21 12:56 MCHC 33 % (30-34) 04/07/21 12:56 RDW 18.4 % (13.2-15.2) H 04/07/21 12:56 Plt Count 402 K/mm3 (140-440) 04/07/21 12:56 Lymph % (Auto) 18.3 % (13.4-35.0) 04/07/21 12:56 [place] % (Auto) 7.3 % (0.0-7.3) 04/07/21 12:56 Eos % (Auto) 0.3 % (0.0-4.3) 04/07/21 12:56 Baso % (Auto) 0.3 % (0.0-1.8) 04/07/21 12:56 Lymph # (Auto) 1.2 K/mm3 (1.2-5.4) 04/07/21 12:56 [place] # (Auto) 0.5 K/mm3 (0.0-0.8) 04/07/21 12:56 Eos # (Auto) 0.0 K/mm3 (0.0-0.4) 04/07/21 12:56 Baso # (Auto) 0.0 K/mm3 (0.0-0.1) 04/07/21 12:56 Seg Neutrophils % 73.8 % (40.0-70.0) H 04/07/21 12:56 Seg Neutrophils # 4.7 K/mm3 (1.8-7.7) 04/07/21 12:56 Sodium 131 mmol/L (137-145) L 04/07/21 12:56 Potassium 3.6 mmol/L (3.6-5.0) 04/07/21 12:56 Chloride 97.3 mmol/L (98-107) L 04/07/21 12:56 Carbon Dioxide 21 mmol/L (22-30) L 04/07/21 12:56 Anion Gap 16 mmol/L 04/07/21 12:56 BUN 9 mg/dL (7-17) 04/07/21 12:56 Creatinine 0.7 mg/dL (0.6-1.2) 04/07/21 12:56 Estimated GFR > 60 ml/min 04/07/21 12:56 BUN/Creatinine Ratio 13 % 04/07/21 12:56 Glucose 181 mg/dL (65-100) H 04/07/21 12:56 POC Glucose 90 mg/dL (70-105) 04/06/21 21:28 Calcium 8.2 mg/dL (8.4-10.2) L 04/07/21 12:56 Total Bilirubin 0.20 mg/dL (0.1-1.2) 04/07/21 12:56 AST 23 units/L (5-40) 04/07/21 12:56 ALT 21 units/L (7-56) 04/07/21 12:56 Alkaline Phosphatase 334 units/L (35-129) H 04/07/21 12:56 Total Protein 5.3 g/dL (6.3-8.2) L 04/07/21 12:56 Albumin 2.5 g/dL (3.9-5) L 04/07/21 12:56 Albumin/Globulin Ratio 0.9 % 04/07/21 12:56 Coronavirus (PCR) Negative (Negative) 04/19/21 08:27 Last Vital Signs Temp 98.0 F 04/24/21 06:37 Pulse 100 H 04/24/21 06:37 Resp 16 04/24/21 06:37 BP 121/76 04/24/21 06:37 Pulse Ox 99 04/24/21 06:37
[2021-04-24] MEDS: MIRTAZAPINE 15 MG TAB PO SCH (21:50)
--- NOTE | 2021-04-25 09:28 | Progress Note ---
Subjective Date of service: 04/25/21 Principal diagnosis: Bipolar disorder Subjective Comment: Per Nurse Note: Last evening the patient spent in her room. She presented as confused and disoriented. She could be reoriented when having a conversation with her. She denies si/hi/ah/vh. Her appetite is fair and she was medication compliant with much encouragement. She was restless through the evening. Overnight the patient continued to be restless. She did not go to sleep until 4 am. At times she would call out "Help me." She was made comfortable and reoriented which would comfort her for awhile. Will continue to monitor patient for safety. Patient was seen this morning. Patient continues to be confused; patient was loud and stating " Hurry up." When asked she states " I'm in a hurry to see my friends." Patient states mood as fine. She states sleep and appetite as good. She denies suicidal/ homicidal ideation. The patient was seen resting quietly in bed. Patient looks tired and sleepy. Patient reports doing well. States mood as " good." She denies any current suicidal/homicidal and denies Hallucinations. REVIEW OF SYSTEMS Constitutional: Negative for weight loss ENT: Negative for stridor Respiratory: Negative for cough or hemoptysis All other systems reviewed and are negative MENTAL STATUS EXAMINATION General Appearance and Behavior: Age appropriate, good hygiene, wearing appropriate clothes, fair eye contact, cooperative with questioning. Cooperation: Partially withdrawn Psychomotor Behavior: Psychomotor normal Mood: "good" Affect and affective range: incongruent with mood Thought Process: Illogical, Thought Content: None Speech: Normal rate and exaggerated Intellectual Functioning: Average Suicidal Ideation: denies Homicidal Ideation:denies Impulse Control: Impaired Insight and Judgment: Limited insight and judgment Memory: Short-term memory impaired Attention: Divided attention impaired Orientation: Alert, oriented to self Assessment and Plan (1) Bipolar disorder with psychotic features Current Visit: Yes Status: Acute Treatment Patient admitted for inpatient psychiatric evaluation, medication adjustment and close monitoring The patient's behavior, mood, sleep and appetite will be closely monitored. Patient enrolled in individual and group therapeutic sessions and encouraged to attend. Patient provided with a safe and structured environment. Patient's physical health needs will be addressed by the Hospitalist. Hospitalist Consulted Labs including CBC, CMP, Lipid profile and Hemoglobin A1C levels ordered for baseline reference Social Assessment will be completed and the Orthopedic Nurse Practitioner will work with patient and family to ensure a suitable and safe disposition Medication adjustment will be made as clinically indicated Continue- Mirtazepine 7.5mg po qhs to increase appetite and improve sleep Continue Lamotrigine 100mg TID Usual Wellness Druze/Preservation: - Start Trazodone 50 mg po QHS & 50 mg po QHS PRN between 10 PM & 2 AM for insomnia - Start Melatonin 5 mg po QHS to promote circadian rhythm - Start [place]-3 for brain health, reduce impulsivity, and as adjunctive treatment for mood disorder, continue upon discharge given overall benefits. - Start B1 prophylaxis with 200 mg po for 5 days The patient agreed on the treatment plan, understood the risk, benefit, alternative treatment, potential consequence of no treatment, and gave informed consent. Estimated days: 2 Post hospital care: primary care provider, psychiatric provider Medications and Allergies Medications and Allergies Allergies Allergy/AdvReac Type Severity Reaction Status Date / Time lithium AdvReac Intermediate Unknown Verified 04/23/21 23:14 Home Medications Medication Instructions Recorded Confirmed Last Taken Type Amoxicillin [Trimox CAP] 1,000 mg PO BID 04/07/21 04/07/21 Unknown History Enoxaparin 40 mg SUB-Q DAILY 04/07/21 04/07/21 Unknown History Lactobacillus Acidophilus 2 cap PO BID 04/07/21 04/07/21 Unknown History [Acidophilus Lactobacilli] Omeprazole 20 mg PO DAILY 04/07/21 04/07/21 Unknown History Oxycodone HCl [oxyCODONE] 10 mg PO Q6HR PRN 04/07/21 04/07/21 Unknown History QUEtiapine [SEROquel] 25 mg PO Q6HR PRN 04/07/21 04/07/21 Unknown History Thiamine [Vitamin B-1] 100 mg PO DAILY 04/07/21 04/07/21 Unknown History bisacodyL [Dulcolax tab] 10 mg PO DAILY PRN 04/07/21 04/07/21 Unknown History lamoTRIgine [LaMICtal] 100 mg PO BID 04/07/21 04/07/21 Unknown History traMADoL [Ultram 50 MG tab] 50 mg PO Q12HR PRN 04/07/21 04/07/21 Unknown History Cholecalciferol Vit D3 [Vitamin D3 1,000 unit PO DAILY tablet 04/19/21 Unknown Rx 1,000 UNIT TAB] DULoxetine [Cymbalta] 60 mg PO QDAY #60 capsule 04/19/21 Unknown Rx Docusate Sodium [Colace CAP] 100 mg PO DAILY capsule 04/19/21 Unknown Rx Mirtazapine 7.5 mg PO DAILY #30 tablet 04/19/21 Unknown Rx QUEtiapine [SEROquel] 250 mg PO TID #90 tablet 04/19/21 Unknown Rx Active Meds: Active Medications Bisacodyl (Bisacodyl 5 Mg Tab) 10 mg PO DAILY PRN PRN Reason: Constipation Cholecalciferol (Cholecalciferol (Vit D3) 1000 Unit (25 Mcg) Tab) 1,000 unit PO DAILY [facility] Last Admin: 04/24/21 09:40 Dose: 1,000 unit Documented by: Docusate Sodium (Docusate Sodium 100 Mg Cap) 100 mg PO DAILY [facility] Last Admin: 04/24/21 09:41 Dose: 100 mg Documented by: Duloxetine HCl (Duloxetine 30 Mg Cap) 60 mg PO BID [facility] Last Admin: 04/24/21 21:51 Dose: 60 mg Documented by: Enoxaparin Sodium (Enoxaparin 40 Mg/0.4 Ml Inj) 40 mg SUB-Q DAILY [facility]; Protocol Last Admin: 04/24/21 09:39 Dose: 40 mg Documented by: Lactobacillus Acidophilus (Lactinex Chew Tab) 2 each PO BID [facility] Last Admin: 04/24/21 21:49 Dose: 2 each Documented by: Lamotrigine (Lamotrigine 100 Mg Tab) 100 mg PO TID [facility] Last Admin: 04/24/21 21:50 Dose: 100 mg Documented by: Mirtazapine (Mirtazapine 15 Mg Tab) 7.5 mg PO QHS [facility] Last Admin: 04/24/21 21:50 Dose: 7.5 mg Documented by: Oxycodone HCl (Oxycodone 5 Mg Tab) 10 mg PO Q12H PRN PRN Reason: Pain, Moderate (4-6) Last Admin: 04/18/21 09:12 Dose: 10 mg Documented by: Pantoprazole Sodium (Pantoprazole 20 Mg Tab) 20 mg PO QDAY [facility] Last Admin: 04/24/21 09:39 Dose: 20 mg Documented by: Quetiapine Fumarate (Quetiapine 100 Mg Tab) 250 mg PO TID [facility] Last Admin: 04/24/21 21:51 Dose: 250 mg Documented by: Thiamine HCl (Thiamine 100 Mg Tab) 100 mg PO DAILY [facility] Last Admin: 04/24/21 09:40 Dose: 100 mg Documented by: Results - Results Labs/Vitals: Laboratory Last Values WBC 6.3 K/mm3 (4.5-11.0) 04/07/21 12:56 RBC 3.39 M/mm3 (3.65-5.03) L 04/07/21 12:56 Hgb 9.8 gm/dl (10.1-14.3) L 04/07/21 12:56 Hct 30.1 % (30.3-42.9) L 04/07/21 12:56 MCV 89 fl (79-97) 04/07/21 12:56 MCH 29 pg (28-32) 04/07/21 12:56 MCHC 33 % (30-34) 04/07/21 12:56 RDW 18.4 % (13.2-15.2) H 04/07/21 12:56 Plt Count 402 K/mm3 (140-440) 04/07/21 12:56 Lymph % (Auto) 18.3 % (13.4-35.0) 04/07/21 12:56 [place] % (Auto) 7.3 % (0.0-7.3) 04/07/21 12:56 Eos % (Auto) 0.3 % (0.0-4.3) 04/07/21 12:56 Baso % (Auto) 0.3 % (0.0-1.8) 04/07/21 12:56 Lymph # (Auto) 1.2 K/mm3 (1.2-5.4) 04/07/21 12:56 [place] # (Auto) 0.5 K/mm3 (0.0-0.8) 04/07/21 12:56 Eos # (Auto) 0.0 K/mm3 (0.0-0.4) 04/07/21 12:56 Baso # (Auto) 0.0 K/mm3 (0.0-0.1) 04/07/21 12:56 Seg Neutrophils % 73.8 % (40.0-70.0) H 04/07/21 12:56 Seg Neutrophils # 4.7 K/mm3 (1.8-7.7) 04/07/21 12:56 Sodium 131 mmol/L (137-145) L 04/07/21 12:56 Potassium 3.6 mmol/L (3.6-5.0) 04/07/21 12:56 Chloride 97.3 mmol/L (98-107) L 04/07/21 12:56 Carbon Dioxide 21 mmol/L (22-30) L 04/07/21 12:56 Anion Gap 16 mmol/L 04/07/21 12:56 BUN 9 mg/dL (7-17) 04/07/21 12:56 Creatinine 0.7 mg/dL (0.6-1.2) 04/07/21 12:56 Estimated GFR > 60 ml/min 04/07/21 12:56 BUN/Creatinine Ratio 13 % 04/07/21 12:56 Glucose 181 mg/dL (65-100) H 04/07/21 12:56 POC Glucose 90 mg/dL (70-105) 04/06/21 21:28 Calcium 8.2 mg/dL (8.4-10.2) L 04/07/21 12:56 Total Bilirubin 0.20 mg/dL (0.1-1.2) 04/07/21 12:56 AST 23 units/L (5-40) 04/07/21 12:56 ALT 21 units/L (7-56) 04/07/21 12:56 Alkaline Phosphatase 334 units/L (35-129) H 04/07/21 12:56 Total Protein 5.3 g/dL (6.3-8.2) L 04/07/21 12:56 Albumin 2.5 g/dL (3.9-5) L 04/07/21 12:56 Albumin/Globulin Ratio 0.9 % 04/07/21 12:56 Coronavirus (PCR) Negative (Negative) 04/19/21 08:27 Last Vital Signs Temp 97.6 F 04/24/21 20:03 Pulse 104 H 04/24/21 20:03 Resp 16 04/24/21 20:03 BP 125/74 04/24/21 20:03 Pulse Ox 98 04/24/21 20:03
[2021-04-25] MEDS: PANTOPRAZOLE 20 MG TAB PO SCH (10:46)
[2021-04-25] MEDS: LACTINEX CHEW TAB PO SCH ×2 (10:46→21:16)
[2021-04-25] MEDS: CHOLECALCIFEROL (VIT D3) 1000 UNIT (25 mcg) TAB PO SCH (10:46)
[2021-04-25] MEDS: THIAMINE 100 MG TAB PO SCH (10:46)
[2021-04-25] MEDS: DULoxetine 30 MG CAP PO SCH ×2 (10:46→21:16)
[2021-04-25] MEDS: DOCUSATE SODIUM 100 MG CAP PO SCH (10:48)
[2021-04-25] MEDS: ENOXAPARIN 40 MG/0.4 ML INJ SUB-Q SCH (10:48)
[2021-04-25] MEDS: lamoTRIgine 100 MG TAB PO SCH ×3 (10:54→21:16)
[2021-04-25] MEDS: QUEtiapine 100 MG TAB PO SCH ×3 (10:54→21:16)
--- NOTE | 2021-04-25 16:48 | Progress Note ---
Subjective Date of service: 04/22/21 Principal diagnosis: Bipolar disorder Subjective Comment: late Entry: Patient was seen resting in the bed. Patient continues to be confused and disorganized. Patient states mood as fine. She states sleep and appetite as good. She denies suicidal/ homicidal ideation. REVIEW OF SYSTEMS Constitutional: Negative for weight loss ENT: Negative for stridor Respiratory: Negative for cough or hemoptysis All other systems reviewed and are negative MENTAL STATUS EXAMINATION General Appearance and Behavior: Age appropriate, good hygiene, wearing appropriate clothes, fair eye contact, cooperative with questioning. Cooperation: Partially withdrawn Psychomotor Behavior: Psychomotor normal Mood: fine Affect and affective range: Congruent with mood Thought Process: Illogical, Thought Content: Disorganized Speech: Normal rate and volume Intellectual Functioning: Average Suicidal Ideation: Denies Homicidal Ideation:Denies Impulse Control: Impaired Insight and Judgment: Limited insight and judgment Memory: Short-term memory impaired Attention: Divided attention impaired Orientation: Alert, oriented to self Assessment and Plan (1) Bipolar disorder with psychotic features Current Visit: Yes Status: Acute Treatment Patient admitted for inpatient psychiatric evaluation, medication adjustment and close monitoring The patient's behavior, mood, sleep and appetite will be closely monitored. Patient enrolled in individual and group therapeutic sessions and encouraged to attend. Patient provided with a safe and structured environment. Patient's physical health needs will be addressed by the Hospitalist. Hospitalist Consulted Labs including CBC, CMP, Lipid profile and Hemoglobin A1C levels ordered for baseline reference Social Assessment will be completed and the Tugboat Operator will work with patient and family to ensure a suitable and safe disposition Medication adjustment will be made as clinically indicated Start Mirtazepine 7.5mg po qhs to increase appetite and improve sleep Usual Wellness Anabaptism/Preservation: - Start Trazodone 50 mg po QHS & 50 mg po QHS PRN between 10 PM & 2 AM for insomnia - Start Melatonin 5 mg po QHS to promote circadian rhythm - Start [place]-3 for brain health, reduce impulsivity, and as adjunctive treatment for mood disorder, continue upon discharge given overall benefits. - Start B1 prophylaxis with 200 mg po for 5 days The patient agreed on the treatment plan, understood the risk, benefit, alternative treatment, potential consequence of no treatment, and gave informed consent. Estimated days: 2 Post hospital care: primary care provider, psychiatric provider Medications and Allergies Medications and Allergies Allergies Allergy/AdvReac Type Severity Reaction Status Date / Time lithium AdvReac Intermediate Unknown Verified 04/23/21 23:14 Home Medications Medication Instructions Recorded Confirmed Last Taken Type Amoxicillin [Trimox CAP] 1,000 mg PO BID 04/07/21 04/07/21 Unknown History Enoxaparin 40 mg SUB-Q DAILY 04/07/21 04/07/21 Unknown History Lactobacillus Acidophilus 2 cap PO BID 04/07/21 04/07/21 Unknown History [Acidophilus Lactobacilli] Omeprazole 20 mg PO DAILY 04/07/21 04/07/21 Unknown History Oxycodone HCl [oxyCODONE] 10 mg PO Q6HR PRN 04/07/21 04/07/21 Unknown History QUEtiapine [SEROquel] 25 mg PO Q6HR PRN 04/07/21 04/07/21 Unknown History Thiamine [Vitamin B-1] 100 mg PO DAILY 04/07/21 04/07/21 Unknown History bisacodyL [Dulcolax tab] 10 mg PO DAILY PRN 04/07/21 04/07/21 Unknown History lamoTRIgine [LaMICtal] 100 mg PO BID 04/07/21 04/07/21 Unknown History traMADoL [Ultram 50 MG tab] 50 mg PO Q12HR PRN 04/07/21 04/07/21 Unknown History Cholecalciferol Vit D3 [Vitamin D3 1,000 unit PO DAILY tablet 04/19/21 Unknown Rx 1,000 UNIT TAB] DULoxetine [Cymbalta] 60 mg PO QDAY #60 capsule 04/19/21 Unknown Rx Docusate Sodium [Colace CAP] 100 mg PO DAILY capsule 04/19/21 Unknown Rx Mirtazapine 7.5 mg PO DAILY #30 tablet 04/19/21 Unknown Rx QUEtiapine [SEROquel] 250 mg PO TID #90 tablet 04/19/21 Unknown Rx Active Meds: Active Medications Bisacodyl (Bisacodyl 5 Mg Tab) 10 mg PO DAILY PRN PRN Reason: Constipation Cholecalciferol (Cholecalciferol (Vit D3) 1000 Unit (25 Mcg) Tab) 1,000 unit PO DAILY [facility] Last Admin: 04/25/21 10:46 Dose: 1,000 unit Documented by: Docusate Sodium (Docusate Sodium 100 Mg Cap) 100 mg PO DAILY [facility] Last Admin: 04/25/21 10:48 Dose: Not Given Documented by: Duloxetine HCl (Duloxetine 30 Mg Cap) 60 mg PO BID [facility] Last Admin: 04/25/21 10:46 Dose: 60 mg Documented by: Enoxaparin Sodium (Enoxaparin 40 Mg/0.4 Ml Inj) 40 mg SUB-Q DAILY [facility]; Protocol Last Admin: 04/25/21 10:48 Dose: 40 mg Documented by: Lactobacillus Acidophilus (Lactinex Chew Tab) 2 each PO BID [facility] Last Admin: 04/25/21 10:46 Dose: 2 each Documented by: Lamotrigine (Lamotrigine 100 Mg Tab) 100 mg PO TID [facility] Last Admin: 04/25/21 10:54 Dose: 100 mg Documented by: Mirtazapine (Mirtazapine 15 Mg Tab) 7.5 mg PO QHS [facility] Last Admin: 04/24/21 21:50 Dose: 7.5 mg Documented by: Oxycodone HCl (Oxycodone 5 Mg Tab) 10 mg PO Q12H PRN PRN Reason: Pain, Moderate (4-6) Last Admin: 04/18/21 09:12 Dose: 10 mg Documented by: Pantoprazole Sodium (Pantoprazole 20 Mg Tab) 20 mg PO QDAY [facility] Last Admin: 04/25/21 10:46 Dose: 20 mg Documented by: Quetiapine Fumarate (Quetiapine 100 Mg Tab) 250 mg PO TID [facility] Last Admin: 04/25/21 10:54 Dose: 250 mg Documented by: Thiamine HCl (Thiamine 100 Mg Tab) 100 mg PO DAILY [facility] Last Admin: 04/25/21 10:46 Dose: 100 mg Documented by: Results - Results Labs/Vitals: Laboratory Last Values WBC 6.3 K/mm3 (4.5-11.0) 04/07/21 12:56 RBC 3.39 M/mm3 (3.65-5.03) L 04/07/21 12:56 Hgb 9.8 gm/dl (10.1-14.3) L 04/07/21 12:56 Hct 30.1 % (30.3-42.9) L 04/07/21 12:56 MCV 89 fl (79-97) 04/07/21 12:56 MCH 29 pg (28-32) 04/07/21 12:56 MCHC 33 % (30-34) 04/07/21 12:56 RDW 18.4 % (13.2-15.2) H 04/07/21 12:56 Plt Count 402 K/mm3 (140-440) 04/07/21 12:56 Lymph % (Auto) 18.3 % (13.4-35.0) 04/07/21 12:56 [place] % (Auto) 7.3 % (0.0-7.3) 04/07/21 12:56 Eos % (Auto) 0.3 % (0.0-4.3) 04/07/21 12:56 Baso % (Auto) 0.3 % (0.0-1.8) 04/07/21 12:56 Lymph # (Auto) 1.2 K/mm3 (1.2-5.4) 04/07/21 12:56 [place] # (Auto) 0.5 K/mm3 (0.0-0.8) 04/07/21 12:56 Eos # (Auto) 0.0 K/mm3 (0.0-0.4) 04/07/21 12:56 Baso # (Auto) 0.0 K/mm3 (0.0-0.1) 04/07/21 12:56 Seg Neutrophils % 73.8 % (40.0-70.0) H 04/07/21 12:56 Seg Neutrophils # 4.7 K/mm3 (1.8-7.7) 04/07/21 12:56 Sodium 131 mmol/L (137-145) L 04/07/21 12:56 Potassium 3.6 mmol/L (3.6-5.0) 04/07/21 12:56 Chloride 97.3 mmol/L (98-107) L 04/07/21 12:56 Carbon Dioxide 21 mmol/L (22-30) L 04/07/21 12:56 Anion Gap 16 mmol/L 04/07/21 12:56 BUN 9 mg/dL (7-17) 04/07/21 12:56 Creatinine 0.7 mg/dL (0.6-1.2) 04/07/21 12:56 Estimated GFR > 60 ml/min 04/07/21 12:56 BUN/Creatinine Ratio 13 % 04/07/21 12:56 Glucose 181 mg/dL (65-100) H 04/07/21 12:56 POC Glucose 90 mg/dL (70-105) 04/06/21 21:28 Calcium 8.2 mg/dL (8.4-10.2) L 04/07/21 12:56 Total Bilirubin 0.20 mg/dL (0.1-1.2) 04/07/21 12:56 AST 23 units/L (5-40) 04/07/21 12:56 ALT 21 units/L (7-56) 04/07/21 12:56 Alkaline Phosphatase 334 units/L (35-129) H 04/07/21 12:56 Total Protein 5.3 g/dL (6.3-8.2) L 04/07/21 12:56 Albumin 2.5 g/dL (3.9-5) L 04/07/21 12:56 Albumin/Globulin Ratio 0.9 % 04/07/21 12:56 Coronavirus (PCR) Negative (Negative) 04/19/21 08:27 Last Vital Signs Temp 98.4 F 04/25/21 08:49 Pulse 112 H 04/25/21 08:49 Resp 18 04/25/21 08:49 BP 140/86 04/25/21 08:49 Pulse Ox 99 04/25/21 08:49
[2021-04-25] MEDS: MIRTAZAPINE 15 MG TAB PO SCH (21:16)
--- NOTE | 2021-04-26 09:35 | Progress Note ---
Subjective Date of service: 04/26/21 Narrative: The patient was seen eating breakfast in the activity room. Patient is calm. Patient reports doing well. States mood as " fine" No complains. She denies any current suicidal/homicidal and denies Hallucinations. REVIEW OF SYSTEMS Constitutional: Negative for weight loss ENT: Negative for stridor Respiratory: Negative for cough or hemoptysis All other systems reviewed and are negative MENTAL STATUS EXAMINATION General Appearance and Behavior: Age appropriate, good hygiene, wearing appropriate clothes, fair eye contact, cooperative with questioning. Cooperation: Partially withdrawn Psychomotor Behavior: Psychomotor normal Mood: "fine" Affect and affective range: incongruent with mood Thought Process: Illogical, Thought Content: None Speech: Normal rate Intellectual Functioning: Average Suicidal Ideation: denies Homicidal Ideation:denies Impulse Control: Impaired Insight and Judgment: Limited insight and judgment Memory: Short-term memory impaired Attention: Divided attention impaired Orientation: Alert, oriented to self Assessment and Plan (1) Bipolar disorder with psychotic features Current Visit: Yes Status: Acute Treatment Patient admitted for inpatient psychiatric evaluation, medication adjustment and close monitoring The patient's behavior, mood, sleep and appetite will be closely monitored. Patient enrolled in individual and group therapeutic sessions and encouraged to attend. Patient provided with a safe and structured environment. Patient's physical health needs will be addressed by the Hospitalist. Hospitalist Consulted Labs including CBC, CMP, Lipid profile and Hemoglobin A1C levels ordered for baseline reference Social Assessment will be completed and the Bag Adjuster will work with patient and family to ensure a suitable and safe disposition Medication adjustment will be made as clinically indicated Continue- Mirtazepine 7.5mg po qhs to increase appetite and improve sleep Continue Lamotrigine 100mg TID Usual Wellness Mu-Ism/Preservation: - Start Trazodone 50 mg po QHS & 50 mg po QHS PRN between 10 PM & 2 AM for insomnia - Start Melatonin 5 mg po QHS to promote circadian rhythm - Start [place]-3 for brain health, reduce impulsivity, and as adjunctive treatment for mood disorder, continue upon discharge given overall benefits. - Start B1 prophylaxis with 200 mg po for 5 days The patient agreed on the treatment plan, understood the risk, benefit, alternative treatment, potential consequence of no treatment, and gave informed consent. Estimated days: 2 Post hospital care: primary care provider, psychiatric provider Medications and Allergies Objective - Labs 04/07/21 12:56 04/07/21 12:56
[2021-04-26] MEDS: PANTOPRAZOLE 20 MG TAB PO SCH (10:08)
[2021-04-26] MEDS: DOCUSATE SODIUM 100 MG CAP PO SCH ×2 (10:08)
[2021-04-26] MEDS: DULoxetine 30 MG CAP PO SCH ×2 (10:09→22:11)
[2021-04-26] MEDS: QUEtiapine 100 MG TAB PO SCH ×3 (10:09→22:12)
[2021-04-26] MEDS: THIAMINE 100 MG TAB PO SCH (10:09)
[2021-04-26] MEDS: lamoTRIgine 100 MG TAB PO SCH ×3 (10:09→20:45)
[2021-04-26] MEDS: ENOXAPARIN 40 MG/0.4 ML INJ SUB-Q SCH (10:11)
[2021-04-26] MEDS: LACTINEX CHEW TAB PO SCH ×2 (10:11→22:10)
[2021-04-26] MEDS: CHOLECALCIFEROL (VIT D3) 1000 UNIT (25 mcg) TAB PO SCH (10:11)
[2021-04-26] MEDS: MIRTAZAPINE 15 MG TAB PO SCH (22:11)
[2021-04-27 09:21] VITALS: BP 95/67
[2021-04-27] MEDS: LACTINEX CHEW TAB PO SCH (09:22)
[2021-04-27] MEDS: DULoxetine 30 MG CAP PO SCH (09:22)
[2021-04-27] MEDS: lamoTRIgine 100 MG TAB PO SCH ×2 (09:22→14:51)
[2021-04-27] MEDS: ENOXAPARIN 40 MG/0.4 ML INJ SUB-Q SCH (09:22)
[2021-04-27] MEDS: THIAMINE 100 MG TAB PO SCH (09:23)
[2021-04-27] MEDS: CHOLECALCIFEROL (VIT D3) 1000 UNIT (25 mcg) TAB PO SCH (09:23)
[2021-04-27] MEDS: QUEtiapine 100 MG TAB PO SCH ×2 (09:23→14:51)
[2021-04-27] MEDS: PANTOPRAZOLE 20 MG TAB PO SCH (09:23)
[2021-04-27] MEDS: DOCUSATE SODIUM 100 MG CAP PO SCH (09:30)
--- NOTE | 2021-04-27 09:30 | Progress Note ---
Subjective Date of service: 04/27/21 Principal diagnosis: Bipolar disorder Subjective Comment: Per Nurse Note: Received patient at 1900. She is awake and resting in bed. She denies needs. Will continue to monitor patient for safety. Patient was seen eating breakfast in the activity room. Patient is easily angered . Nurse reports that patient was up all night. She states she is fine. Patient denies any current suicidal/homicidal ideation and denies hallucinations of any sort. REVIEW OF SYSTEMS Constitutional: Negative for weight loss ENT: Negative for stridor Respiratory: Negative for cough or hemoptysis All other systems reviewed and are negative MENTAL STATUS EXAMINATION General Appearance and Behavior: Age appropriate, good hygiene, wearing appropriate clothes, fair eye contact, cooperative with questioning. Cooperation: Partially withdrawn Psychomotor Behavior: Psychomotor normal Mood: "fine" Affect and affective range: incongruent with mood Thought Process: Illogical, Thought Content: None Speech: Normal rate Intellectual Functioning: Average Suicidal Ideation: denies Homicidal Ideation:denies Impulse Control: Impaired Insight and Judgment: Limited insight and judgment Memory: Short-term memory impaired Attention: Divided attention impaired Orientation: Alert, oriented to self Assessment and Plan (1) Bipolar disorder with psychotic features Current Visit: Yes Status: Acute Treatment Patient admitted for inpatient psychiatric evaluation, medication adjustment and close monitoring The patient's behavior, mood, sleep and appetite will be closely monitored. Patient enrolled in individual and group therapeutic sessions and encouraged to attend. Patient provided with a safe and structured environment. Patient's physical health needs will be addressed by the Hospitalist. Hospitalist Consulted Labs including CBC, CMP, Lipid profile and Hemoglobin A1C levels ordered for baseline reference Social Assessment will be completed and the Analysis Or Research Safety Inspector will work with patient and family to ensure a suitable and safe disposition Medication adjustment will be made as clinically indicated Continue- Mirtazepine 7.5mg po qhs to increase appetite and improve sleep Continue Lamotrigine 100mg TID Usual Wellness Mormonism/Preservation: - Start Trazodone 50 mg po QHS & 50 mg po QHS PRN between 10 PM & 2 AM for insomnia - Start Melatonin 5 mg po QHS to promote circadian rhythm - Start [place]-3 for brain health, reduce impulsivity, and as adjunctive treatment for mood disorder, continue upon discharge given overall benefits. - Start B1 prophylaxis with 200 mg po for 5 days The patient agreed on the treatment plan, understood the risk, benefit, alternative treatment, potential consequence of no treatment, and gave informed consent. Estimated days: 2 Post hospital care: primary care provider, psychiatric provider Medications and Allergies Medications and Allergies Allergies Allergy/AdvReac Type Severity Reaction Status Date / Time lithium AdvReac Intermediate Unknown Verified 04/23/21 23:14 Home Medications Medication Instructions Recorded Confirmed Last Taken Type Amoxicillin [Trimox CAP] 1,000 mg PO BID 04/07/21 04/07/21 Unknown History Enoxaparin 40 mg SUB-Q DAILY 04/07/21 04/07/21 Unknown History Lactobacillus Acidophilus 2 cap PO BID 04/07/21 04/07/21 Unknown History [Acidophilus Lactobacilli] Omeprazole 20 mg PO DAILY 04/07/21 04/07/21 Unknown History Oxycodone HCl [oxyCODONE] 10 mg PO Q6HR PRN 04/07/21 04/07/21 Unknown History QUEtiapine [SEROquel] 25 mg PO Q6HR PRN 04/07/21 04/07/21 Unknown History Thiamine [Vitamin B-1] 100 mg PO DAILY 04/07/21 04/07/21 Unknown History bisacodyL [Dulcolax tab] 10 mg PO DAILY PRN 04/07/21 04/07/21 Unknown History lamoTRIgine [LaMICtal] 100 mg PO BID 04/07/21 04/07/21 Unknown History traMADoL [Ultram 50 MG tab] 50 mg PO Q12HR PRN 04/07/21 04/07/21 Unknown History Cholecalciferol Vit D3 [Vitamin D3 1,000 unit PO DAILY tablet 04/19/21 Unknown Rx 1,000 UNIT TAB] DULoxetine [Cymbalta] 60 mg PO QDAY #60 capsule 04/19/21 Unknown Rx Docusate Sodium [Colace CAP] 100 mg PO DAILY capsule 04/19/21 Unknown Rx Mirtazapine 7.5 mg PO DAILY #30 tablet 04/19/21 Unknown Rx QUEtiapine [SEROquel] 250 mg PO TID #90 tablet 04/19/21 Unknown Rx Active Meds: Active Medications Bisacodyl (Bisacodyl 5 Mg Tab) 10 mg PO DAILY PRN PRN Reason: Constipation Cholecalciferol (Cholecalciferol (Vit D3) 1000 Unit (25 Mcg) Tab) 1,000 unit PO DAILY [facility] Last Admin: 04/26/21 10:11 Dose: 1,000 unit Documented by: Docusate Sodium (Docusate Sodium 100 Mg Cap) 100 mg PO DAILY [facility] Last Admin: 04/26/21 10:08 Dose: Not Given Documented by: Duloxetine HCl (Duloxetine 30 Mg Cap) 60 mg PO BID [facility] Last Admin: 04/26/21 22:11 Dose: 60 mg Documented by: Enoxaparin Sodium (Enoxaparin 40 Mg/0.4 Ml Inj) 40 mg SUB-Q DAILY [facility]; Protocol Last Admin: 04/26/21 10:11 Dose: 40 mg Documented by: Lactobacillus Acidophilus (Lactinex Chew Tab) 2 each PO BID [facility] Last Admin: 04/26/21 22:10 Dose: 2 each Documented by: Lamotrigine (Lamotrigine 100 Mg Tab) 100 mg PO TID [facility] Last Admin: 04/26/21 20:45 Dose: 100 mg Documented by: Mirtazapine (Mirtazapine 15 Mg Tab) 7.5 mg PO QHS [facility] Last Admin: 04/26/21 22:11 Dose: 7.5 mg Documented by: Oxycodone HCl (Oxycodone 5 Mg Tab) 10 mg PO Q12H PRN PRN Reason: Pain, Moderate (4-6) Last Admin: 04/18/21 09:12 Dose: 10 mg Documented by: Pantoprazole Sodium (Pantoprazole 20 Mg Tab) 20 mg PO QDAY [facility] Last Admin: 04/26/21 10:08 Dose: 20 mg Documented by: Quetiapine Fumarate (Quetiapine 100 Mg Tab) 250 mg PO TID [facility] Last Admin: 04/26/21 22:12 Dose: 250 mg Documented by: Thiamine HCl (Thiamine 100 Mg Tab) 100 mg PO DAILY [facility] Last Admin: 04/26/21 10:09 Dose: 100 mg Documented by: Results - Results Labs/Vitals: Laboratory Last Values WBC 6.3 K/mm3 (4.5-11.0) 04/07/21 12:56 RBC 3.39 M/mm3 (3.65-5.03) L 04/07/21 12:56 Hgb 9.8 gm/dl (10.1-14.3) L 04/07/21 12:56 Hct 30.1 % (30.3-42.9) L 04/07/21 12:56 MCV 89 fl (79-97) 04/07/21 12:56 MCH 29 pg (28-32) 04/07/21 12:56 MCHC 33 % (30-34) 04/07/21 12:56 RDW 18.4 % (13.2-15.2) H 04/07/21 12:56 Plt Count 402 K/mm3 (140-440) 04/07/21 12:56 Lymph % (Auto) 18.3 % (13.4-35.0) 04/07/21 12:56 Green % (Auto) 7.3 % (0.0-7.3) 04/07/21 12:56 Eos % (Auto) 0.3 % (0.0-4.3) 04/07/21 12:56 Baso % (Auto) 0.3 % (0.0-1.8) 04/07/21 12:56 Lymph # (Auto) 1.2 K/mm3 (1.2-5.4) 04/07/21 12:56 Green # (Auto) 0.5 K/mm3 (0.0-0.8) 04/07/21 12:56 Eos # (Auto) 0.0 K/mm3 (0.0-0.4) 04/07/21 12:56 Baso # (Auto) 0.0 K/mm3 (0.0-0.1) 04/07/21 12:56 Seg Neutrophils % 73.8 % (40.0-70.0) H 04/07/21 12:56 Seg Neutrophils # 4.7 K/mm3 (1.8-7.7) 04/07/21 12:56 Sodium 131 mmol/L (137-145) L 04/07/21 12:56 Potassium 3.6 mmol/L (3.6-5.0) 04/07/21 12:56 Chloride 97.3 mmol/L (98-107) L 04/07/21 12:56 Carbon Dioxide 21 mmol/L (22-30) L 04/07/21 12:56 Anion Gap 16 mmol/L 04/07/21 12:56 BUN 9 mg/dL (7-17) 04/07/21 12:56 Creatinine 0.7 mg/dL (0.6-1.2) 04/07/21 12:56 Estimated GFR > 60 ml/min 04/07/21 12:56 BUN/Creatinine Ratio 13 % 04/07/21 12:56 Glucose 181 mg/dL (65-100) H 04/07/21 12:56 POC Glucose 90 mg/dL (70-105) 04/06/21 21:28 Calcium 8.2 mg/dL (8.4-10.2) L 04/07/21 12:56 Total Bilirubin 0.20 mg/dL (0.1-1.2) 04/07/21 12:56 AST 23 units/L (5-40) 04/07/21 12:56 ALT 21 units/L (7-56) 04/07/21 12:56 Alkaline Phosphatase 334 units/L (35-129) H 04/07/21 12:56 Total Protein 5.3 g/dL (6.3-8.2) L 04/07/21 12:56 Albumin 2.5 g/dL (3.9-5) L 04/07/21 12:56 Albumin/Globulin Ratio 0.9 % 04/07/21 12:56 Coronavirus (PCR) Negative (Negative) 04/19/21 08:27 Last Vital Signs Temp 98.4 F 04/27/21 08:34 Pulse 114 H 04/27/21 08:34 Resp 18 04/27/21 08:34 BP 95/67 04/27/21 08:34 Pulse Ox 83 L 04/27/21 08:34
--- NOTE | 2021-04-27 09:37 | Progress Note ---
Subjective Date of service: 04/26/21 Principal diagnosis: Bipolar disorder Subjective Comment: Subjective Date of service: 04/26/21 Narrative: The patient was seen eating breakfast in the activity room. Patient is calm. Patient reports doing well. States mood as " fine" No complains. She denies any current suicidal/homicidal and denies Hallucinations. REVIEW OF SYSTEMS Constitutional: Negative for weight loss ENT: Negative for stridor Respiratory: Negative for cough or hemoptysis All other systems reviewed and are negative MENTAL STATUS EXAMINATION General Appearance and Behavior: Age appropriate, good hygiene, wearing appropriate clothes, fair eye contact, cooperative with questioning. Cooperation: Partially withdrawn Psychomotor Behavior: Psychomotor normal Mood: "fine" Affect and affective range: incongruent with mood Thought Process: Illogical, Thought Content: None Speech: Normal rate Intellectual Functioning: Average Suicidal Ideation: denies Homicidal Ideation:denies Impulse Control: Impaired Insight and Judgment: Limited insight and judgment Memory: Short-term memory impaired Attention: Divided attention impaired Orientation: Alert, oriented to self Assessment and Plan (1) Bipolar disorder with psychotic features Current Visit: Yes Status: Acute Treatment Patient admitted for inpatient psychiatric evaluation, medication adjustment and close monitoring The patient's behavior, mood, sleep and appetite will be closely monitored. Patient enrolled in individual and group therapeutic sessions and encouraged to attend. Patient provided with a safe and structured environment. Patient's physical health needs will be addressed by the Hospitalist. Hospitalist Consulted Labs including CBC, CMP, Lipid profile and Hemoglobin A1C levels ordered for baseline reference Social Assessment will be completed and the Ward Helper will work with pa tient and family to ensure a suitable and safe disposition Medication adjustment will be made as clinically indicated Continue- Mirtazepine 7.5mg po qhs to increase appetite and improve sleep Continue Lamotrigine 100mg TID Usual Wellness Zoroastrian/Preservation: - Start Trazodone 50 mg po QHS & 50 mg po QHS PRN between 10 PM & 2 AM for insomnia - Start Melatonin 5 mg po QHS to promote circadian rhythm - Start [place]-3 for brain health, reduce impulsivity, and as adjunctive treatment for mood disorder, continue upon discharge given overall benefits. - Start B1 prophylaxis with 200 mg po for 5 days The patient agreed on the treatment plan, understood the risk, benefit, alternative treatment, potential consequence of no treatment, and gave informed consent. Estimated days: 2 Post hospital care: primary care provider, psychiatric provider Medications and Allergies Objective Medications and Allergies Allergies Allergy/AdvReac Type Severity Reaction Status Date / Time lithium AdvReac Intermediate Unknown Verified 04/23/21 23:14 Home Medications Medication Instructions Recorded Confirmed Last Taken Type Amoxicillin [Trimox CAP] 1,000 mg PO BID 04/07/21 04/07/21 Unknown History Enoxaparin 40 mg SUB-Q DAILY 04/07/21 04/07/21 Unknown History Lactobacillus Acidophilus 2 cap PO BID 04/07/21 04/07/21 Unknown History [Acidophilus Lactobacilli] Omeprazole 20 mg PO DAILY 04/07/21 04/07/21 Unknown History Oxycodone HCl [oxyCODONE] 10 mg PO Q6HR PRN 04/07/21 04/07/21 Unknown History QUEtiapine [SEROquel] 25 mg PO Q6HR PRN 04/07/21 04/07/21 Unknown History Thiamine [Vitamin B-1] 100 mg PO DAILY 04/07/21 04/07/21 Unknown History bisacodyL [Dulcolax tab] 10 mg PO DAILY PRN 04/07/21 04/07/21 Unknown History lamoTRIgine [LaMICtal] 100 mg PO BID 04/07/21 04/07/21 Unknown History traMADoL [Ultram 50 MG tab] 50 mg PO Q12HR PRN 04/07/21 04/07/21 Unknown History Cholecalciferol Vit D3 [Vitamin D3 1,000 unit PO DAILY tablet 04/19/21 Unknown Rx 1,000 UNIT TAB] DULoxetine [Cymbalta] 60 mg PO QDAY #60 capsule 04/19/21 Unknown Rx Docusate Sodium [Colace CAP] 100 mg PO DAILY capsule 04/19/21 Unknown Rx Mirtazapine 7.5 mg PO DAILY #30 tablet 04/19/21 Unknown Rx QUEtiapine [SEROquel] 250 mg PO TID #90 tablet 04/19/21 Unknown Rx Active Meds: Active Medications Bisacodyl (Bisacodyl 5 Mg Tab) 10 mg PO DAILY PRN PRN Reason: Constipation Cholecalciferol (Cholecalciferol (Vit D3) 1000 Unit (25 Mcg) Tab) 1,000 unit PO DAILY [facility] Last Admin: 04/27/21 09:23 Dose: 1,000 unit Documented by: Docusate Sodium (Docusate Sodium 100 Mg Cap) [address] [facility] Last Admin: 04/27/21 09:30 Dose: Not Given Documented by: Duloxetine HCl (Duloxetine 30 Mg Cap) [address] [facility] Last Admin: 04/27/21 09:22 Dose: 60 mg Documented by: Enoxaparin Sodium (Enoxaparin 40 Mg/0.4 Ml Inj) 40 mg SUB-Q DAILY [facility]; Protocol Last Admin: 04/27/21 09:22 Dose: 40 mg Documented by: Lactobacillus Acidophilus (Lactinex Chew Tab) [address] [facility] Last Admin: 04/27/21 09:22 Dose: 2 each Documented by: Lamotrigine (Lamotrigine 100 Mg Tab) [address] [facility] Last Admin: 04/27/21 09:22 Dose: 100 mg Documented by: Mirtazapine (Mirtazapine 15 Mg Tab) 7.[address] [facility] Last Admin: 04/26/21 22:11 Dose: 7.5 mg Documented by: Oxycodone HCl (Oxycodone 5 Mg Tab) 10 mg PO Q12H PRN PRN Reason: Pain, Moderate (4-6) Last Admin: 04/18/21 09:12 Dose: 10 mg Documented by: Pantoprazole Sodium (Pantoprazole 20 Mg Tab) [address] [facility] Last Admin: 04/27/21 09:23 Dose: 20 mg Documented by: Quetiapine Fumarate (Quetiapine 100 Mg Tab) [address] [facility] Last Admin: 04/27/21 09:23 Dose: 250 mg Documented by: Thiamine HCl (Thiamine 100 Mg Tab) [address] [facility] Last Admin: 04/27/21 09:23 Dose: 100 mg Documented by: Results - Results Labs/Vitals: Laboratory Last Values WBC 6.3 K/mm3 (4.5-11.0) 04/07/21 12:56 RBC 3.39 M/mm3 (3.65-5.03) L 04/07/21 12:56 Hgb 9.8 gm/dl (10.1-14.3) L 04/07/21 12:56 Hct 30.1 % (30.3-42.9) L 04/07/21 12:56 MCV 89 fl (79-97) 04/07/21 12:56 MCH 29 pg (28-32) 04/07/21 12:56 MCHC 33 % (30-34) 04/07/21 12:56 RDW 18.4 % (13.2-15.2) H 04/07/21 12:56 Plt Count 402 K/mm3 (140-440) 04/07/21 12:56 Lymph % (Auto) 18.3 % (13.4-35.0) 04/07/21 12:56 [place] % (Auto) 7.3 % (0.0-7.3) 04/07/21 12:56 Eos % (Auto) 0.3 % (0.0-4.3) 04/07/21 12:56 Baso % (Auto) 0.3 % (0.0-1.8) 04/07/21 12:56 Lymph # (Auto) 1.2 K/mm3 (1.2-5.4) 04/07/21 12:56 [place] # (Auto) 0.5 K/mm3 (0.0-0.8) 04/07/21 12:56 Eos # (Auto) 0.0 K/mm3 (0.0-0.4) 04/07/21 12:56 Baso # (Auto) 0.0 K/mm3 (0.0-0.1) 04/07/21 12:56 Seg Neutrophils % 73.8 % (40.0-70.0) H 04/07/21 12:56 Seg Neutrophils # 4.7 K/mm3 (1.8-7.7) 04/07/21 12:56 Sodium 131 mmol/L (137-145) L 04/07/21 12:56 Potassium 3.6 mmol/L (3.6-5.0) 04/07/21 12:56 Chloride 97.3 mmol/L (98-107) L 04/07/21 12:56 Carbon Dioxide 21 mmol/L (22-30) L 04/07/21 12:56 Anion Gap 16 mmol/L 04/07/21 12:56 BUN 9 mg/dL (7-17) 04/07/21 12:56 Creatinine 0.7 mg/dL (0.6-1.2) 04/07/21 12:56 Estimated GFR > 60 ml/min 04/07/21 12:56 BUN/Creatinine Ratio 13 % 04/07/21 12:56 Glucose 181 mg/dL (65-100) H 04/07/21 12:56 POC Glucose 90 mg/dL (70-105) 04/06/21 21:28 Calcium 8.2 mg/dL (8.4-10.2) L 04/07/21 12:56 Total Bilirubin 0.20 mg/dL (0.1-1.2) 04/07/21 12:56 AST 23 units/L (5-40) 04/07/21 12:56 ALT 21 units/L (7-56) 04/07/21 12:56 Alkaline Phosphatase 334 units/L (35-129) H 04/07/21 12:56 Total Protein 5.3 g/dL (6.3-8.2) L 04/07/21 12:56 Albumin 2.5 g/dL (3.9-5) L 04/07/21 12:56 Albumin/Globulin Ratio 0.9 % 04/07/21 12:56 Coronavirus (PCR) Negative (Negative) 04/19/21 08:27 Last Vital Signs Temp 98.4 F 04/27/21 08:34 Pulse 114 H 04/27/21 08:34 Resp 18 04/27/21 08:34 BP 95/67 04/27/21 08:34 Pulse Ox 83 L 04/27/21 08:34
--- NOTE | 2021-04-27 10:40 | Discharge Summary ---
Providers - Providers Date of Admission: 04/06/21 20:34 Attending physician: APRIL GANDHI MD 04/06/21 17:49 Consult to Physician [CONS] Routine Comment: Consulting Provider: VANCE ZIEGLER Physician Instructions: Reason For Exam: medical management Consult to Wound/ET Nurse [CONS] Routine Reason For Exam: wound eval 04/07/21 05:48 Physical Therapy Evaluation and Treat [CONS] Routine Comment: Reason For Exam: difficuty walking 04/07/21 05:50 Consult to Dietitian/Nutrition [CONS] Routine Physician Instructions: Reason For Exam: Reason for Consult: Poor oral intake Primary care physician: BENCH ASSEMBLER Hospitalization Condition: Stable Disposition: DC-30 STILL A PATIENT Allergies/Adverse Reactions: Allergies lithium Adverse Reaction (Intermediate, Verified 04/23/21 23:14) Unknown Vital Signs: Last Vital Signs Temp 98.4 F 04/27/21 08:34 Pulse 114 H 04/27/21 08:34 Resp 18 04/27/21 08:34 BP 95/67 04/27/21 08:34 Pulse Ox 83 L 04/27/21 08:34 Last Lab: Laboratory Last Values WBC 6.3 K/mm3 (4.5-11.0) 04/07/21 12:56 RBC 3.39 M/mm3 (3.65-5.03) L 04/07/21 12:56 Hgb 9.8 gm/dl (10.1-14.3) L 04/07/21 12:56 Hct 30.1 % (30.3-42.9) L 04/07/21 12:56 MCV 89 fl (79-97) 04/07/21 12:56 MCH 29 pg (28-32) 04/07/21 12:56 MCHC 33 % (30-34) 04/07/21 12:56 RDW 18.4 % (13.2-15.2) H 04/07/21 12:56 Plt Count 402 K/mm3 (140-440) 04/07/21 12:56 Lymph % (Auto) 18.3 % (13.4-35.0) 04/07/21 12:56 [place] % (Auto) 7.3 % (0.0-7.3) 04/07/21 12:56 Eos % (Auto) 0.3 % (0.0-4.3) 04/07/21 12:56 Baso % (Auto) 0.3 % (0.0-1.8) 04/07/21 12:56 Lymph # (Auto) 1.2 K/mm3 (1.2-5.4) 04/07/21 12:56 [place] # (Auto) 0.5 K/mm3 (0.0-0.8) 04/07/21 12:56 Eos # (Auto) 0.0 K/mm3 (0.0-0.4) 04/07/21 12:56 Baso # (Auto) 0.0 K/mm3 (0.0-0.1) 04/07/21 12:56 Seg Neutrophils % 73.8 % (40.0-70.0) H 04/07/21 12:56 Seg Neutrophils # 4.7 K/mm3 (1.8-7.7) 04/07/21 12:56 Sodium 131 mmol/L (137-145) L 04/07/21 12:56 Potassium 3.6 mmol/L (3.6-5.0) 04/07/21 12:56 Chloride 97.3 mmol/L (98-107) L 04/07/21 12:56 Carbon Dioxide 21 mmol/L (22-30) L 04/07/21 12:56 Anion Gap 16 mmol/L 04/07/21 12:56 BUN 9 mg/dL (7-17) 04/07/21 12:56 Creatinine 0.7 mg/dL (0.6-1.2) 04/07/21 12:56 Estimated GFR > 60 ml/min 04/07/21 12:56 BUN/Creatinine Ratio 13 % 04/07/21 12:56 Glucose 181 mg/dL (65-100) H 04/07/21 12:56 POC Glucose 90 mg/dL (70-105) 04/06/21 21:28 Calcium 8.2 mg/dL (8.4-10.2) L 04/07/21 12:56 Total Bilirubin 0.20 mg/dL (0.1-1.2) 04/07/21 12:56 AST 23 units/L (5-40) 04/07/21 12:56 ALT 21 units/L (7-56) 04/07/21 12:56 Alkaline Phosphatase 334 units/L (35-129) H 04/07/21 12:56 Total Protein 5.3 g/dL (6.3-8.2) L 04/07/21 12:56 Albumin 2.5 g/dL (3.9-5) L 04/07/21 12:56 Albumin/Globulin Ratio 0.9 % 04/07/21 12:56 Coronavirus (PCR) Negative (Negative) 04/19/21 08:27 Core Measure Documentation - Palliative Care Palliative Care/ Comfort Measures: Not Applicable - Core Measures Any of the following diagnoses?: none Exam - Constitutional Vitals: Temp Pulse Resp BP Pulse Ox 98.4 F 114 H 18 95/67 83 L 04/27/21 08:34 04/27/21 08:34 04/27/21 08:34 04/27/21 08:34 04/27/21 08:34 Plan Activity: advance as tolerated Weight Bearing Status: Weight Bear as Tolerated Diet: regular Care Plan Goals: Maintain good and stable mental health Plan of Treatment: The patient should be compliant with medications, not to use drugs and not to drink alcohol. The patient understands that if suicidal ideas, homicidal ideas, or any endangering thoughts arise, the patient should immediately seek for emergent assistance including but not limited to crisis hot line and emergency room. Follow up with outpatient Psychiatrist and PCP within 7 - 14 days of discharge. Assessment: Bipolar Disorder Follow up with: PRIMARY CARE, [Primary Care Provider] - 7 Days Prescriptions: Mirtazapine [Remeron 15mg TAB] 7.5 mg PO QHS 30 Days #30 tablet DULoxetine [Cymbalta] 60 mg PO QDAY #60 capsule DULoxetine [Cymbalta] 60 mg PO BID 30 Days #60 capsule Mirtazapine 7.5 mg PO DAILY #30 tablet QUEtiapine [SEROquel] 250 mg PO TID 30 Days #90 tablet QUEtiapine [SEROquel] 250 mg PO TID #90 tablet
== END 2021-04-27 17:46 | disposition home or self-care (01) | DRG 885 ==
LOC: 3A 17:16 → UNDOADMIN 17:16 → 5A 20:34
PROVIDERS: ADMIT Psychiatry & Neurology Psychiatry; ATTEND Psychiatry & Neurology Psychiatry
DX: F31.89 Other bipolar disorder (principal); F01.51 Vascular dementia, unspecified severity, with behavioral disturbance; G93.49 Other encephalopathy; Z20.822 Contact with and (suspected) exposure to COVID-19; I67.2 Cerebral atherosclerosis; G89.4 Chronic pain syndrome; K21.9 Gastro-esophageal reflux disease without esophagitis; F41.9 Anxiety disorder, unspecified; J45.909 Unspecified asthma, uncomplicated; M81.0 Age-related osteoporosis without current pathological fracture; Z96.641 Presence of right artificial hip joint; Z88.8 Allergy status to other drugs, medicaments and biological substances; Z79.899 Other long term (current) drug therapy; Z79.891 Long term (current) use of opiate analgesic; Z79.01 Long term (current) use of anticoagulants; Z63.5 Disruption of family by separation and divorce; Z82.49 Family history of ischemic heart disease and other diseases of the circulatory system
CPT/HCPCS: 36415; 71045; 80053; 82962; 85025; G0378; J1650; U0003